=== PATIENT | female | born 1990 | race Caucasian/White ===

== ENCOUNTER 2016-05-29 19:40 | Emergency (ER) | payer OTHER ==
[~2016-05-29] VITALS: Ht 154.9 cm; Wt 52.2 kg
[2016-05-29] MEDS ORDERED: LAMI200T3 PO (19:59)
[2016-05-29] MEDS ORDERED: TYLE325T5 PO (19:59)
[2016-05-29] MEDS ORDERED: SEASTAB PO (19:59)
[2016-05-29] MEDS ORDERED: RISP0.5T16 PO (19:59)
[2016-05-29] MEDS ORDERED: BUSP10TA PO (19:59)
[2016-05-29] MEDS ORDERED: NS 1,000 ML IV SCH (21:17)
[2016-05-29] MEDS: MORPHINE 4 MG/ML 1ML SYRINGE IV PRN ×2 (21:30→23:42)
[2016-05-29 21:37] LABS: CONTROL LINE UCG INT CTR LINE PRESENT
[2016-05-29 21:40] LABS: BASO % 0.3 % (0.0-1.0); EOS # 0.1 K/mm3 (0.0-0.50); EOS % 1.8 % (0.0-3.0); LARGE UNSTAINED CELL # 0.1 K/mm3 (0.0-0.4); LYMPH # 3.3 K/mm3 (1.5-6.5); LYMPH % 49.6 % (24.0-44.0); MEAN CORPUSCULAR HEMOGLOBIN 31.2 pg (27.0-33.0); MEAN CORPUSCULAR HGB CONC 33.4 g/dl (32.0-36.5); MEAN CORPUSCULAR VOLUME 93.4 fl (80.0-96.0); MONO # 0.4 K/mm3 (0.0-0.8); MONO % 5.6 % (0.0-5.0); NEUTROPHILS # 2.6 K/mm3 (1.8-7.7); NEUTROPHILS % 40.8 % (36.0-66.0); PLATELET COUNT, AUTOMATED 281 k/mm3 (150-450); RED CELL DISTRIBUTION WIDTH 12.2 % (11.5-14.5); WHITE BLOOD COUNT 6.4 K/mm3 (4.0-10.0)
[2016-05-29 22:11] LABS: ALBUMIN 4.1 GM/DL (3.2-5.2); ALBUMIN/GLOBULIN RATIO 1.32 (1.00-1.93); ALKALINE PHOSPHATASE 59 U/L (45-117); ALT/SGPT 17 U/L (12-78); ANION GAP 6 MEQ/L (8-16); AST/SGOT 9 U/L (15-37); BILIRUBIN,DIRECT < 0.1 MG/DL (0.0-0.2); BILIRUBIN,TOTAL 0.3 MG/DL (0.2-1.0); BLOOD UREA NITROGEN 13 MG/DL (7-18); CALCIUM LEVEL 8.6 MG/DL (8.5-10.1); CARBON DIOXIDE LEVEL 28 MEQ/L (21-32); CHLORIDE LEVEL 107 MEQ/L (98-107); CREATININE FOR GFR 1.12 MG/DL (0.55-1.02); GLOMERULAR FILTRATION RATE > 60.0 (>60); GLUCOSE, FASTING 77 MG/DL (70-105); POTASSIUM SERUM 3.7 MEQ/L (3.5-5.1); SODIUM LEVEL 141 MEQ/L (136-145); TOTAL PROTEIN 7.2 GM/DL (6.4-8.2)
--- NOTE | 2016-05-29 23:30 | REPUSA ---
CLINICAL HISTORY: Abdominal pain. TECHNIQUE: Multiple axial, sagittal and coronal CT images were obtained through the abdomen and pelvi s without administration of oral or IV contrast material. COMMENTS: The liver is of uniform attenuation without mass or defect. There is no intra or extrahepatic biliary ductal dilatation. The spleen is normal. The gallbladder is within normal limits. The pancreas is of normal contour and attenuation characteristics. There is no evidence of adrenal mass. The kidneys are normal in size, shape and configuration. No renal or ureteral calculi are identified. There is no hydroureter or hydronephrosis. There is no evidence for appendicitis. There is no bowel wall thickening. Large amount of fecal mater ial is noted throughout the colon compatible with constipation. No evidence for small or large bowel obstruction. There is no evidence of abdominal ascites or lymphadenopathy. There is no evidence of intrinsic or extrinsic bladder mass. There is no pelvic ascites or lymphadeno cyndi. The uterus and ovaries are WNL. Images of the lung bases show no evidence of pleural or parenchymal mass. There are no pleural effusi ons. The bony structures are free of lytic or blastic lesions. IMPRESSION: Large amount of fecal material is noted throughout the colon compatible with constipation. Thank you for your kind referral of this patient.
--- NOTE | 2016-05-30 01:10 | REPUSA ---
CLINICAL HISTORY: Pelvic pain. TECHNIQUE: Realtime sonographic images were obtained in multiple projections via TV approach. COMMENTS: The uterus is anteverted measuring 7.8x3.3x4.9 cm. The endometrial echo pattern is within normal limi ts measuring 2.6 mm. There is no evidence of free fluid within the pelvic cul-de-sac. The right ovary measures 3x1.6x1.9 cm and the left ovary measures 2.7x1.6x2 cm. Both ovaries are free of solid or cystic mass. There is no evidence for abnormal vascularity. IMPRESSION: Normal study. Thank you for your kind referral of this patient.
[2016-05-30 01:54] VITALS: BP 125/76
== END 2016-05-30 01:55 | disposition home or self-care (01) ==
LOC: M ED 20:37
DX: K59.00 Constipation, unspecified (principal)

== ENCOUNTER → 2016-07-09 | Outpatient (CLI) | payer OTHER ==
[~2016-07-09] MED LIST: BUSP10TA PO; LAMI200T3 PO; RISP0.5T16 PO; SEASTAB PO; TYLE325T5 PO
--- NOTE | 2016-07-10 02:48 | REP ---
Clinical: thoracic pain. Technique: AP, lateral, and swimmers views. Findings: Kyphosis is maintained. Frontal view demonstrates subtle scoliotic curvature through the thoracolumbar spine. Vertebral bodies intact. No acute fracture / compression injury or subluxation. No degenerative changes. Paravertebral soft tissues are normal. Impression: Subtle scoliotic curvature to the lumbosacral spine. Otherwise normal examination. Signed by Brian Chung MD 07/10/2016 02:40 A
--- NOTE | 2016-07-10 03:01 | REP ---
Clinical: Cervicalgia. Technique: AP, lateral, flexion/extension, bilateral oblique, and open-mouth views. Findings: Alignment and lordosis is maintained. There is no evidence for acute fracture / compression injury or subluxation. No significant degenerative changes are appreciated. Oblique views demonstrate patent neural foramen. Open mouth view demonstrates normal C1-C2 articulation and odontoid process. Impression: Normal cervical spine series. Signed by Brian Chung MD 07/10/2016 02:53 A
== END ==
LOC: M LAB 10:54
PROVIDERS: ATTEND Nurse Practitioner Family
DX: M54.2 Cervicalgia (principal); M54.9 Dorsalgia, unspecified

== ENCOUNTER 2016-10-03 10:46 | Outpatient (RCR) | payer OTHER ==
[~2016-10-03 10:46] MED LIST changes: -IBUP1TAB7 PO; -PERCOCET PO
[2017-01-07] MEDS ORDERED: IBUP1TAB7 PO (13:12)
[2017-01-07] MEDS ORDERED: PERCOCET PO (13:14)
== END 2016-10-08 ==
LOC: M PT 10:46
PROVIDERS: ATTEND Nurse Practitioner Family
DX: Z51.89 Encounter for other specified aftercare (principal); M54.2 Cervicalgia; M54.9 Dorsalgia, unspecified

== ENCOUNTER → 2016-10-03 | Outpatient (REF) | payer OTHER ==
[~2016-10-03] MED LIST changes: +IBUP1TAB7 PO; +LAMI1TAB9 PO; -LAMI200T3 PO; +PERCOCET PO; -RISP0.5T16 PO; +RISP0.5T21 PO
== END ==
LOC: M SFHCWAGY 10:08
PROVIDERS: ATTEND Nurse Practitioner Women's Health
DX: Z12.4 Encounter for screening for malignant neoplasm of cervix (principal)

== ENCOUNTER 2016-10-26 11:05 | Outpatient (RCR) | payer MEDICAID, OTHER ==
[2017-01-07] MEDS ORDERED: IBUP1TAB7 PO (13:12)
[2017-01-07] MEDS ORDERED: PERCOCET PO (13:14)
== END 2016-11-08 | disposition home or self-care (01) ==
LOC: M PT 11:05
PROVIDERS: ATTEND Nurse Practitioner Family
DX: Z51.89 Encounter for other specified aftercare (principal); M54.2 Cervicalgia; M54.9 Dorsalgia, unspecified

== ENCOUNTER 2017-03-12 18:32 | Emergency (ER) | payer OTHER ==
[2017-03-12 20:41] LABS: KETONE, URINE AUTO RFX NEGATIVE (NEGATIVE); NITRITE, URINE AUTO RFX NEGATIVE (NEGATIVE); RBC, URINE AUTO RFX 2 /HPF (0-3); SPECIFIC GRAVITY UR AUTO RFX 1.006 (1.002-1.035); SQUAM EPITHELIAL CELL UR AURFX 4 /HPF (0-6); WBC, URINE AUTO RFX 4 /HPF (0-3)
[2017-03-12 20:42] LABS: LEUKOCYTE ESTERASE UR AUTO RFX 1+ (NEGATIVE)
[2017-03-12] MEDS: KETOROLAC 30 MG/ML VIAL (J1885) IV (21:15)
[2017-03-12] MEDS: NS 1,000 ML IV (21:15)
[2017-03-12 21:22] LABS: BASO % 0.5 % (0.0-1.0); EOS # 0.1 10^3/uL (0.0-0.50); EOS % 1.8 % (0.0-3.0); HEMATOCRIT 39.8 % (36.0-47.0); HEMOGLOBIN 13.7 g/dl (12.0-16.0); IMMATURE GRANULOCYTE % 0.3 % (0-0); LYMPH # 3.4 10^3/uL (1.5-6.5); LYMPH % 51.5 % (24.0-44.0); MEAN CORPUSCULAR HEMOGLOBIN 31.4 pg (27.0-33.0); MEAN CORPUSCULAR HGB CONC 34.4 g/dl (32.0-36.5); MEAN CORPUSCULAR VOLUME 91.3 fl (80.0-96.0); MONO # 0.5 10^3/uL (0.0-0.8); MONO % 6.8 % (0.0-5.0); NEUTROPHILS # 2.6 10^3/uL (1.8-7.7); NEUTROPHILS % 39.1 % (36.0-66.0); PLATELET COUNT, AUTOMATED 269 10^3/uL (150-450); RED BLOOD COUNT 4.36 10^6/uL (4.00-5.40); RED CELL DISTRIBUTION WIDTH 12.5 % (11.5-14.5); WHITE BLOOD COUNT 6.6 10^3/uL (4.0-10.0)
[2017-03-12 21:34] LABS: CONTROL LINE HCG INT CTR LINE PRESENT; HCG, SERUM QUALITATIVE NEGATIVE (NEGATIVE)
[2017-03-12 21:37] LABS: ANION GAP 9 MEQ/L (8-16); BLOOD UREA NITROGEN 12 MG/DL (7-18); CALCIUM LEVEL 8.9 MG/DL (8.5-10.1); CARBON DIOXIDE LEVEL 26 MEQ/L (21-32); CHLORIDE LEVEL 106 MEQ/L (98-107); CREATININE FOR GFR 0.67 MG/DL (0.55-1.02); GLOMERULAR FILTRATION RATE > 60.0 (>60); GLUCOSE, FASTING 76 MG/DL (70-105); POTASSIUM SERUM 3.7 MEQ/L (3.5-5.1); SODIUM LEVEL 141 MEQ/L (136-145)
[2017-03-12] MEDS: CIPROFLOXACIN 500 MG TAB PO (22:39)
== END 2017-03-12 23:02 | disposition home or self-care (01) ==
LOC: M ED 18:32
DX: N39.0 Urinary tract infection, site not specified (principal); F41.9 Anxiety disorder, unspecified; F32.9 Major depressive disorder, single episode, unspecified; F17.200 Nicotine dependence, unspecified, uncomplicated
CPT/HCPCS: J1885

== ENCOUNTER 2017-05-25 11:46 | Emergency (ER) | payer OTHER ==
[2017-05-25 12:40] LABS: CONTROL LINE UCG INT CTR LINE PRESENT; URINE PREG TEST NEGATIVE (NEGATIVE)
[2017-05-25 12:47] LABS: KETONE, URINE AUTO RFX NEGATIVE (NEGATIVE); LEUKOCYTE ESTERASE UR AUTO RFX 1+ (NEGATIVE); MUCUS, URINE RFX SMALL (NEGATIVE); NITRITE, URINE AUTO RFX NEGATIVE (NEGATIVE); RBC, URINE AUTO RFX 3 /HPF (0-3); SPECIFIC GRAVITY UR AUTO RFX 1.016 (1.002-1.035); SQUAM EPITHELIAL CELL UR AURFX 4 /HPF (0-6); WBC, URINE AUTO RFX 15 /HPF (0-3)
[2017-05-25] MEDS: CIPROFLOXACIN 500 MG TAB PO (13:12)
== END 2017-05-25 13:13 | disposition home or self-care (01) ==
LOC: M ED 11:46
DX: N10 Acute pyelonephritis (principal); N30.00 Acute cystitis without hematuria; Z98.890 Other specified postprocedural states; Z88.8 Allergy status to other drugs, medicaments and biological substances; Z91.018 Allergy to other foods; Z91.011 Allergy to milk products; Z79.899 Other long term (current) drug therapy
CPT/HCPCS: 84703

== ENCOUNTER 2017-07-04 23:08 | Emergency (ER) | payer OTHER ==
[2017-07-05] MEDS: KETOROLAC 60 MG/2 ML VIAL (J1885) IM (04:17)
[2017-07-05 04:32] LABS: ABG HCO3 20.2 MEQ/L (22.0-26.0); ABG O2 SATURATION 96.9 % (95.0-99.0); ABG PARTIAL PRESSURE CO2 31.2 mmHg (35.0-45.0); ABG PARTIAL PRESSURE O2 84.4 mmHg (75.0-100.0); ABG TOTAL CO2 21.2 MEQ/L (22.0-29.0)
[2017-07-05 05:27] LABS: BASO % 0.5 % (0.0-1.0); EOS # 0.1 10^3/uL (0.0-0.50); EOS % 1.8 % (0.0-3.0); HEMATOCRIT 37.8 % (36.0-47.0); HEMOGLOBIN 13.2 g/dl (12.0-15.5); IMMATURE GRANULOCYTE % 0.3 % (0-3.0); LYMPH # 4.1 10^3/uL (1.5-6.5); LYMPH % 53.1 % (24.0-44.0); MEAN CORPUSCULAR HEMOGLOBIN 31.7 pg (27.0-33.0); MEAN CORPUSCULAR HGB CONC 34.9 g/dl (32.0-36.5); MEAN CORPUSCULAR VOLUME 90.6 fl (80.0-96.0); MONO # 0.5 10^3/uL (0.0-0.8); MONO % 7.1 % (0.0-5.0); NEUTROPHILS # 2.8 10^3/uL (1.8-7.7); NEUTROPHILS % 37.2 % (36.0-66.0); PLATELET COUNT, AUTOMATED 235 10^3/uL (150-450); RED BLOOD COUNT 4.17 10^6/uL (4.00-5.40); RED CELL DISTRIBUTION WIDTH 12.9 % (11.5-14.5); WHITE BLOOD COUNT 7.6 10^3/uL (4.0-10.0)
[2017-07-05 05:41] LABS: ANION GAP 7 MEQ/L (8-16); BLOOD UREA NITROGEN 10 MG/DL (7-18); CALCIUM LEVEL 8.5 MG/DL (8.5-10.1); CARBON DIOXIDE LEVEL 22 MEQ/L (21-32); CHLORIDE LEVEL 113 MEQ/L (98-107); CONTROL LINE HCG INT CTR LINE PRESENT; CREATININE FOR GFR 0.74 MG/DL (0.55-1.30); GLOMERULAR FILTRATION RATE > 60.0 (>60); GLUCOSE, FASTING 86 MG/DL (70-100); HCG, SERUM QUALITATIVE NEGATIVE (NEGATIVE); INR 1.02; POTASSIUM SERUM 3.8 MEQ/L (3.5-5.1); PROTHROMBIN TIME 13.5 SECONDS (12.4-14.5); SODIUM LEVEL 142 MEQ/L (136-145)
[2017-07-05 05:42] LABS: PARTIAL THROMBOPLASTIN TIME 31.2 SECONDS (26.8-37.9)
[2017-07-05] MEDS ORDERED: ISOVUE-370 76% 100ML VIAL (Q9967) As Ordered (06:00)
== END 2017-07-05 06:42 | disposition home or self-care (01) ==
LOC: M ED 23:08
DX: R07.1 Chest pain on breathing (principal); F31.9 Bipolar disorder, unspecified; F17.210 Nicotine dependence, cigarettes, uncomplicated
CPT/HCPCS: Q9967

== ENCOUNTER 2017-08-18 10:48 | Emergency (ER) | payer OTHER ==
[2017-08-18] MEDS: ONDANSETRON 4MG/2ML VIAL (J2405) IV (11:32)
[2017-08-18] MEDS: ACETAMINOPH W/CODEINE #3 TAB UD PO (11:33)
[2017-08-18 11:35] LABS: BASO % 0.6 % (0.0-1.0); EOS # 0.1 10^3/uL (0.0-0.50); EOS % 1.9 % (0.0-3.0); HEMATOCRIT 42.4 % (36.0-47.0); HEMOGLOBIN 14.3 g/dl (12.0-15.5); IMMATURE GRANULOCYTE % 0.1 % (0-3.0); LYMPH # 2.1 10^3/uL (1.5-6.5); LYMPH % 31.3 % (24.0-44.0); MEAN CORPUSCULAR HGB CONC 33.7 g/dl (32.0-36.5); MEAN CORPUSCULAR VOLUME 91.8 fl (80.0-96.0); MONO # 0.5 10^3/uL (0.0-0.8); MONO % 6.8 % (0.0-5.0); NEUTROPHILS % 59.3 % (36.0-66.0); PLATELET COUNT, AUTOMATED 251 10^3/uL (150-450); RED BLOOD COUNT 4.62 10^6/uL (4.00-5.40); WHITE BLOOD COUNT 6.8 10^3/uL (4.0-10.0)
[2017-08-18 11:41] LABS: KETONE, URINE AUTO RFX NEGATIVE (NEGATIVE); MUCUS, URINE RFX SMALL (NEGATIVE); NITRITE, URINE AUTO RFX NEGATIVE (NEGATIVE); RBC, URINE AUTO RFX 5 /HPF (0-3); SPECIFIC GRAVITY UR AUTO RFX 1.009 (1.002-1.035); SQUAM EPITHELIAL CELL UR AURFX 4 /HPF (0-6); WBC, URINE AUTO RFX 8 /HPF (0-3)
[2017-08-18 11:42] LABS: LEUKOCYTE ESTERASE UR AUTO RFX 1+ (NEGATIVE)
[2017-08-18 11:51] LABS: ANION GAP 7 MEQ/L (8-16); BLOOD UREA NITROGEN 9 MG/DL (7-18); C REACTIVE PROTEIN QUANTITATIV 0.42 MG/DL (0.00-0.30); CALCIUM LEVEL 8.7 MG/DL (8.5-10.1); CARBON DIOXIDE LEVEL 24 MEQ/L (21-32); CHLORIDE LEVEL 110 MEQ/L (98-107); CREATININE FOR GFR 0.96 MG/DL (0.55-1.30); GLOMERULAR FILTRATION RATE > 60.0 (>60); GLUCOSE, FASTING 85 MG/DL (70-100); SODIUM LEVEL 141 MEQ/L (136-145)
== END 2017-08-18 12:16 | disposition home or self-care (01) ==
LOC: M ED 10:48
DX: N39.0 Urinary tract infection, site not specified (principal); F31.9 Bipolar disorder, unspecified; F41.9 Anxiety disorder, unspecified; F17.200 Nicotine dependence, unspecified, uncomplicated; Z88.8 Allergy status to other drugs, medicaments and biological substances; Z91.018 Allergy to other foods; Z91.011 Allergy to milk products; Z79.3 Long term (current) use of hormonal contraceptives; Z79.899 Other long term (current) drug therapy
CPT/HCPCS: J2405

== ENCOUNTER 2017-09-18 11:54 | Emergency (ER) | payer OTHER ==
[2017-09-18 13:52] LABS: BASO % 0.6 % (0.0-1.0); EOS # 0.1 10^3/uL (0.0-0.50); EOS % 1.2 % (0.0-3.0); HEMATOCRIT 41.7 % (36.0-47.0); HEMOGLOBIN 14.1 g/dl (12.0-15.5); IMMATURE GRANULOCYTE % 0.3 % (0-3.0); LYMPH # 2.3 10^3/uL (1.5-6.5); LYMPH % 33.6 % (24.0-44.0); MEAN CORPUSCULAR HEMOGLOBIN 31.3 pg (27.0-33.0); MEAN CORPUSCULAR HGB CONC 33.8 g/dl (32.0-36.5); MEAN CORPUSCULAR VOLUME 92.7 fl (80.0-96.0); MONO # 0.4 10^3/uL (0.0-0.8); MONO % 5.1 % (0.0-5.0); NEUTROPHILS # 4.1 10^3/uL (1.8-7.7); NEUTROPHILS % 59.2 % (36.0-66.0); PLATELET COUNT, AUTOMATED 282 10^3/uL (150-450); RED CELL DISTRIBUTION WIDTH 13.2 % (11.5-14.5); WHITE BLOOD COUNT 6.9 10^3/uL (4.0-10.0)
[2017-09-18] MEDS: NS 1,000 ML IV (13:53)
[2017-09-18 14:10] LABS: CONTROL LINE HCG INT CTR LINE PRESENT; HCG, SERUM QUALITATIVE NEGATIVE (NEGATIVE)
[2017-09-18 14:20] LABS: ALBUMIN/GLOBULIN RATIO 1.25 (1.00-1.93); ALKALINE PHOSPHATASE 65 U/L (45-117); ALT/SGPT 15 U/L (12-78); ANION GAP 7 MEQ/L (8-16); AST/SGOT 8 U/L (7-37); BILIRUBIN,DIRECT 0.1 MG/DL (0.0-0.2); BILIRUBIN,TOTAL 0.5 MG/DL (0.2-1.0); BLOOD UREA NITROGEN 6 MG/DL (7-18); CALCIUM LEVEL 8.4 MG/DL (8.5-10.1); CARBON DIOXIDE LEVEL 23 MEQ/L (21-32); CHLORIDE LEVEL 111 MEQ/L (98-107); CREATININE FOR GFR 0.78 MG/DL (0.55-1.30); GLOMERULAR FILTRATION RATE > 60.0 (>60); GLUCOSE, FASTING 84 MG/DL (70-100); LIPASE 117 U/L (73-393); LITHIUM LEVEL 0.22 MEQ/L (0.60-1.20); POTASSIUM SERUM 4.3 MEQ/L (3.5-5.1); SODIUM LEVEL 141 MEQ/L (136-145); TOTAL PROTEIN 7.2 GM/DL (6.4-8.2)
[2017-09-21 00:14] LABS: LAMOTRIGINE (LAMICTAL) 2.5 ug/mL (2.0-20.0)
== END 2017-09-18 16:16 | disposition home or self-care (01) ==
LOC: M ED 11:54
DX: R11.2 Nausea with vomiting, unspecified (principal); I45.19 Other right bundle-branch block; Z79.899 Other long term (current) drug therapy; Z91.011 Allergy to milk products; Z91.018 Allergy to other foods; Z88.8 Allergy status to other drugs, medicaments and biological substances
CPT/HCPCS: 93005

== ENCOUNTER → 2017-10-04 | Outpatient (REF) | payer OTHER | LOC: M SFHCWAGY 10:25 | DX: Z12.4 Encounter for screening for malignant neoplasm of cervix (principal) ==

== ENCOUNTER → 2017-10-08 | Outpatient (REF) | payer OTHER ==
[2017-10-08 13:10] LABS: BASO % 0.5 % (0.0-1.0); EOS # 0.2 10^3/uL (0.0-0.50); EOS % 2.3 % (0.0-3.0); HEMATOCRIT 42.3 % (36.0-47.0); HEMOGLOBIN 14.1 g/dl (12.0-15.5); IMMATURE GRANULOCYTE % 0.5 % (0-3.0); LYMPH # 2.6 10^3/uL (1.5-6.5); MEAN CORPUSCULAR HEMOGLOBIN 31.4 pg (27.0-33.0); MEAN CORPUSCULAR HGB CONC 33.3 g/dl (32.0-36.5); MEAN CORPUSCULAR VOLUME 94.2 fl (80.0-96.0); MONO # 0.4 10^3/uL (0.0-0.8); MONO % 6.6 % (0.0-5.0); NEUTROPHILS # 3.1 10^3/uL (1.8-7.7); NEUTROPHILS % 49.1 % (36.0-66.0); PLATELET COUNT, AUTOMATED 265 10^3/uL (150-450); RED BLOOD COUNT 4.49 10^6/uL (4.00-5.40); RED CELL DISTRIBUTION WIDTH 13.2 % (11.5-14.5); WHITE BLOOD COUNT 6.4 10^3/uL (4.0-10.0)
[2017-10-08 13:31] LABS: FOLATE 13.8 NG/ML; VITAMIN B12 LEVEL 378 PG/ML
[2017-10-08 13:38] LABS: ERYTHROCYTE SEDIMENTATION RATE 3 mm/hr (0-20)
[2017-10-08 13:42] LABS: ALBUMIN 3.9 GM/DL (3.2-5.2); ALBUMIN/GLOBULIN RATIO 1.26 (1.00-1.93); ALKALINE PHOSPHATASE 59 U/L (45-117); ALT/SGPT 16 U/L (12-78); ANION GAP 10 MEQ/L (8-16); AST/SGOT 5 U/L (7-37); BILIRUBIN,TOTAL 0.3 MG/DL (0.2-1.0); BLOOD UREA NITROGEN 8 MG/DL (7-18); CALCIUM LEVEL 8.7 MG/DL (8.5-10.1); CARBON DIOXIDE LEVEL 22 MEQ/L (21-32); CHLORIDE LEVEL 110 MEQ/L (98-107); CREATININE FOR GFR 0.89 MG/DL (0.55-1.30); GLOMERULAR FILTRATION RATE > 60.0 (>60); GLUCOSE, FASTING 90 MG/DL (70-100); POTASSIUM SERUM 4.1 MEQ/L (3.5-5.1); RHEUMATOID FACTOR QUANT < 10.0 IU/ML (<15.0); SODIUM LEVEL 142 MEQ/L (136-145)
[2017-10-08 13:44] LABS: ESTIMATED AVERAGE GLUCOSE 94 MG/DL (60-110); HEMOGLOBIN A1c 4.9 %
[2017-10-08 13:56] LABS: DRVV SCREEN 32.9 SEC
[2017-10-08 14:27] LABS: PTT LUPUS TYPE ANTICOAG SCREEN 0.8 (0-1.2)
[2017-10-10 12:45] LABS: ALBUMIN 4.39 GM/DL (3.29-5.55); ALBUMIN % 62.7 % (55.8-66.1); ALPHA-1-GLOBULINS 0.42 GM/DL (0.17-0.41); ALPHA-2-GLOBULINS 0.78 GM/DL (0.42-0.99); ALPHA-2-GLOBULINS % 11.1 % (7.1-11.8); BETA-1-GLOBULINS % 7.2 % (4.7-7.2); BETA-2-GLOBULINS 0.25 GM/DL (0.19-0.55); BETA-2-GLOBULINS % 3.6 % (3.2-6.5); GAMMA GLOBULIN % 9.4 % (11.1-18.8); GAMMA GLOBULINS 0.66 GM/DL (0.65-1.58)
[2017-10-12 08:09] LABS: ANCA-ATYPICAL <1:20 titer (Neg:<1:20); ANTI DOUBLE STRAND-DNA AB 1 IU/mL (0-9); ANTINUCLEAR ANTIBODIES DIRECT Negative (Negative); CERULOPLASMIN 44.9 mg/dL (19.0-39.0); COPPER PLASMA 180 ug/dL (72-166); CYTOPLASMIC NEUTROP AB ANCA-C <1:20 titer (Neg:<1:20); LEAD BLOOD ADULT 1 ug/dL (0-19); MERCURY LEVEL None Detected ug/L (0.0-14.9); PERINUCLEAR AB ANCA-P <1:20 titer (Neg:<1:20); SJOGREN'S ANTI SS-A <0.2 AI (0.0-0.9); SJOGREN'S ANTI SS-B <0.2 AI (0.0-0.9); VITAMIN B1 LEVEL WHOLE BLOOD 136.6 nmol/L (66.5-200.0); VITAMIN B6,PYRIDOXAL PHOSPHATE 4.3 ug/L (2.0-32.8); VITAMIN E(ALPHA TOCOPHEROL) 7.2 mg/L (5.9-19.4); VITAMIN E(GAMMA TOCOPHEROL) 0.5 mg/L (0.7-4.9)
== END ==
LOC: M LABNEURO 09:29
DX: R51 Headache (principal); G31.84 Mild cognitive impairment of uncertain or unknown etiology
CPT/HCPCS: 82525

== ENCOUNTER → 2017-12-12 | Outpatient (REF) | payer OTHER | LOC: M LAB REF 18:16 | DX: Z12.4 Encounter for screening for malignant neoplasm of cervix (principal) ==

== ENCOUNTER 2018-01-01 06:54 | Day surgery (SDC) | payer OTHER ==
[2018-01-01 07:12] LABS: HEMATOCRIT 43.9 % (36.0-47.0); HEMOGLOBIN 14.6 g/dl (12.0-15.5); MEAN CORPUSCULAR HEMOGLOBIN 31.3 pg (27.0-33.0); MEAN CORPUSCULAR HGB CONC 33.3 g/dl (32.0-36.5); MEAN CORPUSCULAR VOLUME 94.2 fl (80.0-96.0); PLATELET COUNT, AUTOMATED 259 10^3/uL (150-450); RED BLOOD COUNT 4.66 10^6/uL (4.00-5.40); RED CELL DISTRIBUTION WIDTH 13.1 % (11.5-14.5); WHITE BLOOD COUNT 9.4 10^3/uL (4.0-10.0)
[2018-01-01] MEDS ORDERED: LR 1,000 ML IV ×2 (07:30→11:00)
[2018-01-01] MEDS: METHYLENE BLUE 0.5% (5MG/ML) 10 ML AMP (PROVAYBLUE)(Q9968 PER 1MG) As Ordered (07:56)
[2018-01-01] MEDS ORDERED: dexameTHASONE 4 MG/ML 1ML VIAL (J1100) As Ordered (09:03)
[2018-01-01] MEDS ORDERED: KETOROLAC 60 MG/2 ML VIAL (J1885) As Ordered (09:03)
[2018-01-01] MEDS ORDERED: HYDROmorphone HCL 2 MG/ML 1ML VIAL (J1170) As Ordered (09:03)
[2018-01-01] MEDS ORDERED: LIDOCAINE 2% INJ 100 MG/5 ML SDV (FOR ANES.) As Ordered (09:03)
[2018-01-01] MEDS ORDERED: PROPOFOL 200 MG/20 ML VIAL As Ordered (09:03)
[2018-01-01] MEDS ORDERED: ONDANSETRON 4MG/2ML VIAL (J2405) As Ordered (09:03)
[2018-01-01] MEDS ORDERED: fentaNYL 250 MCG/5 ML INJECTION (J3010) As Ordered (09:03)
[2018-01-01] MEDS ORDERED: ROCURONIUM BROMIDE 50 MG/5 ML VIAL As Ordered ×2 (09:03→09:19)
[2018-01-01] MEDS ORDERED: MIDAZOLAM INJ 2 MG/2 ML VIAL (J2250) As Ordered (09:03)
[2018-01-01] MEDS ORDERED: GLYCOPYRROLATE INJ 0.2 MG/ML 2 ML VIAL As Ordered ×2 (09:14)
[2018-01-01] MEDS ORDERED: NEOSTIGMINE 10 MG/10 ML VIAL (J2710) As Ordered (09:14)
[2018-01-01] MEDS: BUPIVACAINE HCL 0.25% 30 ML VIAL As Ordered (09:20)
[2018-01-01] MEDS ORDERED: ONDANSETRON 4MG/2ML VIAL (J2405) IV (11:00)
[2018-01-01] MEDS ORDERED: NORCO, ANEXSIA 5/325MG TABLET (HYDROcodone/ACETAMINOPHEN) PO (11:00)
[2018-01-01] MEDS ORDERED: fentaNYL 100 MCG/2 ML INJECTION (J3010) IV (11:00)
[2018-01-01] MEDS ORDERED: PERCOCET 5MG/325MG TAB PO (11:15)
[2018-01-01] MEDS ORDERED: zolPIDEM TARTRATE 10MG TAB PO (11:15)
[2018-01-01] MEDS ORDERED: MORPHINE 4 MG/ML 1ML VIAL/SYRINGE (J2270) IV (11:15)
[2018-01-01] MEDS: PERCOCET 5MG/325MG TAB PO ×2 (11:30→15:31)
[2018-01-01] MEDS ORDERED: zolPIDEM TARTRATE 5 MG TAB PO (13:00)
[2018-01-01] MEDS ORDERED: KETOROLAC 30 MG/ML VIAL (J1885) IV (16:00)
== END 2018-01-01 17:25 | disposition home or self-care (01) ==
LOC: M SDC 06:54 → M PED 11:44 → M SDC 17:25
DX: R10.2 Pelvic and perineal pain (principal); N80.0 Endometriosis of uterus; F41.9 Anxiety disorder, unspecified; F17.210 Nicotine dependence, cigarettes, uncomplicated; Z79.899 Other long term (current) drug therapy; Z88.8 Allergy status to other drugs, medicaments and biological substances
CPT/HCPCS: 58571

== ENCOUNTER → 2018-02-19 | Outpatient (CLI) | payer OTHER ==
[2018-02-19 13:49] LABS: ALBUMIN 4.5 GM/DL (3.2-5.2); ALKALINE PHOSPHATASE 105 U/L (45-117); ALT/SGPT 72 U/L (12-78); ANION GAP 8 MEQ/L (8-16); AST/SGOT 31 U/L (7-37); BILIRUBIN,TOTAL 0.5 MG/DL (0.2-1.0); BLOOD UREA NITROGEN 6 MG/DL (7-18); CALCIUM LEVEL 9.3 MG/DL (8.5-10.1); CARBON DIOXIDE LEVEL 24 MEQ/L (21-32); CHLORIDE LEVEL 109 MEQ/L (98-107); CREATININE FOR GFR 0.92 MG/DL (0.55-1.30); GLOMERULAR FILTRATION RATE > 60.0 (>60); GLUCOSE, FASTING 79 MG/DL (70-100); POTASSIUM SERUM 4.3 MEQ/L (3.5-5.1); SODIUM LEVEL 141 MEQ/L (136-145); TOTAL PROTEIN 7.5 GM/DL (6.4-8.2)
[2018-02-21 08:06] LABS: COPPER PLASMA 125 ug/dL (72-166)
== END ==
LOC: M LAB 11:44
DX: R79.0 Abnormal level of blood mineral (principal)
CPT/HCPCS: 82525

== ENCOUNTER → 2018-02-21 | Outpatient (REF) | payer OTHER ==
[~2018-02-21] MED LIST changes: +ADDE1TAB14 PO; +CIPR-249 PO; +IBUP1TAB7 PO; +KETO10TAB PO; +LAMO100T PO; +LAMO200T2 PO; +LITH150C PO; +MACR100C43 PO; +PERCOCET PO; +RISP1TAB42 PO
== END ==
LOC: M LAB REF 11:11
PROVIDERS: ATTEND Nurse Practitioner Family
DX: R79.0 Abnormal level of blood mineral (principal)

== ENCOUNTER → 2018-04-05 | Outpatient (REF) | payer OTHER ==
[~2018-04-05] MED LIST changes: +ARIP1TAB2 PO; +MIRT15TA3 PO
[2018-04-05 17:40] LABS: APPEARANCE, URINE HAZY (CLEAR); BACTERIA, URINE AUTO 1+ (NEGATIVE); BILIRUBIN, URINE AUTO NEGATIVE (NEGATIVE); BLOOD, URINE BLOOD NEGATIVE (NEGATIVE); COLOR, URINE YELLOW (YELLOW); GLUCOSE, URINE (UA) AUTO NEGATIVE (NEGATIVE); KETONE, URINE AUTO NEGATIVE (NEGATIVE); LEUKOCYTE ESTERASE, URINE AUTO NEGATIVE (NEGATIVE); MUCUS, URINE SMALL (NEGATIVE); NITRITE, URINE AUTO NEGATIVE (NEGATIVE); PROTEIN, URINE AUTO NEGATIVE (NEGATIVE); RBC, URINE AUTO 2 /HPF (0-3); SPECIFIC GRAVITY URINE AUTO 1.008 (1.002-1.035); SQUAMOUS EPITHELIAL CELL UR AU 6 /HPF (0-6); UROBILINOGEN, URINE AUTO 0.2 mg/dL (0.0-2.0); WBC, URINE AUTO 2 /HPF (0-3)
== END ==
LOC: M LAB REF 10:06
PROVIDERS: ATTEND Nurse Practitioner Family
DX: N39.0 Urinary tract infection, site not specified (principal)

== ENCOUNTER → 2018-04-14 | Outpatient (REF) | payer OTHER ==
[~2018-04-14] MED LIST changes: -ARIP1TAB2 PO; -MIRT15TA3 PO
[2018-04-14 18:40] LABS: BASO % 0.6 % (0.0-1.0); EOS # 0.1 10^3/uL (0.0-0.50); EOS % 2.1 % (0.0-3.0); HEMATOCRIT 44.7 % (36.0-47.0); HEMOGLOBIN 15.2 g/dl (12.0-15.5); LYMPH # 2.5 10^3/uL (1.5-6.5); LYMPH % 37.5 % (24.0-44.0); MEAN CORPUSCULAR HEMOGLOBIN 31.7 pg (27.0-33.0); MEAN CORPUSCULAR VOLUME 93.3 fl (80.0-96.0); MONO # 0.4 10^3/uL (0.0-0.8); MONO % 6.4 % (0.0-5.0); NEUTROPHILS # 3.6 10^3/uL (1.8-7.7); NEUTROPHILS % 53.3 % (36.0-66.0); PLATELET COUNT, AUTOMATED 291 10^3/uL (150-450); RED BLOOD COUNT 4.79 10^6/uL (4.00-5.40); WHITE BLOOD COUNT 6.8 10^3/uL (4.0-10.0)
[2018-04-14 19:05] LABS: ERYTHROCYTE SEDIMENTATION RATE 1 mm/hr (0-20)
[2018-04-14 19:32] LABS: HEMOGLOBIN A1c 4.8 %
[2018-04-14 19:37] LABS: ALBUMIN 4.6 GM/DL (3.2-5.2); ALT/SGPT 31 U/L (12-78); BILIRUBIN,TOTAL 0.8 MG/DL (0.2-1.0); BLOOD UREA NITROGEN 12 MG/DL (7-18); CALCIUM LEVEL 8.8 MG/DL (8.5-10.1); CARBON DIOXIDE LEVEL 22 MEQ/L (21-32); CHLORIDE LEVEL 108 MEQ/L (98-107); CREATININE FOR GFR 1.01 MG/DL (0.55-1.30); GLOMERULAR FILTRATION RATE > 60.0 (>60); GLUCOSE, FASTING 73 MG/DL (70-100); POTASSIUM SERUM 4.3 MEQ/L (3.5-5.1); RHEUMATOID FACTOR QUANT < 10.0 IU/ML (<15.0); SODIUM LEVEL 139 MEQ/L (136-145); TOTAL PROTEIN 7.5 GM/DL (6.4-8.2)
[2018-04-14 19:38] LABS: FOLATE 16.1 NG/ML
[2018-04-15 13:11] LABS: ALBUMIN % 67.7 % (55.8-66.1); ALPHA-1-GLOBULIN % 4.7 % (2.9-4.9)
[2018-04-15 13:12] LABS: ALBUMIN 5.08 GM/DL (3.29-5.55); ALPHA-1-GLOBULINS 0.35 GM/DL (0.17-0.41); ALPHA-2-GLOBULINS 0.73 GM/DL (0.42-0.99); ALPHA-2-GLOBULINS % 9.7 % (7.1-11.8); BETA-1-GLOBULINS 0.44 GM/DL (0.28-0.60); BETA-1-GLOBULINS % 5.9 % (4.7-7.2); BETA-2-GLOBULINS 0.24 GM/DL (0.19-0.55); BETA-2-GLOBULINS % 3.2 % (3.2-6.5); GAMMA GLOBULIN % 8.8 % (11.1-18.8); GAMMA GLOBULINS 0.66 GM/DL (0.65-1.58)
[2018-04-16 10:48] LABS: VITAMIN B12 LEVEL 390 PG/ML (232-1245)
[2018-04-18 00:07] LABS: VITAMIN E(ALPHA TOCOPHEROL) 8.1 mg/L (5.9-19.4); VITAMIN E(GAMMA TOCOPHEROL) 0.7 mg/L (0.7-4.9)
== END ==
LOC: M LABNEURO 12:15
PROVIDERS: ATTEND Psychiatry & Neurology Neurology
DX: G62.9 Polyneuropathy, unspecified (principal)

== ENCOUNTER 2018-04-16 13:27 | Emergency (ER) | payer OTHER ==
[~2018-04-16] VITALS: Ht 160 cm; Wt 59.1 kg
[2018-04-16] MEDS ORDERED: NAPROXEN 250 MG TAB PO ONE (13:45)
[2018-04-16 14:18] LABS: HEMATOCRIT 40.2 % (36.0-47.0); HEMOGLOBIN 13.7 g/dl (12.0-15.5); MEAN CORPUSCULAR HEMOGLOBIN 31.3 pg (27.0-33.0); MEAN CORPUSCULAR HGB CONC 34.1 g/dl (32.0-36.5); MEAN CORPUSCULAR VOLUME 91.8 fl (80.0-96.0); PLATELET COUNT, AUTOMATED 256 10^3/uL (150-450); RED BLOOD COUNT 4.38 10^6/uL (4.00-5.40); WHITE BLOOD COUNT 7.6 10^3/uL (4.0-10.0)
[2018-04-16 14:44] LABS: ERYTHROCYTE SEDIMENTATION RATE 2 mm/hr (0-20)
[2018-04-16 15:24] VITALS: BP 109/56
== END 2018-04-16 15:23 | disposition home or self-care (01) ==
LOC: M ED 13:27
DX: N64.4 Mastodynia (principal)

== ENCOUNTER 2018-05-11 14:55 | Emergency (ER) | payer OTHER ==
[~2018-05-11] VITALS: Ht 160 cm; Wt 59.1 kg
[2018-05-11] MEDS ORDERED: MIRT15TA3 PO (15:01)
[2018-05-11] MEDS ORDERED: ARIP1TAB2 PO (15:01)
[2018-05-11] MEDS ORDERED: ADACEL/BOOSTRIX VACCINE (DIPHTH/PERTUSS/ACELL/TETANUS)0.5ML SYR (90715) IM ONE (15:45)
[2018-05-11] MEDS ORDERED: LIDOCAINE 1% MDV 20ML VIAL SC ONE (15:45)
[2018-05-11 16:37] VITALS: BP 116/67
== END 2018-05-11 16:50 | disposition home or self-care (01) ==
LOC: M ED 14:55
DX: S61.412A Laceration without foreign body of left hand, initial encounter (principal); W26.0XXA Contact with knife, initial encounter; Y92.018 Other place in single-family (private) house as the place of occurrence of the external cause; Z88.8 Allergy status to other drugs, medicaments and biological substances; Z91.018 Allergy to other foods; F17.210 Nicotine dependence, cigarettes, uncomplicated

== ENCOUNTER → 2018-06-25 | Outpatient (CLI) | payer OTHER ==
[~2018-06-25] MED LIST changes: +ARIP1TAB2 PO; +MIRT15TA3 PO
[2018-06-25 12:58] LABS: APPEARANCE, URINE HAZY (CLEAR); BACTERIA, URINE AUTO 1+ (NEGATIVE); BILIRUBIN, URINE AUTO NEGATIVE (NEGATIVE); BLOOD, URINE BLOOD NEGATIVE (NEGATIVE); COLOR, URINE YELLOW (YELLOW); GLUCOSE, URINE (UA) AUTO NEGATIVE (NEGATIVE); KETONE, URINE AUTO TRACE mg/dL (NEGATIVE); LEUKOCYTE ESTERASE, URINE AUTO NEGATIVE (NEGATIVE); MUCUS, URINE SMALL (NEGATIVE); NITRITE, URINE AUTO NEGATIVE (NEGATIVE); PROTEIN, URINE AUTO NEGATIVE (NEGATIVE); RBC, URINE AUTO 3 /HPF (0-3); SPECIFIC GRAVITY URINE AUTO 1.023 (1.002-1.035); SQUAMOUS EPITHELIAL CELL UR AU 6 /HPF (0-6); UROBILINOGEN, URINE AUTO 0.2 mg/dL (0.0-2.0); WBC, URINE AUTO 2 /HPF (0-3)
[2018-06-25 12:59] LABS: HEMATOCRIT 42.8 % (36.0-47.0); HEMOGLOBIN 14.1 g/dl (12.0-15.5); MEAN CORPUSCULAR HEMOGLOBIN 31.5 pg (27.0-33.0); MEAN CORPUSCULAR HGB CONC 32.9 g/dl (32.0-36.5); MEAN CORPUSCULAR VOLUME 95.7 fl (80.0-96.0); PLATELET COUNT, AUTOMATED 255 10^3/uL (150-450); RED BLOOD COUNT 4.47 10^6/uL (4.00-5.40); WHITE BLOOD COUNT 8.1 10^3/uL (4.0-10.0)
[2018-06-25 13:39] LABS: ALBUMIN 4.3 GM/DL (3.2-5.2); ALT/SGPT 21 U/L (12-78); BILIRUBIN,TOTAL 0.4 MG/DL (0.2-1.0); BLOOD UREA NITROGEN 10 MG/DL (7-18); CALCIUM LEVEL 8.7 MG/DL (8.5-10.1); CARBON DIOXIDE LEVEL 24 MEQ/L (21-32); CHLORIDE LEVEL 111 MEQ/L (98-107); CHOLESTEROL LEVEL 174 MG/DL (<200); CHOLESTEROL RISK RATIO 2.806 (<5); CREATININE FOR GFR 0.86 MG/DL (0.55-1.30); GLOMERULAR FILTRATION RATE > 60.0 (>60); GLUCOSE, FASTING 94 MG/DL (70-100); HDL CHOLESTEROL 62 MG/DL (>40); LDL CHOLESTEROL 96 MG/DL (<100); LITHIUM LEVEL 0.32 MEQ/L (0.60-1.20); MAGNESIUM LEVEL 2.2 MG/DL (1.8-2.4); NON-HDL-C 112 MG/DL; SODIUM LEVEL 142 MEQ/L (136-145); THYROID STIMULATING HORMONE 0.826 uIU/ML (0.358-3.740); TOTAL 25(OH) VITAMIN D 17.1 NG/ML (30.0-100.0); TOTAL PROTEIN 6.8 GM/DL (6.4-8.2); TRIGLYCERIDES LEVEL 78 MG/DL (<150)
== END ==
LOC: M LAB 12:03
PROVIDERS: ATTEND Nurse Practitioner Family
DX: Z13.220 Encounter for screening for lipoid disorders (principal); F31.9 Bipolar disorder, unspecified; E55.9 Vitamin D deficiency, unspecified; R35.0 Frequency of micturition

== ENCOUNTER → 2018-07-09 | Outpatient (CLI) | payer OTHER ==
[2018-07-09 13:48] LABS: HEMOGLOBIN 14.2 g/dl (12.0-15.5); MEAN CORPUSCULAR HEMOGLOBIN 31.5 pg (27.0-33.0); MEAN CORPUSCULAR VOLUME 95.3 fl (80.0-96.0); PLATELET COUNT, AUTOMATED 277 10^3/uL (150-450); RED BLOOD COUNT 4.51 10^6/uL (4.00-5.40); WHITE BLOOD COUNT 7.9 10^3/uL (4.0-10.0)
[2018-07-09 14:18] LABS: ALBUMIN 4.5 GM/DL (3.2-5.2); ALT/SGPT 23 U/L (12-78); BILIRUBIN,TOTAL 0.4 MG/DL (0.2-1.0); BLOOD UREA NITROGEN 9 MG/DL (7-18); CALCIUM LEVEL 9.1 MG/DL (8.5-10.1); CARBON DIOXIDE LEVEL 28 MEQ/L (21-32); CHLORIDE LEVEL 108 MEQ/L (98-107); GLOMERULAR FILTRATION RATE > 60.0 (>60); GLUCOSE, FASTING 71 MG/DL (70-100); LITHIUM LEVEL 0.32 MEQ/L (0.60-1.20); POTASSIUM SERUM 4.3 MEQ/L (3.5-5.1); SODIUM LEVEL 140 MEQ/L (136-145); THYROID STIMULATING HORMONE 0.912 uIU/ML (0.358-3.740); TOTAL 25(OH) VITAMIN D 29.7 NG/ML (30.0-100.0); TOTAL PROTEIN 7.2 GM/DL (6.4-8.2)
== END ==
LOC: M LAB 12:35
PROVIDERS: ATTEND Nurse Practitioner Psychiatric/Mental Health
DX: Z79.899 Other long term (current) drug therapy (principal)

== ENCOUNTER → 2018-10-06 | Outpatient (REF) | payer OTHER ==
[2018-10-09 14:08] LABS: HPV HYBRID CAPTURE II Negative (Negative)
== END ==
LOC: M SFHCWAGY 10:46
PROVIDERS: ATTEND Nurse Practitioner Women's Health
DX: Z12.4 Encounter for screening for malignant neoplasm of cervix (principal); R87.610 Atypical squamous cells of undetermined significance on cytologic smear of cervix (ASC-US)

== ENCOUNTER 2018-10-28 21:24 | Emergency (ER) | payer OTHER ==
[~2018-10-28] VITALS: Ht 160 cm; Wt 59.1 kg
[2018-10-28] MEDS ORDERED: SERO1TAB3 PO (21:35)
[2018-10-28] MEDS ORDERED: QUET5TAB PO (21:55)
[2018-10-28] MEDS ORDERED: TOPI50TA9 PO (21:55)
--- NOTE | 2018-10-28 22:28 | REPVR ---
EXAM: CT Head Without Contrast EXAM DATE/TIME: 10/28/2018 10:00 PM CLINICAL HISTORY: 28 years old, female; Pain; Headache TECHNIQUE: Imaging protocol: Computed tomography images of the head without contrast. Radiation optimization: All CT scans at this facility use at least one of these dose optimization techniques: automated exposure control; mA and/or kV adjustment per patient size (includes targeted exams where dose is matched to clinical indication); or iterative reconstruction. COMPARISON: CT Head without contrast 12/19/2011 9:20 PM FINDINGS: Brain: Normal. No hemorrhage. Unremarkable white matter. No mass effect. Ventricles: Normal. No ventriculomegaly. Bones/joints: Unremarkable. No acute fracture. Sinuses: Visualized sinuses are unremarkable. No fluid levels. Mastoid air cells: Visualized mastoid air cells are well aerated. No mastoid effusion. Soft tissues: Unremarkable. IMPRESSION: Negative noncontrast head CT without change from 12/19/2011. Electronically signed by: Sonny Guzman On 10/28/2018 22:28:00 PM
[2018-10-28] MEDS ORDERED: KETOROLAC 30 MG/ML VIAL (J1885) IV ONE (23:15)
[2018-10-29 01:00] VITALS: BP 119/71
== END 2018-10-29 01:30 | disposition home or self-care (01) ==
LOC: M ED 21:24
DX: G43.909 Migraine, unspecified, not intractable, without status migrainosus (principal); F31.9 Bipolar disorder, unspecified; Z88.8 Allergy status to other drugs, medicaments and biological substances; Z91.011 Allergy to milk products; Z91.018 Allergy to other foods; Z79.899 Other long term (current) drug therapy
CPT/HCPCS: 70450; 96374; 99284; J1885

== ENCOUNTER → 2018-11-06 | Outpatient (REF) | payer OTHER ==
[~2018-11-06] MED LIST changes: +QUET5TAB PO; +SERO1TAB3 PO; +TOPI50TA9 PO
[2018-11-06 11:57] LABS: FREE T4 1.01 NG/DL (0.76-1.46); PROLACTIN 10.9 NG/ML; THYROID STIMULATING HORMONE 1.26 uIU/ML (0.358-3.740)
== END ==
LOC: M SFHCWAGY 08:24
PROVIDERS: ATTEND Nurse Practitioner Women's Health
DX: N64.52 Nipple discharge (principal)

== ENCOUNTER → 2018-11-24 | Outpatient (CLI) | payer OTHER ==
[~2018-11-24] MED LIST changes: +LACT10SO29 PO; -LAMO100T PO; +LAMO100T3 PO; -LAMO200T2 PO; +LAMO200T3 PO; +LITH300C PO; +QUET1TAB8 PO
[2018-11-24 12:42] LABS: BASO % 0.5 % (0.0-1.0); EOS # 0.2 10^3/uL (0.0-0.5); HEMATOCRIT 45.1 % (36.0-47.0); HEMOGLOBIN 14.9 g/dl (12.0-15.5); LYMPH % 35.8 % (24.0-44.0); MEAN CORPUSCULAR HEMOGLOBIN 30.8 pg (27.0-33.0); MEAN CORPUSCULAR VOLUME 93.2 fl (80.0-96.0); MONO # 0.5 10^3/uL (0.0-0.8); MONO % 5.4 % (0.0-5.0); NEUTROPHILS # 4.7 10^3/uL (1.5-8.5); NEUTROPHILS % 55.9 % (36.0-66.0); PLATELET COUNT, AUTOMATED 253 10^3/uL (150-450); RED BLOOD COUNT 4.84 10^6/uL (4.00-5.40); WHITE BLOOD COUNT 8.5 10^3/uL (4.0-10.0)
[2018-11-24 12:53] LABS: HEMOGLOBIN A1c 4.9 %
[2018-11-24 12:59] LABS: ALBUMIN 4.5 GM/DL (3.2-5.2); ALT/SGPT 17 U/L (12-78); BILIRUBIN,TOTAL 0.5 MG/DL (0.2-1.0); BLOOD UREA NITROGEN 6 MG/DL (7-18); CALCIUM LEVEL 9.2 MG/DL (8.5-10.1); CARBON DIOXIDE LEVEL 25 MEQ/L (21-32); CHLORIDE LEVEL 110 MEQ/L (98-107); CHOLESTEROL LEVEL 190 MG/DL (<200); CHOLESTEROL RISK RATIO 3.454 (<5); CREATININE FOR GFR 0.75 MG/DL (0.55-1.30); FREE T4 1.08 NG/DL (0.76-1.46); GLOMERULAR FILTRATION RATE > 60.0 (>60); GLUCOSE, FASTING 83 MG/DL (70-100); HDL CHOLESTEROL 55 MG/DL (>40); LDL CHOLESTEROL 99 MG/DL (<100); NON-HDL-C 135 MG/DL; POTASSIUM SERUM 4.1 MEQ/L (3.5-5.1); SODIUM LEVEL 142 MEQ/L (136-145); TRIGLYCERIDES LEVEL 182 MG/DL (<150)
[2018-11-27 08:06] LABS: LAMOTRIGINE (LAMICTAL) 3.3 ug/mL (2.0-20.0)
== END ==
LOC: M LAB 10:58
PROVIDERS: ATTEND Psychiatry & Neurology Child & Adolescent Psychiatry
DX: F31.9 Bipolar disorder, unspecified (principal)

== ENCOUNTER 2018-12-26 17:02 | Emergency (ER) | payer OTHER ==
[~2018-12-26] VITALS: Ht 160 cm; Wt 60.6 kg
[~2018-12-26 17:02] MED LIST changes: -LACT10SO29 PO; +LAMO100T PO; -LAMO100T3 PO; +LAMO200T2 PO; -LAMO200T3 PO; -LITH300C PO; -QUET1TAB8 PO
[2018-12-26 18:21] LABS: BASO # 0.1 10^3/uL (0.0-0.2); BASO % 0.9 % (0.0-1.0); EOS # 0.2 10^3/uL (0.0-0.5); EOS % 1.8 % (0.0-3.0); HEMATOCRIT 46.1 % (36.0-47.0); HEMOGLOBIN 15.2 g/dl (12.0-15.5); LYMPH # 3.8 10^3/uL (1.5-5.0); MEAN CORPUSCULAR HEMOGLOBIN 31.4 pg (27.0-33.0); MEAN CORPUSCULAR VOLUME 95.2 fl (80.0-96.0); MONO # 0.7 10^3/uL (0.0-0.8); NEUTROPHILS # 6.7 10^3/uL (1.5-8.5); NEUTROPHILS % 57.5 % (36.0-66.0); PLATELET COUNT, AUTOMATED 289 10^3/uL (150-450); RED BLOOD COUNT 4.84 10^6/uL (4.00-5.40); WHITE BLOOD COUNT 11.6 10^3/uL (4.0-10.0)
[2018-12-26] MEDS ORDERED: NS 1,000 ML IV ONE (18:30)
[2018-12-26] MEDS ORDERED: KETOROLAC 30 MG/ML VIAL (J1885) IV ONE (18:30)
[2018-12-26 18:50] LABS: ALBUMIN 4.3 GM/DL (3.2-5.2); ALT/SGPT 26 U/L (12-78); AMYLASE 80 U/L (25-115); BILIRUBIN,DIRECT 0.1 MG/DL (0.0-0.2); BILIRUBIN,TOTAL 0.5 MG/DL (0.2-1.0); BLOOD UREA NITROGEN 9 MG/DL (7-18); CALCIUM LEVEL 8.9 MG/DL (8.5-10.1); CARBON DIOXIDE LEVEL 26 MEQ/L (21-32); CHLORIDE LEVEL 109 MEQ/L (98-107); GLOMERULAR FILTRATION RATE > 60.0 (>60); GLUCOSE, FASTING 84 MG/DL (70-100); LIPASE 123 U/L (73-393); POTASSIUM SERUM 4.1 MEQ/L (3.5-5.1); SODIUM LEVEL 139 MEQ/L (136-145); TOTAL PROTEIN 7.3 GM/DL (6.4-8.2)
[2018-12-26] MEDS ORDERED: ISOVUE-370 76% 100ML VIAL (Q9967) As Ordered ONE (18:52)
[2018-12-26] MEDS ORDERED: LITH300C PO (19:42)
[2018-12-26] MEDS ORDERED: QUET1TAB8 PO (19:42)
--- NOTE | 2018-12-26 19:43 | REPVR ---
PROCEDURE INFORMATION: Exam: CT Abdomen And Pelvis With Contrast Exam date and time: 12/26/2018 6:55 PM Clinical history: 28 years old, female; Abdominal pain; Localized; Right lower quadrant (rlq); Additional info: Rlq pain, PT tender TECHNIQUE: Imaging protocol: Computed tomography of the abdomen and pelvis with intravenous contrast. Radiation optimization: All CT scans at this facility use at least one of these dose optimization techniques: automated exposure control; mA and/or kV adjustment per patient size (includes targeted exams where dose is matched to clinical indication); or iterative reconstruction. Contrast material: ISOVUE 370; Contrast volume: 100 ml; Contrast route: IV; COMPARISON: CT ABD PELVIS W/O CONTRAST 05/29/2016 10:42 PM FINDINGS: Lungs: No suspicious mass or airspace process in the visualized lung bases. Liver: Liver appears normal with no focal abnormality. Gallbladder and bile ducts: Gallbladder is present and shows no evidence of gallstone. Pancreas: Pancreas appears normal. No focal mass or peripancreatic inflammation. Spleen: Spleen appears homogeneous without focal mass. Adrenals: Adrenal glands are normal in appearance. Kidneys and ureters: Kidneys appear normal, with no stone, solid mass or hydronephrosis. Stomach and bowel: No evidence of small bowel obstruction. Moderate pattern of colonic stool is present. Appendix: Normal caliber appendix is identified, with no adjacent inflammation. Intraperitoneal space: No pneumoperitoneum. Vasculature: Main portal and splenic veins enhance normally. No aortic aneurysm. Lymph nodes: No enlarged lymph nodes. Bladder: Urinary bladder appears normal. Reproductive: Involuting 2 cm right ovarian cyst is noted with adjacent small volume fluid. Bones/joints: Bony structures show no acute fracture or destructive process. Soft tissues: Unremarkable. IMPRESSION: 1. Probable involuting 2 cm right ovarian cyst. 2. Normal appendix. 3. Prominent right-sided colonic stool suggesting perhaps some element of constipation. No rectal fecal impaction Electronically signed by: Lico Kahn On 12/26/2018 19:43:19 PM
[2018-12-26] MEDS ORDERED: LACTULOSE 20 GM/30 ML SYRUP UD PO ONE (20:15)
[2018-12-26] MEDS ORDERED: NORCO 5/325MG TABLET (BULK FOR ED) PO ONE (20:15)
[2018-12-26] MEDS ORDERED: LACT10SO29 PO (20:19)
[2018-12-26 20:29] VITALS: BP 121/80
== END 2018-12-26 21:08 | disposition home or self-care (01) ==
LOC: M ED 17:02
DX: N83.291 Other ovarian cyst, right side (principal); K59.00 Constipation, unspecified; R10.31 Right lower quadrant pain; Z87.448 Personal history of other diseases of urinary system; Z79.899 Other long term (current) drug therapy; Z91.018 Allergy to other foods; Z91.011 Allergy to milk products; Z88.8 Allergy status to other drugs, medicaments and biological substances
CPT/HCPCS: 74177; 80048; 80076; 81001; 82150; 83690; 84702; 85025; 99284; J1885; Q9967

== ENCOUNTER → 2018-12-31 | Outpatient (CLI) | payer OTHER ==
[~2018-12-31] MED LIST changes: +LACT10SO29 PO; +LITH300C PO; +QUET1TAB8 PO
[2018-12-31 10:17] LABS: BASO # 0.1 10^3/uL (0.0-0.2); BASO % 0.6 % (0.0-1.0); EOS # 0.2 10^3/uL (0.0-0.5); EOS % 1.6 % (0.0-3.0); HEMATOCRIT 42.5 % (36.0-47.0); LYMPH # 2.7 10^3/uL (1.5-5.0); LYMPH % 28.3 % (24.0-44.0); MEAN CORPUSCULAR HEMOGLOBIN 31.3 pg (27.0-33.0); MEAN CORPUSCULAR HGB CONC 32.9 g/dl (32.0-36.5); MEAN CORPUSCULAR VOLUME 94.9 fl (80.0-96.0); MONO # 0.6 10^3/uL (0.0-0.8); MONO % 5.9 % (0.0-5.0); NEUTROPHILS % 63.1 % (36.0-66.0); PLATELET COUNT, AUTOMATED 287 10^3/uL (150-450); RED BLOOD COUNT 4.48 10^6/uL (4.00-5.40); WHITE BLOOD COUNT 9.5 10^3/uL (4.0-10.0)
[2018-12-31 10:47] LABS: ALBUMIN 4.1 GM/DL (3.2-5.2); ALT/SGPT 32 U/L (12-78); BILIRUBIN,TOTAL 0.6 MG/DL (0.2-1.0); BLOOD UREA NITROGEN 8 MG/DL (7-18); CARBON DIOXIDE LEVEL 24 MEQ/L (21-32); CHLORIDE LEVEL 110 MEQ/L (98-107); FREE T4 0.84 NG/DL (0.76-1.46); GLOMERULAR FILTRATION RATE > 60.0 (>60); GLUCOSE, FASTING 105 MG/DL (70-100); LITHIUM LEVEL 0.49 MEQ/L (0.60-1.20); POTASSIUM SERUM 3.8 MEQ/L (3.5-5.1); SODIUM LEVEL 141 MEQ/L (136-145)
== END ==
LOC: M LAB 09:41
PROVIDERS: ATTEND Psychiatry & Neurology Child & Adolescent Psychiatry
DX: F31.9 Bipolar disorder, unspecified (principal)

== ENCOUNTER → 2019-05-01 | Outpatient (CLI) | payer OTHER ==
[~2019-05-01] MED LIST changes: -LAMO100T PO; +LAMO100T3 PO; -LAMO200T2 PO; +LAMO200T3 PO; +QUET100T2 PO; -QUET1TAB8 PO
[2019-05-01 15:21] LABS: BASO # 0.1 10^3/uL (0.0-0.2); BASO % 0.7 % (0.0-1.0); EOS # 0.2 10^3/uL (0.0-0.5); EOS % 2.2 % (0.0-3.0); HEMATOCRIT 44.6 % (36.0-47.0); LYMPH # 2.7 10^3/uL (1.5-5.0); LYMPH % 35.6 % (24.0-44.0); MEAN CORPUSCULAR HEMOGLOBIN 32.3 pg (27.0-33.0); MEAN CORPUSCULAR HGB CONC 33.6 g/dl (32.0-36.5); MEAN CORPUSCULAR VOLUME 96.1 fl (80.0-96.0); MONO # 0.4 10^3/uL (0.0-0.8); MONO % 5.7 % (0.0-5.0); NEUTROPHILS # 4.2 10^3/uL (1.5-8.5); NEUTROPHILS % 55.3 % (36.0-66.0); PLATELET COUNT, AUTOMATED 265 10^3/uL (150-450); RED BLOOD COUNT 4.64 10^6/uL (4.00-5.40); WHITE BLOOD COUNT 7.6 10^3/uL (4.0-10.0)
[2019-05-01 16:00] LABS: ALBUMIN 4.2 GM/DL (3.2-5.2); ALT/SGPT 20 U/L (12-78); BILIRUBIN,TOTAL 0.3 MG/DL (0.2-1.0); BLOOD UREA NITROGEN 10 MG/DL (7-18); CALCIUM LEVEL 8.8 MG/DL (8.5-10.1); CARBON DIOXIDE LEVEL 29 MEQ/L (21-32); CHLORIDE LEVEL 108 MEQ/L (98-107); CREATININE FOR GFR 0.73 MG/DL (0.55-1.30); GLOMERULAR FILTRATION RATE > 60.0 (>60); GLUCOSE, FASTING 92 MG/DL (70-100); RHEUMATOID FACTOR QUANT < 10.0 IU/ML (<15.0); SODIUM LEVEL 140 MEQ/L (136-145); TOTAL PROTEIN 7.1 GM/DL (6.4-8.2); VALPROIC ACID (DEPAKOTE) 30.2 UG/ML (50.0-100.0)
[2019-05-01 16:01] LABS: VITAMIN B12 LEVEL 410 PG/ML (247-911)
[2019-05-01 16:02] LABS: FOLATE 16.5 NG/ML (>5.4)
[2019-05-01 16:46] LABS: ERYTHROCYTE SEDIMENTATION RATE 1 mm/hr (0-20)
== END ==
LOC: M LAB 14:43
PROVIDERS: ATTEND Psychiatry & Neurology Neurology
DX: R51 Headache (principal); R41.0 Disorientation, unspecified

== ENCOUNTER → 2019-06-15 | Outpatient (CLI) | payer OTHER | LOC: M LABSMTC 10:26 | PROVIDERS: ATTEND Family Medicine | DX: Z11.59 Encounter for screening for other viral diseases (principal); Z20.828 Contact with and (suspected) exposure to other viral communicable diseases ==

== ENCOUNTER → 2019-12-02 | Outpatient (CLI) | payer OTHER ==
[~2019-12-02] MED LIST changes: -LACT10SO29 PO; +LACT20EL PO
--- NOTE | 2019-12-02 10:22 | REPMRS ---
Patient History The patient states she had a clinical breast exam in 08/2019. Family history of breast cancer at age 55 in maternal grandmother, prostate cancer in paternal grandfather, ovarian cancer at age 40 and breast cancer at age 68 in paternal cousin. Took tamoxifen for 3 months. 3D TOMOSYNTHESIS WAS PERFORMED. [facility] lifetime risk for breast cancer is 14.0%. VOLPARA DENSITY C. Digital Woman Screen Mammo: December 02, 2019 - Exam #: [id number] Bilateral CC and MLO view(s) were taken. Technologist: Celia Lam, Technologist Prior study comparison: May 2018, bilateral digital mammo screening bilat, performed at [facility]. FINDINGS: The breast tissue is heterogeneously dense. This may lower the sensitivity of mammography. There has been no change in the appearance of the mammogram from the prior studies. There is a moderate amount of residual fibroglandular tissue which is fairly symmetric. There is no interval development of dominant mass, areas of architectural distortion, or clustered microcalcification typical of malignancy. Assessment: BI-RADS/ACR category 1 mammogram. Negative Mammogram. Recommendation Routine screening mammogram in 1 year (for women over age 40). This mammogram was interpreted with the aid of an FDA-approved computer-aided dectection system. Electronically Signed By: Curt Cook MD 12/02/19 0898
== END ==
LOC: M WHC 07:48
PROVIDERS: ATTEND Nurse Practitioner Women's Health
DX: Z12.31 Encounter for screening mammogram for malignant neoplasm of breast (principal)

== ENCOUNTER → 2020-12-09 | Outpatient (CLI) | payer OTHER ==
[~2020-12-09] MED LIST changes: -ARIP1TAB2 PO; +ARIP1TAB43 PO; +QUET50TA4 PO; -QUET5TAB PO
[2020-12-09 09:35] LABS: HEMATOCRIT 40.8 % (36.0-47.0); HEMOGLOBIN 13.8 g/dl (12.0-15.5); MEAN CORPUSCULAR HEMOGLOBIN 31.7 pg (27.0-33.0); MEAN CORPUSCULAR HGB CONC 33.8 g/dl (32.0-36.5); MEAN CORPUSCULAR VOLUME 93.6 fl (80.0-96.0); PLATELET COUNT, AUTOMATED 237 10^3/uL (150-450); RED BLOOD COUNT 4.36 10^6/uL (4.00-5.40); WHITE BLOOD COUNT 6.8 10^3/uL (4.0-10.0)
[2020-12-09 10:22] LABS: ALBUMIN 3.9 GM/DL (3.2-5.2); ALT/SGPT 15 U/L (12-78); BILIRUBIN,TOTAL 0.3 MG/DL (0.2-1.0); BLOOD UREA NITROGEN 10 MG/DL (7-18); CALCIUM LEVEL 8.8 MG/DL (8.5-10.1); CARBON DIOXIDE LEVEL 27 MEQ/L (21-32); CHLORIDE LEVEL 113 MEQ/L (98-107); CHOLESTEROL LEVEL 176 MG/DL (<200); CHOLESTEROL RISK RATIO 3.744 (<5); CREATININE FOR GFR 0.93 MG/DL (0.55-1.30); GLOMERULAR FILTRATION RATE > 60.0 (>60); GLUCOSE, FASTING 80 MG/DL (70-100); HDL CHOLESTEROL 47 MG/DL (>40); LDL CHOLESTEROL 107 MG/DL (<100); NON-HDL-C 129 MG/DL; POTASSIUM SERUM 4.2 MEQ/L (3.5-5.1); SODIUM LEVEL 144 MEQ/L (136-145); TOTAL PROTEIN 6.9 GM/DL (6.4-8.2); TRIGLYCERIDES LEVEL 112 MG/DL (<150)
[2020-12-09 10:23] LABS: TOTAL 25(OH) VITAMIN D 28.6 NG/ML (30.0-100.0)
== END ==
LOC: M LAB 08:46
PROVIDERS: ATTEND Nurse Practitioner Family
DX: Z13.0 Encounter for screening for diseases of the blood and blood-forming organs and certain disorders involving the immune mechanism (principal); Z13.29 Encounter for screening for other suspected endocrine disorder; Z13.228 Encounter for screening for other metabolic disorders; Z13.220 Encounter for screening for lipoid disorders; Z51.81 Encounter for therapeutic drug level monitoring; E55.9 Vitamin D deficiency, unspecified

== ENCOUNTER 2021-01-18 17:27 | Emergency (ER) | payer OTHER ==
[~2021-01-18] VITALS: Ht 162.6 cm; Wt 56.8 kg
--- OUTSIDE RECORDS SUMMARY | 2021-01-18 17:32 | CCD ---
Author Author [facility] Organization [facility] Address Unknown Phone Unavailable Care Team Providers Care Manager Psychiatry Name Role Phone Miya Hayden Unavailable PROBLEMS Type Condition ICD9-CM Code AHD09-YT Code Onset Dates Condition S tatus W/U Status Risk SNOMED Code Notes Problem Cigarette nicotine dependence F17.210 Active confir med 145341402 Problem History of psychiatric treatment Z92.89 Active confirmed 684582952 Problem Memory changes R41.3 Active confirmed 69369 7006 Problem Nonintractable episodic headache, unspecified headache typ e R51 Active confirmed 56298777 Problem Abnormal blood level of copper R79.0 Active confir med 935415826 Problem Pain of left breast N64.4 Active confirmed 49572006544322956 Problem Bipolar affective disorder, remission status unspecified F31.9 Active confirmed 97140895 Problem Screening for lipid disorders Z13.220 Active confir med 147940355 Problem Hypertriglyceridemia E78.1 Active confirmed 527494356 Problem Bilateral carpal tunnel syndrome G56.03 Active confirmed 56965681952776848 Problem Scabies B86 Active confirmed 036877408 Problem Vitamin D deficiency E55.9 Active confirmed 48918005 Problem Rash R21 Active confirmed 004430162 Problem Status post partial hysterectomy Z90.711 Active confirmed 202952449 Problem Other migraine without status migrainosus, intractable G43.819 Active confirmed 470672434 Problem History of partial hysterectomy Z90.711 Active confirmed 515433453 Problem Tobacco dependence F17.200 Active confirmed 72389879 Problem Bruising T14.8XXA Active confirmed 915607285 ALLERGIES Allergen (clinical drug ingredient) Drug/Non Drug Allergy do cumented on EMR Reaction Allergy Type Onset Date Status phegran swelling Non Drug Allergy Active reglan swelling Non Drug Allergy Active ENCOUNTERS from 1988 to 2020-12-07 Encounter Location Date Provider Diagnosis [address] [address] Nov, Miya Hayden Bipolar affective disorder, remission status unspecified F31.9 ; Annual physical exam Z00.00 ; Other migraine without status migrainosus, intractable G43.819 ; Tobacco abuse Z72.0 ; Tobacco dependence F 17.200 ; Vitamin D deficiency E55.9 ; Screening for lipid disorders Z13.220 ; Encounter for screening for diseases of the blood and blood-forming organs and certain disorders involving the immune mechanism Z13.0 ; Screening for thyroid disorder Z13.29 ; Screening for metabolic disorder Z13.228 ; Localized infection of skin L08.9 and Medication monitoring encounter Z51.81 IMMUNIZATIONS Vaccine Route Administration Date Status TDAP 7yrs + Vaccine - Boostrix Unknown May 11, 2018 A dministered SOCIAL HISTORY Tobacco Use: Social History Observation Description Date Details (start date - stop date) Current Smoker Sex Assigned At : Social History Observation Description Sex Assigned At Female Tobacco Use/Smoking Question Answer Notes Are you a current smoker Are you interested in quitting? Thinking about quitting How many cigarettes a day do you smoke? 11-20 How soon after you wake up do you smoke your first cigarette ? after 60 minutes How often do you smoke cigarettes? every day REASON FOR REFERRAL No Information VITAL SIGNS Height 62 in Nov, Weight 126 lbs Nov, BMI 23.04 kg/m2 Nov, Temperature 98.0 degrees Fahrenheit Nov, Heart Rate 106 /min Nov, Respiratory Rate 18 /min Nov, Oximetry 98 % Nov, Blood pressure systolic 110 mmHg Nov, Blood pressure diastolic 68 mmHg Nov, MEDICATIONS Medication SIG (Take, Route, Frequency, Duration) Notes Start Da te End Date Status SEROquel 200 MG 1 tablet Orally Once a day Active lamoTRIgine 150 MG 2 tablets Orally Once a day Active Mupirocin 2 % 1 application Externally Three times a day for 1 0 day(s) Nov, Active Gabapentin 100 MG 2 tablets Orally twivce daily 300mg at night time Active Nicorette 2 MG 1 lozenge as needed Mouth/Throat 10 time(s) a da y for 14 days Active Tamoxifen Citrate 10 MG 1 tablet Orally Once a day Active Drisdol 30827 UNIT 1 capsule Orally once per week for 90 days Vi tamin D 2 Jun, Not-Taking Vraylar 1.5 MG 1 capsule Orally for 30 day(s) Active PROCEDURES No Information RESULTS No Results REASON FOR VISIT annual MEDICAL (GENERAL) HISTORY Type Description Date Medical History Anxiety/Depression Medical History Bipolar Disorder- f/u with psychiatry Medical History Migraines Surgical History Tonsilectomy Surgical History LEEP Surgical History X1 Surgical History partial hysterectomy- still has ovaries 01/01/2018 Hospitalization History child Goals Section No Information Health Concerns No Information MEDICAL EQUIPMENT No Information MENTAL STATUS No Information FUNCTIONAL STATUS No Information ASSESSMENTS Encounter Date Diagnosis Assessment Notes Treatment Notes Treatm ent Clinical Notes Nov, Bipolar affective disorder, remission status unspecified (ICD-10 - F31.9) Continue current medication regimen. Follow up with psychiatry as scheduled once per month. Nov, Annual physical exam (ICD-10 - Z00.00) - Follow up yearly for annual PE - Follow up as directed for routine condition monitoring - Follow up as needed for acute injury/illness/questions/concerns Health Maintenance: - Ensure diet high in fruits, vegetables, lean protein - Moderate alcohol, caffiene - Avoid tobacco - Obtain at least 150 mins of heart raising physical activity daily - Wear seatbelt - Use CO and smoke detectors in home Screenings: - Start colonoscopy at age 50 unless otherwise directed - Obtain yearly fasting labs - Start yearly mammograms at age 40 unless otherwise directed - Obtain yearly pelvic exams and every 3 years pap smear starting at age 21 unless otherwise directed Nov, Other migraine without statu s migrainosus, intractable (ICD-10 - G43.819) Continue taking same medication regimen. Nov, Tobacco abuse (ICD-10 - Z72.0) Spent approx 3 minutes discussing smoking cessation with patient. Praised patient for continued cutting back on smoking. Discussed methods for replacing habit including activities to keep mouth/brain/hand occupied like drawing, sucking on sugar free hard candies, exercise. Nov, Tobacco dependence (ICD-10 - F17.200) same as above Nov, Vitamin D deficiency (ICD-10 - E55.9) Pending labs. Nov, Screening for lipid disorders (ICD-10 - Z13.220) Things that you can do at home to help control cholesterol: - Decrease unhealthy fats (prasad, butter, meat) - Increase activity - Lose weight. Fasting labs have been ordered. 1. Please do not eat or drink anything (other than PLAIN water) for at least 8 hours (preferably 12 hours). Usually the easiest thing to do is do not eat after dinner and have labs drawn the next day prior to coffee and breakfast. 2. The lab opens at 7 am daily, you do not need an appointment. 3. The orders will be sent to the hospital electronically, you will not need to remember to bring them with you. Nov, Encounter for screening for diseases of the blood and blood-forming organs and certain disorders involving the immune mechanism (ICD-10 - Z13.0) Pending labs. Nov, Screening for thyroid disorder (ICD-10 - Z13.29) Pending labs, Nov, Screening for metabolic disorder (ICD-10 - Z13.2 28) as above Nov, Localized infection of skin (ICD-10 - L08.9) recommend topical ABX therapy if no improvement in 3-5 days call office for oral ABX Nov, Medication monitoring encounter (ICD-10 - Z51.81 ) pending labs Nov, Other All questions and concerns addressed, patient understanding and agreeable to plan. Patient encouraged to follow up at the clinic for any additional or new questions or concerns. Time spent includes face to face time with patient and review of any pertinent laboratory results, consult documentation/hospital notes and diagnostic imaging. Time spent: 30 mins Keri Meyer, scribing the following service on behalf of Miya Hayden NP on 12-06-2020 PLAN OF TREATMENT Medication Medication Name Sig Start Date Stop Date Mupirocin 2 % 1 application Externally Three times a d ay for 10 day(s) Nov, Nicorette 2 MG 1 lozenge as needed Mouth/Throat 10 time(s) a da y for 14 days Treatment Notes Assessment Notes Clinical Notes Bipolar affective disorder, remission status unspecifi ed Continue current medication regimen. Follow up with psychiatry as scheduled once per month. Annual physical exam - Follow up yearly for annua l PE- Follow up as directed for routine condition monitoring- Follow up as needed for acute injury/illness/questions/concernsHealth Maintenance:- Ensure diet high in fruit s, vegetables, lean protein- Moderate alcohol, caffiene- Avoid tobacco- Obtain at least 150 mins of heart raising physical activity daily- Wear seatbelt- Use CO and smoke detectors in homeScreenings:- Start colonoscopy at age 50 unless otherwise directed- Obtain yearly fasting labs- Start yearly mammograms at age 40 unless otherwise directed- Obtain yearly pelvic exams and every 3 years pap smear starting at age 21 unless otherwise directed Other migraine without status migrainosus, intractable Continue taking same medication regimen. Tobacco abuse Spent approx 3 minutes discu ssing smoking cessation with patient. Praised patient for continued cutting back on smoking. Discussed methods for replacing habit including activities to keep mouth/brain/hand occupied like drawing, sucking on sugar free hard candies, exercise. Tobacco dependence same as above Vitamin D deficiency Pending labs. Screening for lipid disorders Things that you can do a t home to help control cholesterol:- Decrease unhealthy fats (prasad, butter, meat)- Increase activity- Lose weight.Fasting labs have been ordered.1. Please do not eat or drink an ything (other than PLAIN water) for at least 8 hours (preferably 12 hours). Usually the easiest thing to do is do not eat after dinner and have labs drawn the next day prior to coffee and breakfast.2. The lab opens at 7 am daily, you do not need an appointment.3. The orders will be sent to the hospital electronically, you will not need to remember to bring them with you. Encounter for screening for diseases of the blood and blood-forming organs and certain disorders involving the immune mechanism Pending labs. Screening for thyroid disorder Pending labs, Screening for metabolic disorder as above Medication monitoring encounter pending labs Localized infection of skin recommend topical ABX ther apyif no improvement in 3- 5 days call office for oral ABX Treatment Notes Test Name Order Date COMPLETE METABOLIC PROLFILE 2020-12-06 VITAMIN D, 25-HYDROXY 2020-12-06 TSH 2020-12-06 LIPID PROFILE 2020-12-06 CBC 2020-12-06 LAMOTRIGINE, SERUM 2020-12-06 Next Appt Details prn, 1 Year Reason: Insurance Providers Payer Name Payer Address Payer Phone Insured Name Patient Relati onship to Insured Coverage Start Date Coverage End Date [facility] [employer] MEDICAID [address] [place] [address] Kathy Lemons self
--- OUTSIDE RECORDS SUMMARY | 2021-01-18 17:32 | CCD ---
Author Author Steve Kathy Hernandezry Organization Unknown Address [address] [address] Phone Care Team Providers Care Crime Laboratory Analyst Name Role Phone Woodrow Wilson PCP Allergies, Adverse Reactions, Alerts No Data in Section Problem List Concept Problem Description Status Start Date Created Date Resolv ed Date Snomed Code F41.9 Unspecified Anxiety Disorder Active 11/17/2020 F31.9 Unspecified Bipolar and Related Disorder Active 11/17/2020 Medications Rx Norm Medication Route Route Concept Start Date Stop Date Dosage Jono quency Duration Formula Strength Dosage Form Dosage Form Code Dosage Description Medication Id Account Npid Author First Name Author Last Name Taxonomy Code Taxonomy Desc Phone Number [phone] lamotrigine 08/09/2020 90 200 mg tablet [phone] Woodrow Steve [id number] Nurse Practitioner [phone] [id number] quetiapine 08/18/2020 30 100 mg tablet 50142 [phone] Woodrow Steve [id number] Nurse Practitioner [phone] Social History Social History Element Description Concept Effective Date Smoking Status Current every day smoker [id number] 6194133 9 Immunizations No Data in Section Vital Signs No Data in Section Procedures Date Concept Id Description Targeted Site Concept Targeted Site Concept Type 11/17/2020 80589-55 [facility] Telemed E/M Lvl 3--Est pt CPT 11/17/2020 98531-77 Telemed A/O 30" CPT Patient has no history of implantable de vices Encounters Encounter Start Date End Date Encounter Type Description Diagnosis Di agnosis Desc Location Author First Name Author Last Name Npid Taxonomy Cod e Taxonomy Desc Phone Number Location Addr1 Location Addr2 Location [facility] Location Sta Location Zip [id number] 11/17/2020 11/17/2020 69152-98 [facility] Telemed E/M Lvl 3--Est p t F41.9 Anxiety Disorder, Unspecified [facility] Steve Troy [phone] [id number] Nurse Practitioner [phone] [address] [address] Plan of Treatment No Data in Section Lab Results No Data in Section Instructions No Data in Section Functional Cognitive Status No Data in Section Insurance Providers Insurance Id Policy Effective Date Policy Thru Date Company N mel [id number] 2020 [employer] [place] [employer]
--- OUTSIDE RECORDS SUMMARY | 2021-01-18 17:32 | CCD ---
Author Author Kathy Cruz Organization Unknown Address [address] [address] Phone Care Team Providers Care Nuclear Chemistry Technician Name Role Phone Moisés Cruz PCP Allergies, Adverse Reactions, Alerts No Data in Section Problem List Concept Problem Description Status Start Date Created Date Resolv ed Date Snomed Code F41.9 Unspecified Anxiety Disorder Active 12/23/2020 F31.9 Unspecified Bipolar and Related Disorder Active 12/23/2020 Medications Rx Norm Medication Route Route Concept Start Date Stop Date Dosage Jono quency Duration Formula Strength Dosage Form Dosage Form Code Dosage Description Medication Id Account Npid Author First Name Author Last Name Taxonomy Code Taxonomy Desc Phone Number [phone] lamotrigine 08/09/2020 90 200 mg tablet [phone] Woodrow Wilson [id number] Nurse Practitioner [phone] [id number] gabapentin 11/18/2020 100 mg capsule 04371 [id number] [phone] Woodrow Wilson [id number] Nurse Practitioner [phone] quetiapine 12/09/2020 90 200 mg tablet 98199 [phone] Woodrow Wilson [id number] Nurse Practitioner [phone] [id number] gabapentin by mouth [id number] 11/17/2020 01/16/2021 at bedtime 30 300 mg capsule 40866 [id number] [id number] Woodrow Wilson [id number] Nurse Brandi carcamo [phone] [id number] Vraylar by mouth [id number] 11/18/2020 02/14/2021 once a day 30 1 .5 mg capsule 39007 [id number] [id number] Woodrow Wilson [id number] Nurse Brandi carcamo [phone] Social History Social History Element Description Concept Effective Date Smoking Status Current every day smoker [id number] 3923417 3 Immunizations No Data in Section Vital Signs No Data in Section Procedures Date Concept Id Description Targeted Site Concept Targeted Site Concept Type 12/21/2020 51592 Extended Individual Psychotherapy - 45 min CPT Patient has no history of implantable de vices Encounters Encounter Start Date End Date Encounter Type Description Diagnosis Di agnosis Desc Location Author First Name Author Last Name Npid Taxonomy Cod e Taxonomy Desc Phone Number Location Addr1 Location Addr2 Location [facility] Location [facility] Location [facility] [id number] 12/21/2020 12/21/2020 20455 Extended Individual Psych otherapy - 45 min F41.9 Anxiety Disorder, Unspecified [facility] [phone] [id number] Instructor Pilot [phone] [address] [address] Plan of Treatment No Data in Section Lab Results No Data in Section Instructions No Data in Section Insurance Providers Insurance Id Policy Effective Date Policy Thru Date Company N mel [id number] 2020 [employer] [place] [employer]
--- OUTSIDE RECORDS SUMMARY | 2021-01-18 17:32 | CCD ---
Author Author [facility] Organization [facility] Address Unknown Phone Unavailable Care Team Providers Care Distribution Analyst Name Role Phone Lolis, Hermila Fernandez EDGER FEEDER-C Unavailable Unavailabl e [facility], [facility] Rebecca EDGER FEEDER-C Unavailable Unavailabl e L[facility], [facility] Rebecca CRUZP-C Unavailable Unavailabl e [facility], [facility] CRUZP-C Unavailable Unavailabl e Lolis, [facility] Rebecca CRUZP-C Unavailable Unavailabl e Lolis, [facility] Rebecca CRUZP-C Unavailable Unavailabl e Lolis, [facility] Skinny CRUZP-C Unavailable Unavailabl e Lolis, [facility] Rebecca EDGER FEEDER-C Unavailable Unavailabl e Lolis, [facility] Rebecca EDGER FEEDER-C Unavailable Unavailabl e Lolis, [facility] Rebecca EDGER FEEDER-C Unavailable Unavailabl e Lolis, [facility] CRUZP-C Unavailable Unavailabl e Lolis, [facility] Fernandez EDGER FEEDER-C Unavailable Unavailabl e Lolis, [facility] Fernandez EDGER FEEDER-C Unavailable Unavailabl e Lolis, [facility] Skinny CRUZP-C Unavailable Unavailabl e Lolis, [facility] W Rebecca EDGER FEEDER-C Unavailable Unavailabl e Lolis, Hermila Ninae EDGER FEEDER-C Unavailable Unavailabl e Lolis, Hermila Fernandez EDGER FEEDER-C Unavailable Unavailabl e Lolis, Hermila Ninae EDGER FEEDER-C Unavailable Unavailabl e Lolis, Hermila Caroyce EDGER FEEDER-C Unavailable Unavailabl e Lolis, Hermila Caroyce EDGER FEEDER-C Unavailable Unavailabl e Lolis, Hermila Caroyce EDGER FEEDER-C Unavailable Unavailabl e Lolis, Hermila Caroyce EDGER FEEDER-C Unavailable Unavailabl e Lolis, Hermila Caroyce EDGER FEEDER-C Unavailable Unavailabl e Lolis, Hermila Caroyce EDGER FEEDER-C Unavailable Unavailabl e Lolis, Hermila Caroyce EDGER FEEDER-C Unavailable Unavailabl e Lolis, Hermila Ninae EDGER FEEDER-C Unavailable Unavailabl e Lolis, Hermila Ninae EDGER FEEDER-C Unavailable Unavailabl e Lolis, Hermila Caroyce EDGER FEEDER-C Unavailable Unavailabl e Lolis, Hermila Fernandez EDGER FEEDER-C Unavailable Unavailabl e Lolis, Hermila Fernandez EDGER FEEDER-C Unavailable Unavailabl e Lolis, Hermila Ninae EDGER FEEDER-C Unavailable Unavailabl e Lolis, Hermila Caroyce EDGER FEEDER-C Unavailable Unavailabl e Hernesto BOWENS MD Unavailable Unavailable Hernesto BOWENS MD Unavailable Unavailable Hernesto BOWENS MD Unavailable Unavailable Hernesto BOWENS MD Unavailable Unavailable Hernesto BOWENS MD Unavailable Unavailable Hernesto BOWENS MD Unavailable Unavailable Hernesto BOWENS MD Unavailable Unavailable Hernesto BOWENS MD Unavailable Unavailable Hernesto BOWENS MD Unavailable Unavailable Hernesto BOWENS MD Unavailable Unavailable Hernesto BOWENS MD Unavailable Unavailable Hernesto BOWENS MD Unavailable Unavailable Hernesto BOWENS MD Unavailable Unavailable Hernesto BOWENS MD Unavailable Unavailable Hernesto BOWENS MD Unavailable Unavailable Hernesto BOWENS MD Unavailable Unavailable Hernesto BOWENS MD Unavailable Unavailable Ryan Wilson DEPUTY K 9 Unavailable Unavailable Ryan Wilson DEPUTY K 9 Unavailable Unavailable Ryan Wilson DEPUTY K 9 [facility] Unavailable Unavailable Karly Jaramillo MD Unavailable Unavailable Clint, Karly Wooten MD Unavailable Unavailable Clint, Karly Wooten MD Unavailable Unavailable Clint, Karly Wooten MD Unavailable Unavailable Clint, Karly Wooten MD Unavailable Unavailable Clint, Karly Wooten MD Unavailable Unavailable Clint, Karly Wooten MD Unavailable Unavailable Clint, Karly Wooten MD Unavailable Unavailable Clint, Karly Wooten MD Unavailable Unavailable Clint, Karly Wooten MD Unavailable Unavailable Clint, Karly Wooten MD Unavailable Unavailable Clint, Karly Wooten MD Unavailable Unavailable Clint, Karly Wooten MD Unavailable Unavailable Clint, Karly Wooten MD Unavailable Unavailable Clint, Karly Wooten MD Unavailable Unavailable Clint, Karly Wooten MD Unavailable Unavailable Clint, Karly Wooten MD Unavailable Unavailable Clint, Karly Wooten MD Unavailable Unavailable Clint, Karly Wooten MD Unavailable Unavailable Clint, Karly Wooten MD Unavailable Unavailable Clint, Karly Wooten MD Unavailable Unavailable Clint, Karly Wooten MD Unavailable Unavailable Clint, Karly Wooten MD Unavailable Unavailable Clint, Karly Wooten MD Unavailable Unavailable Clint, Karly Wooten MD Unavailable Unavailable Clint, Karly Wooten MD Unavailable Unavailable Clint, Karly Wooten MD Unavailable Unavailable Clint, Karly Wooten MD Unavailable Unavailable Clint, Karly Wooten MD Unavailable Unavailable Clint, Karly Wooten MD Unavailable Unavailable Clint, Karly Wooten MD Unavailable Unavailable Clint, Karly Wooten MD Unavailable Unavailable Clint, Karly Wooten MD Unavailable Unavailable Clint, Karly Wooten MD Unavailable Unavailable Clint, Karly Wooten MD Unavailable Unavailable Clint, Karly Wooten MD Unavailable Unavailable Clint, Karly Wooten MD Unavailable Unavailable Clint, Karly Wooten MD Unavailable Unavailable Clint, Karly oWoten MD Unavailable Unavailable Clint, Karly Wooten MD Unavailable Unavailable Clint, Karly Wooten MD Unavailable Unavailable Clint, Karly Wooten MD Unavailable Unavailable Clint, Karly Wooten MD Unavailable Unavailable Clint, Karly Wooten MD Unavailable Unavailable Clint, Karly Wooten MD Unavailable Unavailable Clint, Karly Wooten MD Unavailable Unavailable Clint, Karly Wooten MD Unavailable Unavailable Clint, Karly Wooten MD Unavailable Unavailable Clint, Karly Wooten MD Unavailable Unavailable Clint, Karly Wooten MD Unavailable Unavailable Clint, Karly Wooten MD Unavailable Unavailable Clint, Karly Wooten MD Unavailable Unavailable Clint, Karly Wooten MD Unavailable Unavailable Clint, Karly Wooten MD Unavailable Unavailable Clint, Karly Wooten MD Unavailable Unavailable Clint, Karly Wooten MD Unavailable Unavailable Clint, Karly Wooten MD Unavailable Unavailable Clint, Karly Wooten MD Unavailable Unavailable Clint, Karly Wooten MD Unavailable Unavailable Clint, Karly Wooten MD Unavailable Unavailable Clint, Karly Wooten MD Unavailable Unavailable Clint, Karly Wooten MD Unavailable Unavailable Clint, Karly Wooten MD Unavailable Unavailable Clint, Karly Wooten MD Unavailable Unavailable Clint, Karly Wooten MD Unavailable Unavailable Clint, Karly Wooten MD Unavailable Unavailable Clint, Karly Wooten MD Unavailable Unavailable Clint, Karly Wooten MD Unavailable Unavailable Clint, Karly Wooten MD Unavailable Unavailable Clint, Karly Wooten MD Unavailable Unavailable Clint, Karly Wooten MD Unavailable Unavailable Clint, Karly Wooten MD Unavailable Unavailable Moisés Cruz Unavailable Clark Cruzto Unavailable Bailey, A Lisa PA Unavailable Unavailable Bailey, A Lisa PA Unavailable Unavailable Bailey, A Lsia PA Unavailable Unavailable Bailey, A Lisa PA Unavailable Unavailable Bailey, A Lisa PA Unavailable Unavailable Bailey, A Lisa PA Unavailable Unavailable Bailey, A Lisa PA Unavailable Unavailable Bailey, A Lisa PA Unavailable Unavailable Bailey, A Lisa PA Unavailable Unavailable Bailey, A Lisa PA Unavailable Unavailable Bailey, A Lisa PA Unavailable Unavailable Bailey, A Lisa PA Unavailable Unavailable Bailey, A Lisa PA Unavailable Unavailable Bailey, A Lisa PA Unavailable Unavailable Bailey, A Lisa PA Unavailable Unavailable Bailey, A Lisa PA Unavailable Unavailable Bailey, A Lisa PA Unavailable Unavailable Bailey, A Lisa PA Unavailable Unavailable Bailey, A Lisa PA Unavailable Unavailable Bailey, A Lisa PA Unavailable Unavailable Bailey, A Lisa PA Unavailable Unavailable Bailey, A Lisa PA Unavailable Unavailable Bailey, A Lisa PA Unavailable Unavailable Bailey, A Lisa PA Unavailable Unavailable Bailey, A Lisa PA Unavailable Unavailable Bailey, A Lisa PA Unavailable Unavailable Bailey, A Lisa PA Unavailable Unavailable Bailey, A Lisa PA Unavailable Unavailable Bailey, A Lisa PA Unavailable Unavailable Bailey, A Lisa PA Unavailable Unavailable Bailey, A Lisa PA Unavailable Unavailable Bailey, A Lisa PA Unavailable Unavailable Bailey, A Lisa PA Unavailable Unavailable Bailey, A Lisa PA Unavailable Unavailable Bailey, A Lisa PA Unavailable Unavailable Bailey, A Lisa PA Unavailable Unavailable Bailey, A Lisa PA Unavailable Unavailable Bailey, A Lisa PA Unavailable Unavailable Bailey, A Lisa PA Unavailable Unavailable Bailey, A Lisa PA Unavailable Unavailable Bailey, A Lisa PA Unavailable Unavailable Bailey, A Lisa PA Unavailable Unavailable GOMES, MONIQUE HALEY RPA-C Unavailable Unavailable GOMES, MONIQUE HALEY RPA-C Unavailable Unavailable GOMES, MONIQUE HALEY RPA-C Unavailable Unavailable GOMES, MONIQUE HALEY RPA-C Unavailable Unavailable GOMES, MONIQUE HALEY RPA-C Unavailable Unavailable GOMES, MONIQUE HALEY RPA-C Unavailable Unavailable GOMES, MONIQUE HALEY RPA-C Unavailable Unavailable GOMES, MONIQUE HALEY RPA-C Unavailable Unavailable GOMES, MONIQUE HALEY RPA-C Unavailable Unavailable GOMES, MONIQUE HALEY RPA-C Unavailable Unavailable GOMES, MONIQUE HALEY RPA-C Unavailable Unavailable GOMES, MONIQUE HALEY RPA-C Unavailable Unavailable GOMES, MONIQUE HALEY RPA-C Unavailable Unavailable GOMES, MONIQUE HALEY RPA-C Unavailable Unavailable GOMES, MONIQUE HALEY RPA-C Unavailable Unavailable GOMES, MONIQUE HALEY RPA-C Unavailable Unavailable GOMES, MONIQUE HALEY RPA-C Unavailable Unavailable GOMES, MONIQUE HALEY RPA-C Unavailable Unavailable GOMES, MONIQUE HALEY RPA-C Unavailable Unavailable GOMES, MONIQUE HALEY RPA-C Unavailable Unavailable GOMES, MONIQUE HALEY RPA-C Unavailable Unavailable GOMES, MONIQUE HALEY RPA-C Unavailable Unavailable GOMES, MONIQUE HALEY RPA-C Unavailable Unavailable GOMES, MONIQUE HALEY RPA-C Unavailable Unavailable GOMES, MONIQUE HALEY RPA-C Unavailable Unavailable GOMES, MONIQUE HALEY RPA-C Unavailable Unavailable GOMES, MONIQUE HALEY RPA-C Unavailable Unavailable GOMES, MONIQUE HALEY RPA-C Unavailable Unavailable GOMES, MONIQUE HALEY RPA-C Unavailable Unavailable GOMES, MONIQUE HALEY RPA-C Unavailable Unavailable GOMES, MONIQUE HALEY RPA-C Unavailable Unavailable GOMES, MONIQUE HALEY RPA-C Unavailable Unavailable GOMES, MONIQEU HALEY RPA-C Unavailable Unavailable GOMES, MONIQUE HALEY RPA-C Unavailable Unavailable GOMES, MONIQUE HALEY RPA-C Unavailable Unavailable GOMES, MONIQUE HALEY RPA-C Unavailable Unavailable GOMES, MONIQUE HALEY RPA-C Unavailable Unavailable GOMES, MONIQUE HALEY RPA-C Unavailable Unavailable GOMES, MONIQUE HALEY RPA-C Unavailable Unavailable GOMES, MONIQUE HALEY RPA-C Unavailable Unavailable GOMES, MONIQUE HALEY RPA-C Unavailable Unavailable GOMES, MONIQUE HALEY RPA-C Unavailable Unavailable GOMES, MONIQUE HALEY RPA-C Unavailable Unavailable [place], Lisa Unavailable Lolis, Hermila Babb Rebecca EDGER FEEDER-C Unavailable Unavailabl e Lolis, Hermila Babb Rebecca EDGER FEEDER-C Unavailable Unavailabl e Lolis, Hermila Babb Rebecca EDGER FEEDER-C Unavailable Unavailabl e Lolis, Hermila Babb Rebecca EDGER FEEDER-C Unavailable Unavailabl e Lolis, Hermila Babb Rebecca EDGER FEEDER-C Unavailable Unavailabl e Lolis, Hermila W Rebecca EDGER FEEDER-C Unavailable Unavailabl e Lolis, Hermila W Rebecca EDGER FEEDER-C Unavailable Unavailabl e Lolis, Hermila Babb Rebecca EDGER FEEDER-C Unavailable Unavailabl e Lolis, Hermila Babb Rebecca EDGER FEEDER-C Unavailable Unavailabl e Lolis, Hermila W Rebecca EDGER FEEDER-C Unavailable Unavailabl e Lolis, Hermila W Rebecca EDGER FEEDER-C Unavailable Unavailabl e Lolis, Hermila W Rebecca EDGER FEEDER-C Unavailable Unavailabl e Lolis, Hermila W Rebecca EDGER FEEDER-C Unavailable Unavailabl e Lolis, Hermila W Rebecca EDGER FEEDER-C Unavailable Unavailabl e Lolis, Hermila Babb Rebecca EDGER FEEDER-C Unavailable Unavailabl e Lolis, Hermila W Rebecca EDGER FEEDER-C Unavailable Unavailabl e Lolis, Hermila W Rebecca EDGER FEEDER-C Unavailable Unavailabl e Lolis, Hermila Babb Rebecca EDGER FEEDER-C Unavailable Unavailabl e Lolis, Hermila Babb Rebecca EDGER FEEDER-C Unavailable Unavailabl e Lolis, Hermila Babb Rebecca EDGER FEEDER-C Unavailable Unavailabl e Lolis, Hermila Babb Rebecca EDGER FEEDER-C Unavailable Unavailabl e Lolis, Hermila Caroyce EDGER FEEDER-C Unavailable Unavailabl e Lolis, Hermila Caroyce EDGER FEEDER-C Unavailable Unavailabl e Lolis, Hermila W Rebecca EDGER FEEDER-C Unavailable Unavailabl e Lolis, Hermila W Rebecca EDGER FEEDER-C Unavailable Unavailabl e Lolis, Hermila W Rebecca EDGER FEEDER-C Unavailable Unavailabl e Lolis, Hermila Babb Rebecca EDGER FEEDER-C Unavailable Unavailabl e Lolis, Hermila Caroyce EDGER FEEDER-C Unavailable Unavailabl e Lolis, Hermila Caroyce EDGER FEEDER-C Unavailable Unavailabl e Lolis, Hermila Caroyce EDGER FEEDER-C Unavailable Unavailabl e Lolis, Hermila Caroyce EDGER FEEDER-C Unavailable Unavailabl e Lolis, Hermila Babb Rebecca EDGER FEEDER-C Unavailable Unavailabl e Jackelyn, A Miya EDGER FEEDER Unavailable Unavailable Jackelyn, A Miya EDGER FEEDER Unavailable Unavailable Jackelyn, A Miya EDGER FEEDER Unavailable Unavailable Jackelyn, A Miya EDGER FEEDER Unavailable Unavailable Jackelyn, A Miya EDGER FEEDER Unavailable Unavailable Jackelyn, A Miya EDGER FEEDER Unavailable Unavailable Jackelyn, A Miya EDGER FEEDER Unavailable Unavailable Jackelyn, A Miya EDGER FEEDER Unavailable Unavailable Jackelyn, A Imya EDGER FEEDER Unavailable Unavailable Jackelyn, A Miya EDGER FEEDER Unavailable Unavailable Jackelyn, A Miya EDGER FEEDER Unavailable Unavailable Jackelyn, A Miya EDGER FEEDER Unavailable Unavailable Jackelyn, A Miya EDGER FEEDER Unavailable Unavailable Jackelyn, A Miya EDGER FEEDER Unavailable Unavailable Jackelyn, A Miya EDGER FEEDER Unavailable Unavailable Jackelyn, A Miya EDGER FEEDER Unavailable Unavailable Jackelyn, A Miya EDGER FEEDER Unavailable Unavailable Jackelyn, A Miya EDGER FEEDER Unavailable Unavailable Jackelyn, A Miya EDGER FEEDER Unavailable Unavailable Jackelyn, A Miya EDGER FEEDER Unavailable Unavailable Jackelyn, A Miya EDGER FEEDER Unavailable Unavailable Jackelyn, A Miya EDGER FEEDER Unavailable Unavailable Jackelyn, A Miya EDGER FEEDER Unavailable Unavailable Jackelyn, A Miya EDGER FEEDER Unavailable Unavailable Jackelyn, A Miya EDGER FEEDER Unavailable Unavailable Jackelyn, A Miya EDGER FEEDER Unavailable Unavailable Jackelyn, A Miya EDGER FEEDER Unavailable Unavailable Jackelyn, A Miya EDGER FEEDER Unavailable Unavailable Jackelyn, A Miya EDGER FEEDER Unavailable Unavailable Jackelyn, A Miya EDGER FEEDER Unavailable Unavailable Jackelyn, A Miya EDGER FEEDER Unavailable Unavailable Jackelyn, A Miya EDGER FEEDER Unavailable Unavailable Jackelyn, A Miya EDGER FEEDER Unavailable Unavailable Jackelyn, A Miya EDGER FEEDER Unavailable Unavailable Jackelyn, A Miya EDGER FEEDER Unavailable Unavailable Jackelyn, A Miya EDGER FEEDER Unavailable Unavailable Jackelyn, A Miya EDGER FEEDER Unavailable Unavailable Jackelyn, A Miya EDGER FEEDER Unavailable Unavailable Jackelyn, A Miya EDGER FEEDER Unavailable Unavailable Jackelyn, A Miya EDGER FEEDER Unavailable Unavailable Jackelyn, A Miya EDGER FEEDER Unavailable Unavailable Jackelyn, A Miya EDGER FEEDER Unavailable Unavailable Jackelyn, A Miya EDGER FEEDER Unavailable Unavailable Jackelyn, A Miya EDGER FEEDER Unavailable Unavailable Jackelyn, A Miya EDGER FEEDER Unavailable Unavailable Jackelyn, A Miya EDGER FEEDER Unavailable Unavailable Jackelyn, A Miya EDGER FEEDER Unavailable Unavailable Jackelyn, A Miya EDGER FEEDER Unavailable Unavailable Jackelyn, A Miya EDGER FEEDER Unavailable Unavailable Jackelyn, A Miya EDGER FEEDER Unavailable Unavailable Jackelyn, A Miya EDGER FEEDER Unavailable Unavailable Jackelyn, A Miya EDGER FEEDER Unavailable Unavailable Jackelyn, A Miya EDGER FEEDER Unavailable Unavailable Jackelyn, A Miya EDGER FEEDER Unavailable Unavailable Sherrell Sapp Unavailable Re-disclosure Warning The records that you are about to access may contain information from federally-assisted alcohol or drug abuse programs. If such information is present, then the following federally mandated warning applies: This information has been disclosed to you from records protected by federal confidentiality rules (42 CFR part 2). The federal rules prohibit you from making any further disclosure of this information unless further disclosure is expressly permitted by the written consent of the person to whom it pertains or as otherwise permitted by 42 CFR part 2. A general authorization for the release of medical or other information is NOT sufficient for this purpose. The Federal rules restrict any use of the information to criminally investigate or prosecute any alcohol or drug abuse patient.The records that you are about to access may contain highly sensitive health information, the redisclosure of which is protected by Article 27-F of the [facility] Public Health law. If you continue you may have access to information: Regarding HIV / AIDS; Provided by facilities licensed or operated by the [facility] Office of Mental Health; or Provided by the [facility] Office for People With Developmental Disabilities. If such information is present, then the following [facility] mandated warning applies: This information has been disclosed to you from confidential records which are protected by state law. State law prohibits you from making any further disclosure of this information without the specific written consent of the person to whom it pertains, or as otherwise permitted by law. Any unauthorized further disclosure in violation of state law may result in a fine or mcfp sentence or both. A general authorization for the release of medical or other information is NOT sufficient authorization for further disc losure. Family History Family Member Name Family Member Gender Family Member Status Date o f Status Description Data Source(s) Unknown Unknown Problem [facility] Unknown Unknown Problem [facility] Unknown Male Problem [facility] ([facility]) Encounters Encounter Providers Location Date Indications Data Source(s ) Outpatient Attender: Lisa ANTHONY 06/15/2021 12:00:00 AM T [facility] Extended Individual Psychotherapy - 45 min Attender: Clark Cruz [facility] 12/21/2020 02:30:00 AM EDT - 12/21/2020 02:30:00 AM EDT [facility] ([facility]) Attender: Moisés Cruz 12/21/2020 12:00:00 AM EDT [facility] ([facility]) Outpatient Attender: Woodrow Wilson NP [facility] 12/20/2020 03:00:00 AM EDT - 12/20/2020 03:00:00 AM EDT [facility] ([facility]) Attender: Woodrow Wilson NP 12/20/2020 12:00:00 AM EDT [facility] ([facility]) Outpatient Attender: Sugar Jaramillo MD [id number] 12/13/19 12:00:00 AM EDT - 12/12/2020 03:04:52 PM EDT [facility] Outpatient [facility] 12/09/2020 12:00:00 AM EDT eCW1 ([facility]) Outpatient Attender: Miya TREJO 12/06/2020 03:20 :00 PM EDT [facility] 12/06/2020 12:00:00 AM EDT eCW1 ([facility]) Attender: Moisés Cruz 11/25/2020 12:00:00 AM EDT [facility] ([facility]) Extended Individual Psychotherapy - 45 min Attender: Clark Cruz [facility] 11/23/2020 06:00:00 AM EDT - 11/23/2020 06:00:00 AM EDT [facility] ([facility]) Outpatient Attender: Woodrow Wilson NP [facility] 11/17/2020 11:00:00 AM EDT - 11/17/2020 11:00:00 AM EDT [facility] ([facility]) Attender: Woodrow Wilson NP 11/17/2020 12:00:00 AM EDT [facility] ([facility]) Outpatient Attender: Rebecca TREJO-CConsultant: [facility] [id number] 11/04/2020 08:50:00 AM EDT [facility] Outpatient Attender: Rebecca TREJO-CReferrer: Me allison TREJO EMERGENCY [id number] 11/04/2020 08:48:00 AM EDT - 11/04/2020 08:48:00 AM EDT [facility] Outpatient [facility] 11/04/2020 12:00:00 AM EDT eCW1 ([facility]) Attender: Moisés Cruz 10/28/2020 12:00:00 AM EDT [facility] ([facility]) Extended Individual Psychotherapy - 45 min Attender: Clark figueroa Anthony [facility] 10/26/2020 06:00:00 AM EDT - 10/26/2020 06:00:00 AM EDT [facility] ([facility]) Extended Individual Psychotherapy - 45 min Attender: Clark figueroa Anthony [facility] 10/10/2020 02:00:00 AM EDT - 10/10/2020 02:00:00 AM EDT [facility] ([facility]) Attender: Moisés Cruz 10/10/2020 12:00:00 AM EDT [facility] ([facility]) Attender: Moisés Cruz 09/23/2020 12:00:00 AM EDT [facility] ([facility]) Extended Individual Psychotherapy - 45 min Attender: Clark figueroa [facility] 09/21/2020 03:00:00 AM EDT - 09/21/2020 03:00:00 AM EDT [facility] ([facility]) Outpatient Attender: Miya TREJO 09/20/2020 07:42 :00 AM EDT [facility] Outpatient [facility] 09/20/2020 12:00:00 AM EDT eCW1 ([facility]) Extended Individual Psychotherapy - 45 min Attender: Clark figueroa [facility] 09/02/2020 03:00:00 AM EDT - 09/02/2020 03:00:00 AM EDT [facility] ([facility]) Attender: Moisés Cruz 09/02/2020 12:00:00 AM EDT [facility] ([facility]) [place] [address] [address] 08/31/2020 12:00:00 AM EDT eCW1 ([facility]) [place] [address] [address] 08/29/2020 12:00:00 AM EDT eCW1 ([facility]) Attender: Moisés Cruz 08/05/2020 12:00:00 AM EDT [facility] ([facility]) Extended Individual Psychotherapy - 45 min Attender: Clark figueroa [facility] 08/03/2020 03:00:00 AM EDT - 08/03/2020 03:00:00 AM EDT [facility] ([facility]) Outpatient Attender: Woodrow Wilson NP [facility] 07/21/2020 11:00:00 AM EDT - 07/21/2020 11:00:00 AM EDT [facility] ([facility]) Attender: Woodrow Wilson NP 07/21/2020 12:00:00 AM EDT [facility] ([facility]) Attender: Moisés Cruz 06/30/2020 12:00:00 AM EDT [facility] ([facility]) Extended Individual Psychotherapy - 45 min Attender: Clark figueroa [facility] 06/27/2020 02:00:00 AM EDT - 06/27/2020 02:00:00 AM EDT [facility] ([facility]) Attender: Moisés Cruz 06/20/2020 12:00:00 AM EDT [facility] ([facility]) Extended Individual Psychotherapy - 45 min Attender: Clark figueroa [facility] 06/17/2020 01:30:00 AM EDT - 06/17/2020 01:30:00 AM EDT [facility] ([facility]) Outpatient Attender: Woodrow Wilson NP [facility] 06/16/2020 11:00:00 AM EDT - 06/16/2020 11:00:00 AM EDT [facility] ([facility]) Attender: Woodrow Wilson NP 06/16/2020 12:00:00 AM EDT [facility] ([facility]) Attender: Moisés Cruz 06/12/2020 12:00:00 AM EDT [facility] ([facility]) Extended Individual Psychotherapy - 45 min Attender: Clark Cruz [facility] 06/10/2020 12:00:00 PM EDT - 06/10/2020 12:00:00 PM EDT [facility] ([facility]) Outpatient Attender: Sugar Jaramillo MD [id number] 06/10/19 12:00:00 AM EDT - 06/09/2020 02:05:50 PM [facility] [address] [address] 05/05/2020 12:00:00 AM EST eCW1 ([facility]) [place] [address] [address] 03/01/2020 12:00:00 AM EST eCW1 ([facility]) Attender: Lisa Abbott 02/16/2020 12:00:00 A M EST [facility] ([facility]) Extended Individual Psychotherapy - 45 min Attender: Mary Abbott [facility] 02/15/2020 09:00:00 AM EST - 02/15/2020 09:00:00 AM EST [facility] ([facility]) Outpatient Attender: OMARI BOWENS MD [facility] 02/15/2020 01:30:00 AM EST - 02/15/2020 01:30:00 AM EST [facility] ([facility]) Attender: OMARI BOWENS MD 02/15/2020 12:00:00 A M EST [facility] ([facility]) Brief Individual Psychotherapy - 20 min Attender: Sherrell titus [facility] 01/22/2020 09:30:00 AM EST - 01/22/2020 09:30:00 AM EST [facility] ([facility]) Attender: Sherrell Sapp 01/22/2020 12:00:[address] [facility] ([facility]) Outpatient Attender: OMARI BOWENS MD [facility] 01/18/2020 02:30:00 AM EST - 01/18/2020 02:30:00 AM EST [facility] ([facility]) Attender: OMARI BOWENS MD 01/18/2020 12:00:00 A M EST [facility] ([facility]) [id number]"Psychotherapy Attender: Sherrell Sapp [facility] 01/15/2020 09:00:00 AM EST - 01/15/2020 09:00:00 AM EST [facility] ([facility]) Attender: Sherrell Sapp 01/15/2020 12:00:[address] [facility] ([facility]) [id number]"Psychotherapy Attender: Sherrell Sapp [facility] 12/22/2019 02:00:00 AM EDT - 12/22/2019 02:00:00 AM EDT [facility] ([facility]) Attender: Sherrell Sapp 12/22/2019 12:00:00 AM E DT [facility] ([facility]) Outpatient Attender: Sugar Jaramillo MD [id number] 12/10/19 20 12:00:00 AM EDT - 12/10/2019 03:45:51 PM EDT Family history of malignant neoplasm of breast [facility] Family history of malignant neoplasm of breast Outpatient Attender: OMARI BOWENS MD [facility] 12/07/2019 02:30:00 AM EDT - 12/07/2019 02:30:00 AM EDT [facility] ([facility]) Attender: OMARI BOWENS MD 12/07/2019 12:00:00 A M EDT [facility] ([facility]) Attender: Sherrell Sapp 12/04/2019 12:00:00 AM E DT [facility] ([facility]) [id number]"Psychotherapy Attender: Sherrell Sapp [facility] 12/01/2019 11:00:00 AM EDT - 12/01/2019 11:00:00 AM EDT [facility] ([facility]) Outpatient Attender: Miya Hayden FNPReferrer: Miya TREJO 01/07/2019 10:00:00 AM EDT [facility] Outpatient Attender: HALEY GOMES RPA-CReferrer: Miya TREJO 04/25/2018 03:38:00 PM [facility] 04/25/2018 03:38:00 PM [facility] Functional Status Immunizations Vaccine Date Status Description Data Source(s) COVID-19 VACCINE Pfizer 12/09/2020 12:00:00 AM EDT completed NYSIIS Vaccine Series Complete: NOThis Data was Submitted to [facility] Via [employer]. Medications Medication Brand Name Start Date Product Form Dose Route Admi nistrative Instructions Pharmacy Instructions Status Indications Reaction Description Data Source(s) quetiapine 200 MG Oral Tablet quetiapine 12/09/2020 12:00:00 AM EDT 200 mg completed <td ID="Medicat ionRxNorm_3">711282</td><td ID="MedicationMedication_3">quetiapine</td><td ID="MedicationRoute_3"></td><td ID="MedicationRouteConcept_3"></td><td ID="MedicationStartDate_3">12/09/2020</td><td ID="MedicationStopDate_3"></td><td ID="MedicationDosageFrequency_3"></td><td ID="MedicationDuration_3">90</td><td ID="MedicationFormulaStrength_3">200 mg</td><td ID="MedicationDosageForm_3">tablet</td><td ID="MedicationDosageFormCode_3"></td><td ID="MedicationDosageDescription_3"></td><td ID="MedicationMedicationId_3">[id number]</td><td ID="MedicationAccount_3">[id number]</td><td ID="MedicationNpid_3">[id number]</td><td ID="MedicationAuthorFirstName_3">Woodrow</td><td ID="MedicationAuthorLastName_3">Wilson</td><td ID="MedicationTaxonomyCode_3">[id number]</td><td ID="MedicationTaxonomyDesc_3">Nurse Practitioner</td><td ID="MedicationPhoneNumber_3">[phone]</td> [facility] ([facility]) Mupirocin 0.02 MG/MG Topical Ointment Mupirocin 2 % Mupiroci n 2 % 12/06/2020 12:00:00 AM EDT 1.0 {application} active Mupirocin 2 % eCW1 ([facility]) Mupirocin 0.02 MG/MG Topical Ointment Mupirocin 2 % Mupiroci n 2 % 12/06/2020 12:00:00 AM EDT 1.0 {application} active Mupirocin 2 % eCW1 ([facility]) gabapentin 100 MG Oral Capsule gabapentin 11/18/2020 12:00:00 AM EDT 100 mg completed <td ID="Medicat ionRxNorm_5">709180</td><td ID="MedicationMedication_5">gabapentin</td><td ID="MedicationRoute_5"></td><td ID="MedicationRouteConcept_5"></td><td ID="MedicationStartDate_5">11/18/2020</td><td ID="MedicationStopDate_5"></td><td ID="MedicationDosageFrequency_5"></td><td ID="MedicationDuration_5"></td><td ID="MedicationFormulaStrength_5">100 mg</td><td ID="MedicationDosageForm_5">capsule</td><td ID="MedicationDosageFormCode_5"></td><td ID="MedicationDosageDescription_5"></td><td ID="MedicationMedicationId_5">[id number]</td><td ID="MedicationAccount_5">[id number]</td><td ID="MedicationNpid_5">[id number]</td><td ID="MedicationAuthorFirstName_5">Woodrow</td><td ID="MedicationAuthorLastName_5">Wilson</td><td ID="MedicationTaxonomyCode_5">[id number]</td><td ID="MedicationTaxonomyDesc_5">Nurse Practitioner</td><td ID="MedicationPhoneNumber_5">[phone]</td> [facility] ([facility]) Vraylar Vraylar 11/18/2020 12:00:00 AM EDT 1.5 mg by mouth completed <td ID="MedicationRxNorm_5">9286368</td><td ID="MedicationMedication_5">Vraylar</td><td ID="MedicationRoute_5">by mouth</td><td ID="MedicationRouteConcept_5">U56041</td><td ID="MedicationStartDate_5">11/18/2020</td><td ID="MedicationStopDate_5">02/14/2021</td><td ID="MedicationDosageFrequency_5">once a day</td><td ID="MedicationDuration_5">30</td><td ID="MedicationFormulaStrength_5">1.5 mg</td><td ID="MedicationDosageForm_5">capsule</td><td ID="MedicationDosageFormCode_5"></td><td ID="MedicationDosageDescription_5"></td><td ID="MedicationMedicationId_5">84471</td><td ID="MedicationAccount_5">[id number]</td><td ID="MedicationNpid_5">[id number]</td><td ID="MedicationAuthorFirstName_5">Woodrow</td><td ID="MedicationAuthorLastName_5">Wilson</td><td ID="MedicationTaxonomyCode_5">[id number]</td><td ID="MedicationTaxonomyDesc_5">Nurse Practitioner</td><td ID="MedicationPhoneNumber_5">[phone]</td> [facility] ([facility]) Vraylar Vraylar 11/18/2020 12:00:00 AM EDT 1.5 mg by mouth completed <td ID="MedicationRxNorm_2">5954724</td><td ID="MedicationMedication_2">Vraylar</td><td ID="MedicationRoute_2">by mouth</td><td ID="MedicationRouteConcept_2">Q14402</td><td ID="MedicationStartDate_2">11/18/2020</td><td ID="MedicationStopDate_2">02/14/2021</td><td ID="MedicationDosageFrequency_2">once a day</td><td ID="MedicationDuration_2">30</td><td ID="MedicationFormulaStrength_2">1.5 mg</td><td ID="MedicationDosageForm_2">capsule</td><td ID="MedicationDosageFormCode_2"></td><td ID="MedicationDosageDescription_2"></td><td ID="MedicationMedicationId_2">[id number]</td><td ID="MedicationAccount_2">[id number]</td><td ID="MedicationNpid_2">[id number]</td><td ID="MedicationAuthorFirstName_2">Woodrow</td><td ID="MedicationAuthorLastName_2">Wilson</td><td ID="MedicationTaxonomyCode_2">[id number]</td><td ID="MedicationTaxonomyDesc_2">Nurse Practitioner</td><td ID="MedicationPhoneNumber_2">[phone]</td> [facility] ([facility]) gabapentin 100 MG Oral Capsule gabapentin 11/18/2020 12:00:00 AM EDT 100 mg completed <td ID="Medicat ionRxNorm_2">564985</td><td ID="MedicationMedication_2">gabapentin</td><td ID="MedicationRoute_2"></td><td ID="MedicationRouteConcept_2"></td><td ID="MedicationStartDate_2">11/18/2020</td><td ID="MedicationStopDate_2"></td><td ID="MedicationDosageFrequency_2"></td><td ID="MedicationDuration_2"></td><td ID="MedicationFormulaStrength_2">100 mg</td><td ID="MedicationDosageForm_2">capsule</td><td ID="MedicationDosageFormCode_2"></td><td ID="MedicationDosageDescription_2"></td><td ID="MedicationMedicationId_2">[id number]</td><td ID="MedicationAccount_2">[id number]</td><td ID="MedicationNpid_2">[id number]</td><td ID="MedicationAuthorFirstName_2">Woodrow</td><td ID="MedicationAuthorLastName_2">Wilson</td><td ID="MedicationTaxonomyCode_2">[id number]</td><td ID="MedicationTaxonomyDesc_2">Nurse Practitioner</td><td ID="MedicationPhoneNumber_2">[phone]</td> [facility] ([facility]) gabapentin 300 MG Oral Capsule gabapentin 11/17/2020 12:00:00 AM EDT 300 mg by mouth completed <td ID="Medica tionRxNorm_4">373359</td><td ID="MedicationMedication_4">gabapentin</td><td ID="MedicationRoute_4">by mouth</td><td ID="MedicationRouteConcept_4">W74117</td><td ID="MedicationStartDate_4">11/17/2020</td><td ID="MedicationStopDate_4">01/16/2021</td><td ID="MedicationDosageFrequency_4">at bedtime</td><td ID="MedicationDuration_4">30</td><td ID="MedicationFormulaStrength_4">300 mg</td><td ID="MedicationDosageForm_4">capsule</td><td ID="MedicationDosageFormCode_4"></td><td ID="MedicationDosageDescription_4"></td><td ID="MedicationMedicationId_4">11546</td><td ID="MedicationAccount_4">[id number]</td><td ID="MedicationNpid_4">[id number]</td><td ID="MedicationAuthorFirstName_4">Woodrow</td><td ID="MedicationAuthorLastName_4">Wilson</td><td ID="MedicationTaxonomyCode_4">[id number]</td><td ID="MedicationTaxonomyDesc_4">Nurse Practitioner</td><td ID="MedicationPhoneNumber_4">[phone]</td> [facility] ([facility]) quetiapine 200 MG Oral Tablet quetiapine 11/17/2020 12:00:00 AM EDT 200 mg by mouth completed <td ID="Medica tionRxNorm_3">071660</td><td ID="MedicationMedication_3">quetiapine</td><td ID="MedicationRoute_3">by mouth</td><td ID="MedicationRouteConcept_3">G68321</td><td ID="MedicationStartDate_3">11/17/2020</td><td ID="MedicationStopDate_3">01/16/2021</td><td ID="MedicationDosageFrequency_3">at bedtime</td><td ID="MedicationDuration_3">30</td><td ID="MedicationFormulaStrength_3">200 mg</td><td ID="MedicationDosageForm_3">tablet</td><td ID="MedicationDosageFormCode_3"></td><td ID="MedicationDosageDescription_3"></td><td ID="MedicationMedicationId_3">78944</td><td ID="MedicationAccount_3">[id number]</td><td ID="MedicationNpid_3">[id number]</td><td ID="MedicationAuthorFirstName_3">Woodrow</td><td ID="MedicationAuthorLastName_3">Wilson</td><td ID="MedicationTaxonomyCode_3">[id number]</td><td ID="MedicationTaxonomyDesc_3">Nurse Practitioner</td><td ID="MedicationPhoneNumber_3">[phone]</td> [facility] ([facility]) quetiapine 100 MG Oral Tablet quetiapine 08/18/2020 12:00:00 AM EDT 100 mg completed <td ID="Medicat ionRxNorm_2">486898</td><td ID="MedicationMedication_2">quetiapine</td><td ID="MedicationRoute_2"></td><td ID="MedicationRouteConcept_2"></td><td ID="MedicationStartDate_2">08/18/2020</td><td ID="MedicationStopDate_2"></td><td ID="MedicationDosageFrequency_2"></td><td ID="MedicationDuration_2">30</td><td ID="MedicationFormulaStrength_2">100 mg</td><td ID="MedicationDosageForm_2">tablet</td><td ID="MedicationDosageFormCode_2"></td><td ID="MedicationDosageDescription_2"></td><td ID="MedicationMedicationId_2">91197</td><td ID="MedicationAccount_2">[id number]</td><td ID="MedicationNpid_2">[id number]</td><td ID="MedicationAuthorFirstName_2">Woodrow</td><td ID="MedicationAuthorLastName_2">Wilson</td><td ID="MedicationTaxonomyCode_2">[id number]</td><td ID="MedicationTaxonomyDesc_2">Nurse Practitioner</td><td ID="MedicationPhoneNumber_2">[phone]</td> [facility] ([facility]) gabapentin 100 MG Oral Capsule gabapentin 08/18/2020 12:00:00 AM EDT 100 mg by mouth completed <td ID="Medica tionRxNorm_3">595203</td><td ID="MedicationMedication_3">gabapentin</td><td ID="MedicationRoute_3">by mouth</td><td ID="MedicationRouteConcept_3">H48308</td><td ID="MedicationStartDate_3">08/18/2020</td><td ID="MedicationStopDate_3">09/17/2020</td><td ID="MedicationDosageFrequency_3">twice a day</td><td ID="MedicationDuration_3">30</td><td ID="MedicationFormulaStrength_3">100 mg</td><td ID="MedicationDosageForm_3">capsule</td><td ID="MedicationDosageFormCode_3"></td><td ID="MedicationDosageDescription_3"></td><td ID="MedicationMedicationId_3">98637</td><td ID="MedicationAccount_3">[id number]</td><td ID="MedicationNpid_3">[id number]</td><td ID="MedicationAuthorFirstName_3">Woodrow</td><td ID="MedicationAuthorLastName_3">Wilson</td><td ID="MedicationTaxonomyCode_3">[id number]</td><td ID="MedicationTaxonomyDesc_3">Nurse Practitioner</td><td ID="MedicationPhoneNumber_3">[phone]</td> [facility] ([facility]) lamotrigine 200 MG Oral Tablet lamotrigine 08/09/2020 12:00:00 AM EDT 200 mg completed <td ID="Medica tionRxNorm_1">703102</td><td ID="MedicationMedication_1">lamotrigine</td><td ID="MedicationRoute_1"></td><td ID="MedicationRouteConcept_1"></td><td ID="MedicationStartDate_1">08/09/2020</td><td ID="MedicationStopDate_1"></td><td ID="MedicationDosageFrequency_1"></td><td ID="MedicationDuration_1">90</td><td ID="MedicationFormulaStrength_1">200 mg</td><td ID="MedicationDosageForm_1">tablet</td><td ID="MedicationDosageFormCode_1"></td><td ID="MedicationDosageDescription_1"></td><td ID="MedicationMedicationId_1">33925</td><td ID="MedicationAccount_1">[id number]</td><td ID="MedicationNpid_1">[id number]</td><td ID="MedicationAuthorFirstName_1">Woodrow</td><td ID="MedicationAuthorLastName_1">Wilson</td><td ID="MedicationTaxonomyCode_1">[id number]</td><td ID="MedicationTaxonomyDesc_1">Nurse Practitioner</td><td ID="MedicationPhoneNumber_1">[phone]</td> [facility] ([facility]) Vraylar Vraylar 07/21/2020 12:00:00 AM EDT 1.5 mg by mouth completed <td ID="MedicationRxNorm_4">2102307</td><td ID="MedicationMedication_4">Vraylar</td><td ID="MedicationRoute_4">by mouth</td><td ID="MedicationRouteConcept_4">D44543</td><td ID="MedicationStartDate_4">07/21/2020</td><td ID="MedicationStopDate_4">09/19/2020</td><td ID="MedicationDosageFrequency_4">once a day</td><td ID="MedicationDuration_4">30</td><td ID="MedicationFormulaStrength_4">1.5 mg</td><td ID="MedicationDosageForm_4">capsule</td><td ID="MedicationDosageFormCode_4"></td><td ID="MedicationDosageDescription_4"></td><td ID="MedicationMedicationId_4">34068</td><td ID="MedicationAccount_4">[id number]</td><td ID="MedicationNpid_4">[id number]</td><td ID="MedicationAuthorFirstName_4">Woodrow</td><td ID="MedicationAuthorLastName_4">Wilson</td><td ID="MedicationTaxonomyCode_4">[id number]</td><td ID="MedicationTaxonomyDesc_4">Nurse Practitioner</td><td ID="MedicationPhoneNumber_4">[phone]</td> [facility] ([facility]) Vraylar Vraylar 07/21/2020 12:00:00 AM EDT 1.5 mg by mouth completed <td ID="MedicationRxNorm_3">3654025</td><td ID="MedicationMedication_3">Vraylar</td><td ID="MedicationRoute_3">by mouth</td><td ID="MedicationRouteConcept_3">G15616</td><td ID="MedicationStartDate_3">07/21/2020</td><td ID="MedicationStopDate_3">09/19/2020</td><td ID="MedicationDosageFrequency_3">once a day</td><td ID="MedicationDuration_3">30</td><td ID="MedicationFormulaStrength_3">1.5 mg</td><td ID="MedicationDosageForm_3">capsule</td><td ID="MedicationDosageFormCode_3"></td><td ID="MedicationDosageDescription_3"></td><td ID="MedicationMedicationId_3">17453</td><td ID="MedicationAccount_3">[id number]</td><td ID="MedicationNpid_3">[id number]</td><td ID="MedicationAuthorFirstName_3">Woodrow</td><td ID="MedicationAuthorLastName_3">Wilson</td><td ID="MedicationTaxonomyCode_3">[id number]</td><td ID="MedicationTaxonomyDesc_3">Nurse Practitioner</td><td ID="MedicationPhoneNumber_3">[phone]</td> [facility] ([facility]) aripiprazole 10 MG Oral Tablet aripiprazole 06/16/2020 12:00:00 AM ED T 10 mg by mouth completed <td ID="Medica tionRxNorm_2">853837</td><td ID="MedicationMedication_2">aripiprazole</td><td ID="MedicationRoute_2">by mouth</td><td ID="MedicationRouteConcept_2">X93958</td><td ID="MedicationStartDate_2">06/16/2020</td><td ID="MedicationStopDate_2">08/15/2020</td><td ID="MedicationDosageFrequency_2">once a day</td><td ID="MedicationDuration_2">30</td><td ID="MedicationFormulaStrength_2">10 mg</td><td ID="MedicationDosageForm_2">tablet</td><td ID="MedicationDosageFormCode_2"></td><td ID="MedicationDosageDescription_2"></td><td ID="MedicationMedicationId_2">92427</td><td ID="MedicationAccount_2">[id number]</td><td ID="MedicationNpid_2">[id number]</td><td ID="MedicationAuthorFirstName_2">Woodrow</td><td ID="MedicationAuthorLastName_2">Wilson</td><td ID="MedicationTaxonomyCode_2">[id number]</td><td ID="MedicationTaxonomyDesc_2">Nurse Practitioner</td><td ID="MedicationPhoneNumber_2">[phone]</td> [facility] ([facility]) lamotrigine 200 MG Oral Tablet lamotrigine 06/16/2020 12:00:00 AM EDT 200 mg by mouth completed <td ID="Medica tionRxNorm_2">949618</td><td ID="MedicationMedication_2">lamotrigine</td><td ID="MedicationRoute_2">by mouth</td><td ID="MedicationRouteConcept_2">A80364</td><td ID="MedicationStartDate_2">06/16/2020</td><td ID="MedicationStopDate_2">08/15/2020</td><td ID="MedicationDosageFrequency_2">once a day</td><td ID="MedicationDuration_2">30</td><td ID="MedicationFormulaStrength_2">200 mg</td><td ID="MedicationDosageForm_2">tablet</td><td ID="MedicationDosageFormCode_2"></td><td ID="MedicationDosageDescription_2"></td><td ID="MedicationMedicationId_2">60704</td><td ID="MedicationAccount_2">[id number]</td><td ID="MedicationNpid_2">[id number]</td><td ID="MedicationAuthorFirstName_2">Woodrow</td><td ID="MedicationAuthorLastName_2">Wilson</td><td ID="MedicationTaxonomyCode_2">[id number]</td><td ID="MedicationTaxonomyDesc_2">Nurse Practitioner</td><td ID="MedicationPhoneNumber_2">[phone]</td> [facility] ([facility]) lamotrigine 200 MG Oral Tablet lamotrigine 06/16/2020 12:00:00 AM EDT 200 mg by mouth completed <td ID="Medica tionRxNorm_3">672015</td><td ID="MedicationMedication_3">lamotrigine</td><td ID="MedicationRoute_3">by mouth</td><td ID="MedicationRouteConcept_3">B96498</td><td ID="MedicationStartDate_3">06/16/2020</td><td ID="MedicationStopDate_3">08/15/2020</td><td ID="MedicationDosageFrequency_3">once a day</td><td ID="MedicationDuration_3">30</td><td ID="MedicationFormulaStrength_3">200 mg</td><td ID="MedicationDosageForm_3">tablet</td><td ID="MedicationDosageFormCode_3"></td><td ID="MedicationDosageDescription_3"></td><td ID="MedicationMedicationId_3">26633</td><td ID="MedicationAccount_3">[id number]</td><td ID="MedicationNpid_3">[id number]</td><td ID="MedicationAuthorFirstName_3">Woodrow</td><td ID="MedicationAuthorLastName_3">Wilson</td><td ID="MedicationTaxonomyCode_3">[id number]</td><td ID="MedicationTaxonomyDesc_3">Nurse Practitioner</td><td ID="MedicationPhoneNumber_3">[phone]</td> [facility] ([facility]) quetiapine 100 MG Oral Tablet [Seroquel] Seroquel 06/16/2020 12 :00:00 AM EDT 100 mg by mouth completed <td ID="Me dicationRxNorm_1">482386</td><td ID="MedicationMedication_1">Seroquel</td><td ID="MedicationRoute_1">by mouth</td><td ID="MedicationRouteConcept_1">D90261</td><td ID="MedicationStartDate_1">06/16/2020</td><td ID="MedicationStopDate_1">08/15/2020</td><td ID="MedicationDosageFrequency_1">at bedtime</td><td ID="MedicationDuration_1">30</td><td ID="MedicationFormulaStrength_1">100 mg</td><td ID="MedicationDosageForm_1">tablet</td><td ID="MedicationDosageFormCode_1"></td><td ID="MedicationDosageDescription_1"></td><td ID="MedicationMedicationId_1">60633</td><td ID="MedicationAccount_1">[id number]</td><td ID="MedicationNpid_1">[id number]</td><td ID="MedicationAuthorFirstName_1">Woodrow</td><td ID="MedicationAuthorLastName_1">Wilson</td><td ID="MedicationTaxonomyCode_1">[id number]</td><td ID="MedicationTaxonomyDesc_1">Nurse Practitioner</td><td ID="MedicationPhoneNumber_1">[phone]</td> [facility] ([facility]) Tamoxifen 10 MG Oral Tablet Tamoxifen Citrate 10 MG Or al Tablet Tamoxifen Citrate 10 MG Oral Tablet 06/09/2020 12:00:00 AM EDT active Take one tablet daily for 3 months, then one month no tablets, and repeat [facility] aripiprazole 30 MG Oral Tablet aripiprazole 04/12/2020 12:00:00 AM ES T 30 mg by mouth completed <td ID="Medica tionRxNorm_1">185310</td><td ID="MedicationMedication_1">aripiprazole</td><td ID="MedicationRoute_1">by mouth</td><td ID="MedicationRouteConcept_1">S65883</td><td ID="MedicationStartDate_1">04/12/2020</td><td ID="MedicationStopDate_1"></td><td ID="MedicationDosageFrequency_1">once a day</td><td ID="MedicationDuration_1"></td><td ID="MedicationFormulaStrength_1">30 mg</td><td ID="MedicationDosageForm_1">tablet</td><td ID="MedicationDosageFormCode_1"></td><td ID="MedicationDosageDescription_1"></td><td ID="MedicationMedicationId_1">52954</td><td ID="MedicationAccount_1">[id number]</td><td ID="MedicationNpid_1">[id number]</td><td ID="MedicationAuthorFirstName_1">Omari</td><td ID="MedicationAuthorLastName_1">Ulberg</td><td ID="MedicationTaxonomyCode_1">[id number]</td><td ID="MedicationTaxonomyDesc_1">Psychiatry</td><td ID="MedicationPhoneNumber_1"> [phone]</td> [facility] ([facility]) Fluconazole 150 MG Oral Tablet Fluconazole 150 MG 03/01/2020 12:00: 00 AM EST 1.0 {tablet} active Fluconazole 150 MG eCW1 ([facility]) Fluconazole 150 MG Oral Tablet Fluconazole 150 MG 03/01/2020 12:00: 00 AM EST 1.0 {tablet} suspended Fluconazole 150 M G eCW1 ([facility]) Fluconazole 150 MG Oral Tablet Fluconazole 150 MG 03/01/2020 12:00: 00 AM EST 1.0 {tablet} suspended Fluconazole 150 M G eCW1 ([facility]) Fluconazole 150 MG Oral Tablet Fluconazole 150 MG 03/01/2020 12:00: 00 AM EST 1.0 {tablet} suspended Fluconazole 150 M G eCW1 ([facility]) Tamoxifen 10 MG Oral Tablet Tamoxifen Citrate 10 MG Or al Tablet Tamoxifen Citrate 10 MG Oral Tablet 12/10/2019 12:00:00 AM EDT active Take on half tablet daily for 3 months, then take no pills for one month, then 3 months on, 1 month off, keep repeating pattern until directed to [facility] lamotrigine 200 MG Oral Tablet lamotrigine 12/07/2019 12:00:00 AM EDT 200 mg by mouth completed <td ID="Medica tionRxNorm_1">165907</td><td ID="MedicationMedication_1">lamotrigine</td><td ID="MedicationRoute_1">by mouth</td><td ID="MedicationRouteConcept_1">I17312</td><td ID="MedicationStartDate_1">12/07/2019</td><td ID="MedicationStopDate_1">02/05/2020</td><td ID="MedicationDosageFrequency_1">once a day</td><td ID="MedicationDuration_1">30</td><td ID="MedicationFormulaStrength_1">200 mg</td><td ID="MedicationDosageForm_1">tablet</td><td ID="MedicationDosageFormCode_1"></td><td ID="MedicationDosageDescription_1"></td><td ID="MedicationMedicationId_1">[id number]</td><td ID="MedicationAccount_1">[id number]</td><td ID="MedicationNpid_1">[id number]</td><td ID="MedicationAuthorFirstName_1">Omari</td><td ID="MedicationAuthorLastName_1">Ulberg</td><td ID="MedicationTaxonomyCode_1">2076E7284E</td><td ID="MedicationTaxonomyDesc_1">Psychiatry</td><td ID="MedicationPhoneNumber_1"> [phone]</td> [facility] ([facility]) quetiapine 100 MG Oral Tablet quetiapine 12/07/2019 12:00:00 AM EDT 100 mg by mouth completed <td ID="Medica tionRxNorm_2">[id number]</td><td ID="MedicationMedication_2">quetiapine</td><td ID="MedicationRoute_2">by mouth</td><td ID="MedicationRouteConcept_2">R89272</td><td ID="MedicationStartDate_2">12/07/2019</td><td ID="MedicationStopDate_2">02/05/2020</td><td ID="MedicationDosageFrequency_2">at bedtime</td><td ID="MedicationDuration_2">30</td><td ID="MedicationFormulaStrength_2">100 mg</td><td ID="MedicationDosageForm_2">tablet</td><td ID="MedicationDosageFormCode_2"></td><td ID="MedicationDosageDescription_2"></td><td ID="MedicationMedicationId_2">[id number]</td><td ID="MedicationAccount_2">[id number]</td><td ID="MedicationNpid_2">[id number]</td><td ID="MedicationAuthorFirstName_2">Omari</td><td ID="MedicationAuthorLastName_2">[facility]</td><td ID="MedicationTaxonomyCode_2">4514F4572I</td><td ID="MedicationTaxonomyDesc_2">Psychiatry</td><td ID="MedicationPhoneNumber_2"> [phone]</td> [facility] ([facility]) aripiprazole 30 MG Oral Tablet aripiprazole 12/07/2019 12:00:00 AM ED T 30 mg by mouth completed <td ID="Medica tionRxNorm_3">[id number]</td><td ID="MedicationMedication_3">aripiprazole</td><td ID="MedicationRoute_3">by mouth</td><td ID="MedicationRouteConcept_3">V99391</td><td ID="MedicationStartDate_3">12/07/2019</td><td ID="MedicationStopDate_3">02/05/2020</td><td ID="MedicationDosageFrequency_3">every morning</td><td ID="MedicationDuration_3">30</td><td ID="MedicationFormulaStrength_3">30 mg</td><td ID="MedicationDosageForm_3">tablet</td><td ID="MedicationDosageFormCode_3"></td><td ID="MedicationDosageDescription_3"> </td><td ID="MedicationMedicationId_3">[id number]</td><td ID="MedicationAccount_3">[id number]</td><td ID="MedicationNpid_3">[id number]</td><td ID="MedicationAuthorFirstName_3">Omari</td><td ID="MedicationAuthorLastName_3">Pascual</td><td ID="MedicationTaxonomyCode_3">2812T3037B</td><td ID="MedicationTaxonomyDesc_3">Psychiatry</td><td ID="MedicationPhoneNumber_3"> [phone]</td> [facility] ([facility]) Tamoxifen 10 MG Oral Tablet Tamoxifen Citrate 10 MG Or al Tablet Tamoxifen Citrate 10 MG Oral Tablet 09/01/2019 12:00:00 AM EDT 5 mg Oral aborted Take 0.5 tablets by mouth daily [facility] Insurance Providers Payer name Policy type / Coverage type Policy ID Covered republican ID Covered republican's relationship to ortiz Policy Ortiz Plan Information Medicaid [place] Medicaid [id number] Self [id number] Medicaid [place] Medicaid [id number] Self [id number] FOR[facility]LY [facility] COMMUNITY PLAN [facility] [id number] SP [id number] [facility] Community Plan Medigap Part B [id number] Self [id number] [facility] MEDICAID [id number] S [id number] [facility] MEDICAID [id number] S [id number] [facility] I [id number] Self [id number] [facility]-Medicaid [id number] ANSI-Medicaid [id number] ANSI-Medicaid [id number] ANSI-Medicaid [id number] ANSI-Medicaid [id number] ANSI-Medicaid [id number] ANSI-Medicaid [id number] ANSI-Medicaid [id number] ANSI-Medicaid [id number] ANSI-Medicaid [id number] ANSI-Medicaid [id number] ANSI-Medicaid [id number] ANSI-Medicaid [id number] ANSI-Medicaid [id number] ANSI-Medicaid [id number] ANSI-Medicaid [id number] ANSI-Medicaid [id number] ANSI-Medicaid [id number] [facility] Health Maintenance Organization (HMO) [id number] Self [id number] ANSI-Medicaid [id number] ANSI-Medicaid [id number] ANSI-Medicaid [id number] ANSI-Medicaid [id number] [facility] Health Maintenance Organization (O) [id number] Self [id number] [facility] Health Maintenance Organization (O) [id number] Self [id number] [facility] Health Maintenance Organization [place] [id number] Self [id number] [facility] Health Maintenance Organization [place] [id number] Self [id number] ANSI-Medicaid [id number] [facility] MEDICAID [id number] S [id number] [facility] Health Maintenance Organization [place] [id number] Self [id number] MEDICAID [id number] SP [id number] Medicaid [place] Medicaid [id number]. [id number] Self [id number] MEDICAID [facility] [id number] S [id number] [facility] [place] Health Maintenance Organization (HMO) [id number] Self [employer] COMM[employer]ITY [employer]AN MCDO [id number] SP [id number] [facility](MCAID) P [id number] S [id number] BLUE [employer] PLAN [id number] SP [id number] HMO BLUE [id number] SP [id number] SELF PAY UNAVAILABLE SP UNAVAILA BLE [facility] MEDICAID [id number] S [id number] [employer] COMMUNITY PLAN MCDHMO [id number] SP [id number] [facility](MCAID) O [id number] S [id number] ANSI-Medicaid [id number] [facility] Health Maintenance Organization (HMO) [id number] Self [id number] ANSI-Medicaid [id number] [facility]-Medicaid [id number] Problems, Conditions, and Diagnoses Code Display Name Description Problem Type Effective Dates Data Source(s) Z51.81 Encounter for therapeutic drug level mon itoring ENCOUNTER FOR THERAPEUTIC DRUG LEVEL MONITORING Diagnosis 12/06/2020 03:20:00 PM [facility] Z13.228 Encounter for screening for other metabo lic disorders ENCOUNTER FOR SCREENING FOR OTHER METABOLIC DISORD Diagnosis 12/06/2020 03:20:00 PM [facility] Z13.29 Encounter for screening for other suspec yanci endocrine disorder ENCOUNTER FOR SCREENING FOR OTH SUSPECTED ENDOCRIN Diagnosis 12/06/2020 03:20:00 PM [facility] Z13.0 Encounter for screening for diseases of the blood and blood-forming organs and certain disorders involving the immune mechanism ENCNTR SCREEN FOR DIS OF THE BLD/BLD-FORM ORG/IMMU Diagnosis 12/06/2020 03:20:00 PM [facility] Z13.220 Encounter for screening for lipoid disor ders ENCOUNTER FOR SCREENING FOR LIPOID DISORDERS Diagnosis 12/06/2020 03:20:00 PM [facility] l F17.210 Nicotine dependence, cigarettes, uncompl icated NICOTINE DEPENDENCE, CIGARETTES, UNCOMPLICATED Diagnosis 12/06/2020 03:20:00 PM [facility] L08.9 Local infection of the skin and subcutan eous tissue, unspecified LOCAL INFECTION OF THE SKIN AND SUBCUTANEOUS TISSU Diagnosis 03:20:00 PM [facility] E55.9 Vitamin D deficiency, unspecified VITAMIN D DEFI CIENCY, UNSPECIFIED Diagnosis 12/06/2020 03:20:00 PM [facility] G43.819 Other migraine, intractable, without sta tus migrainosus OTHER MIGRAINE, INTRACTABLE, WITHOUT STATUS MIGRAI Diagnosis 12/06/2020 03:20:00 PM [facility] F31.9 Bipolar disorder, unspecified BIPOLAR DISORDER, UNSPEC IFIED Diagnosis 12/06/2020 03:20:00 PM [facility] Z00.00 Encounter for general adult medical examination without abnormal findings ENCNTR FOR GENERAL ADULT MEDICAL EXAM W/O ABNORMAL FINDINGS Diagnosis 12/06/2020 03:20:00 PM [facility] R35.0 Frequency of micturition FREQUENCY OF MICTURITION Diag nosis 11/04/2020 08:48:00 AM [facility] R30.0 Dysuria DYSURIA Diagnosis 11/04/2020 08:48:00 AM [facility] R10.9 Unspecified abdominal pain UNSPECIFIED ABDOMINAL PAIN Diagnosis 11/04/2020 08:48:00 AM [facility] N64.4 Mastodynia MASTODYNIA Diagnosis 09/20/2020 07:42:00 AM [facility] N63.20 UNSPECIFIED LUMP IN THE LEFT BREAST, UNS PECIFIED Q UNSPECIFIED LUMP IN THE LEFT BREAST, UNSPECIFIED Q Diagnosis 09/20/2020 07:42:00 AM [facility] R10.30 Lower abdominal pain, unspecified LOWER ABDOMINA L PAIN, UNSPECIFIED Diagnosis 09/20/2020 07:42:00 AM [facility] R42 Dizziness and giddiness DIZZINESS AND GIDDINESS Diagno sis 09/20/2020 07:42:00 AM [facility] F31.9 Bipolar disorder, unspecified Unspecified Bipola r and Related Disorder Condition 12/21/2020 12:00:00 AM EDT [facility] ([facility]) F41.9 Anxiety disorder, unspecified Unspecified Anxiety Diso rder Condition 12/21/2020 12:00:00 AM EDT [facility] ([facility]) F31.9 Bipolar disorder, unspecified Bipolar I Disorder, Current or most recent episode depressed, Unspecified Condition 02/16/2020 12:00:00 AM EST [facility] ([facility]) Surgeries/Procedures Procedure Description Date Indications Data Source(s) Extended Individual Psychotherapy - 45 min 12/21/2020 12:00:00 AM EDT - 12/21/2020 12:00:00 AM EDT [facility] ([facility]) Extended Individual Psychotherapy - 45 min 12:00:00 AM EDT [facility] ([facility]) MHC Telemed E/M Lvl 2--Est pt 12/20/2020 12:00:00 AM EDT - 12/20/2020 12:00:00 AM EDT [facility] ([facility]) MHC Telemed E/M Lvl 2--Est pt 12/20/2020 12:00:00 AM E DT [facility] ([facility]) Extended Individual Psychotherapy - 45 min 11/25/2020 12:00:00 AM EDT - 11/25/2020 12:00:00 AM EDT [facility] ([facility]) Extended Individual Psychotherapy - 45 min 12:00:00 AM EDT [facility] ([facility]) MHC Telemed E/M Lvl 3--Est pt 11/17/2020 12:00:00 AM EDT - 11/17/2020 12:00:00 AM EDT [facility] ([facility]) Telemed A/O 30" 11/17/2020 12:00:00 AM EDT [facility] ([facility]) MHC Telemed E/M Lvl 3--Est pt 11/17/2020 12:00:00 AM E DT [facility] ([facility]) Extended Individual Psychotherapy - 45 min 10/28/2020 12:00:00 AM EDT - 10/28/2020 12:00:00 AM EDT [facility] ([facility]) Extended Individual Psychotherapy - 45 min 12:00:00 AM EDT [facility] ([facility]) Extended Individual Psychotherapy - 45 min 10/10/2020 12:00:00 AM EDT - 10/10/2020 12:00:00 AM EDT [facility] ([facility]) Extended Individual Psychotherapy - 45 min 12:00:00 AM EDT [facility] ([facility]) Extended Individual Psychotherapy - 45 min 09/23/2020 12:00:00 AM EDT - 09/23/2020 12:00:00 AM EDT [facility] ([facility]) Extended Individual Psychotherapy - 45 min 12:00:00 AM EDT [facility] ([facility]) Extended Individual Psychotherapy - 45 min 09/02/2020 12:00:00 AM EDT - 09/02/2020 12:00:00 AM EDT [facility] ([facility]) Extended Individual Psychotherapy - 45 min 12:00:00 AM EDT [facility] ([facility]) Extended Individual Psychotherapy - 45 min 08/05/2020 12:00:00 AM EDT - 08/05/2020 12:00:00 AM EDT [facility] ([facility]) Extended Individual Psychotherapy - 45 min 12:00:00 AM EDT [facility] ([facility]) MHC Telemed E/M Lvl 3--Est pt 07/21/2020 12:00:00 AM EDT - 07/21/2020 12:00:00 AM EDT [facility] ([facility]) Telemed A/O 30" 07/21/2020 12:00:00 AM EDT [facility] ([facility]) MHC Telemed E/M Lvl 3--Est pt 07/21/2020 12:00:00 AM E DT [facility] ([facility]) Extended Individual Psychotherapy - 45 min 06/30/2020 12:00:00 AM EDT - 06/30/2020 12:00:00 AM EDT [facility] ([facility]) Extended Individual Psychotherapy - 45 min 1 12:00:00 AM EDT [facility] ([facility]) Extended Individual Psychotherapy - 45 min 06/20/2020 12:00:00 AM EDT - 06/20/2020 12:00:00 AM EDT [facility] ([facility]) Extended Individual Psychotherapy - 45 min 12:00:00 AM EDT [facility] ([facility]) MHC Telemed E/M Lvl 3--Est pt 06/16/2020 12:00:00 AM EDT - 06/16/2020 12:00:00 AM EDT [facility] ([facility]) MHC Telemed E/M Lvl 3--Est pt 06/16/2020 12:00:00 AM E DT [facility] ([facility]) Extended Individual Psychotherapy - 45 min 06/12/2020 12:00:00 AM EDT - 06/12/2020 12:00:00 AM EDT [facility] ([facility]) Extended Individual Psychotherapy - 45 min 12:00:00 AM EDT [facility] ([facility]) Extended Individual Psychotherapy - 45 min 02/16/2020 12:00:00 AM EST - 02/16/2020 12:00:00 AM EST [facility] ([facility]) Extended Individual Psychotherapy - 45 min 0 12:00:00 AM EST [facility] ([facility]) MHC Telemed E/M Lvl 3--Est pt 02/15/2020 12:00:00 AM EST - 02/15/2020 12:00:00 AM EST [facility] ([facility]) MHC Telemed E/M Lvl 3--Est pt 02/15/2020 12:00:[address] [facility] ([facility]) Brief Individual Psychotherapy - 20 min 01/22/2020 12:00:00 AM EST - 01/22/2020 12:00:00 AM EST [facility] ([facility]) Brief Individual Psychotherapy - 20 min 01/22/2020 12: 00:00 AM EST [facility] ([facility]) MHC Telemed E/M Lvl 3--Est pt 01/18/2020 12:00:00 AM EST - 01/18/2020 12:00:00 AM EST [facility] ([facility]) MHC Telemed E/M Lvl 3--Est pt 01/18/2020 12:00:[address] [facility] ([facility]) [id number]"Psychotherapy 0 12:00:00 AM EST - 01/15/2020 12:00:00 AM EST [facility] ([facility]) [id number]"Psychotherapy 01/15/2020 12:00:00 AM EST [facility] ([facility]) [id number]"Psychotherapy 0 12:00:00 AM EDT - 12/22/2019 12:00:00 AM EDT [facility] ([facility]) [id number]"Psychotherapy 12/22/2019 12:00:00 AM EDT [facility] ([facility]) MHC Telemed E/M Lvl 3--Est pt 12/07/2019 12:00:00 AM EDT - 12/07/2019 12:00:00 AM EDT [facility] ([facility]) MHC Telemed E/M Lvl 3--Est pt 12/07/2019 12:00:00 AM E DT [facility] ([facility]) [id number]"Psychotherapy 0 12:00:00 AM EDT - 12/04/2019 12:00:00 AM EDT [facility] ([facility]) [id number]"Psychotherapy 12/01/2019 12:00:00 AM EDT [facility] ([facility]) Results ID Date Data Source [id number] 12/12/2020 03:05:56 PM EDT [facility] Name Value Range Interpretation Code Description Data Eblen rce(s) Supporting Document(s) Progress Note [facility] WICIAq4mLuYVArKn42/UILwfMIIlx8SqIEdwEFl9YMjbWKNfD8SqZCY1mM6nGVP0XBkGHgKpJxDsBCL3 lbm ScZjdSFkTpBKFzFrwDJjRsNNplTeobcHRvDC9WuVP6ARVdU37nDTWuSYHfS9IvUVHhRKV+Zq8EHEKamR FkZX6ATmaV4D4wo9uFLE7fEZ/YszPp9jsqqc7jluqQb3AnV+3jqqr0ukuXbUMYehOUejWx/PqCBCDyHK 2+3NhILF4ciN58SVI46U92sJXVx31YlQr9QSko/3vz umk39BQV/n39wmle5828kh2fq1d24BmTWsvk7V/30biwJFkGH99zvZMRRdu8m9rPVJN2yGyPJeb+OB1l k/bprDgKeSl2d31vApyY3VG25+Rx37iSf6RaIMB4Qi+qs/lc9Ja51Lrs32eEkjb4/kZRHpX0rgOnNAoa MzfjYizT5CKz2jB6RUr1AhkS/obP0S8COhvUlPre8Z M+znVukakLu/Gq0E75uRk6WyWmSTFRyVz9Szz17G/VwYRiAyqlPuxQwRfkNf5gO/64xIwO4mGPm6pjga 5LIu+bDVhxQ8q0OaGb8bsOUYTSuxzcNPZKrQOR021g+w6O7Gj3kMtP/n247I9tKnd6T1ljf+bvOB0ZuJ Stan/uYquTqOSKYHqMXSFGb0rh5+hm9kLkFg9dMg+Ij [file] AgICAgICAgICAgICAgICAgICAgICAgICAgICAgICAg ICAgICAgICAgICAgICAgICAgICAgICAgICAgICAgICAgICANCiAgICAgICAgICAgICAgICAgICAgICAg ICAgICAgICAgICAgICAgICAgICAgICAgICAgICAgICAgICAgICAgICAgICAgICAgICAgICAgICAgICAg ICAgICAgICAgICAgICAgICANCiAgICAgICAgICAgIC AgICAgICAgICAgICAgICAgICAgICAgICAgICAgICAgICAgICAgICAgICAgICAgICAgICAgICAgICAgIC AgICAgICAgICAgICAgICAgICAgICAgICAgICANCiAgICAgICAgICAgICAgICAgICAgICAgICAgICAgIC AgICAgICAgICAgICAgICAgICAgICAgICAgICAgICAg ICAgICAgICAgICAgICAgICAgICAgICAgICAgICAgICAgICAgICANCiAgICAgICAgICAgICAgICAgICAg ICAgICAgICAgICAgICAgICAgICAgICAgICAgICAgICAgICAgICAgICAgICAgICAgICAgICAgICAgICAg ICAgICAgICAgICAgICAgICAgICANCiAgICAgICAgIC AgICAgICAgICAgICAgICAgICAgICAgICAgICAgICAgICAgICAgICAgICAgICAgICAgICAgICAgICAgIC AgICAgICAgICAgICAgICAgICAgICAgICAgICAgICANCiAgICAgICAgICAgICAgICAgICAgICAgICAgIC AgICAgICAgICAgICAgICAgICAgICAgICAgICAgICAg ICAgICAgICAgICAgICAgICAgICAgICAgICAgICAgICAgICAgICAgICANCiAgICAgICAgICAgICAgICAg ICAgICAgICAgICAgICAgICAgICAgICAgICAgICAgICAgICAgICAgICAgICAgICAgICAgICAgICAgICAg ICAgICAgICAgICAgICAgICAgICAgICANCiAgICAgIC AgICAgICAgICAgICAgICAgICAgICAgICAgICAgICAgICAgICAgICAgICAgICAgICAgICAgICAgICAgIC AgICAgICAgICAgICAgICAgICAgICAgICAgICAgICAgICANCiAgICAgICAgICAgICAgICAgICAgICAgIC AgICAgICAgICAgICAgICAgICAgICAgICAgICAgICAg ICAgICAgICAgICAgICAgICAgICAgICAgICAgICAgICAgICAgICAgICAgICANCjw/hAKyR3lmrDKmjuZ2 C6rhBn4YWm9VCP9bh2ZnYFYjGOcmbhRzEytFPbOnZPFeGlzSQyj3PTnkQP8VuNGmN4VzJ3HkKDluIP4Y FEJzWDMawSFfVVLjBNXjJmL3BYLrOUouVL3IeLIzDV ejTCMuDVCiDmMcDNPpWNFwSUEtNYEgXEYSCGQxFXNoCxJaLLpdND9Oa3IprPD8KDu+Te7YDW2gz4FnSR zfXBNaTH6bpt7SQUxSGmUiO4XxoqQ5GOLdGAMoOu1CZBLyFIPfxYQyRPVoOUDCLxBcF9DjaR68QBDGGn 4+TAwvmsRrUogKJmGkMKTty3EoQCe0NF4UTCYdDIm7 wLVrGXTkG6Koe4FcLr43ZDZwOmxqGVDkcNWXmRxycdEKwrTnawxbGINhKFRpLTDzXB2gJISpQILrPwI7 QQWKGG2EPBDeGSAysUObPWSoELKXSV4UAOyvJLJ5XTNbyyAkgTVlHTwlWN5FSHZcisGzNlTjFHOSZGo+ Dt4QWW0ds1PrHIjpXeZbRM5kol2COMqMJsCgH9F6wG GhF1E1GKoySy8RYHZfYOKyVppvHMTFGNjuVL8UQR7pqfN5MF1ZpPGwZJZjPZOaxPNeUAn0X64roFFqXE vuIF5XXXY+Elyssa+Uq5NMXMaSUJkDXOdGmInNAAARkFdX1CbI5GFb8QyS4MdCJ97lIkqulUeUPyjKU4HIN 3sPTHkKGBEDD5EjUOzeB5sxsDaTWMiLBIVLxWdW88p yBPiTUSsKKS2YPGkLp7TOMWjK8XdqmVpgAfczmCwUKLvYURQYM6RNNzeqxYjnJHaoUgbAW90bNboPD0A Ew1FQoEdYP4xbd2ArIDcLf5CYYHgYl0XVIOoFOXzPCUrOSH5VJBlKzQyYRuqVLDoJAHlLZZ9ALMvLIDh YK9TAcGbRFWrYnHgTEkwEWUhPAQybu6OHRMzXRNjHo V7BCXzYDYzEUFdKVcfIHWmMNDoBOV2PAQaPUNtNW3WThYqILLsDRP6AwOyXWOcZVUsmt7TBBVbLCZgZP sgDtQdBTQwJVMaNGhuQDNnJIZ7SsEsRMOuLGGcEX2QUaKbTQGvQSh6AIVtWSKoVVHwym6UOKMdJDMbYn t9DVHnHNHcUIMnWUfrCUCxWWFwFMY2RXSdMWBrUL7E AhTlPRNdPNK7MjYpGIVsSBZljq0MRVDuQBQzOvB0GdVlPUUmJUElHBaiLWSlQRF3IqAuLCXjBTFtFS3B KiNoCHXcOGz6AoBpCNYfAJTtex3RIZDwIWPlCAd7FoGjTDPtPSTnWHfaZNWkALMnIAfrYGSpDBZbSI0E ClOkYOKvCzTqNmTvMJEbDWMxzg4CSNRrGOMiBSEfWK GdJHByOPRvMSruIBTqYLWqNUL6IDNpRHMmWF7LCxXfGLGqYfX5YeOaXHKsCTWrmn0WQZXvRPTqZcM5WF CiBMXkRRApKBfvRPQnAYXpLcsqKKPoFRLvTL5QLeJwQZWyThN1RDsiVFNjUCUbmf9NHWHtANZqQyikVE SpMFVnXXPhZGngCCOyVKQtRLh0UXCvJIDmEU6NDvXz BPKnHjI2RfjfAWKiCUJiai6BDKMlDFZhUOHmCEBhNDEmTYRyRZuqXEEpWNC8Aoo2OMRmBLDkES6DIdKa OJKcZlJ6AXWuZINjCNGktc7NZESpYSXkViN8WTWyRESzMSInVLxgQFLlTTH9VpH9FBLkBHJtHW7LNlOs TVXpGsl0VVGeDNLqFOVqrq4WrANsrLnknb8SCWuFPh 6ElFloIXDcSSupHv6xuJAmKbFqAENGSa1NqwPvGJKnTZWUWZqsVHKlZYT9SFItNVWuWCU5LMb0XBR4QS FlVVJzUhSvBMf0OgLvSmO1Joz9QMNcYsF6VLciHLLlTWL2VdDjE1HpEsZoEMJ5XYR+EY3sAQp+Pg0Kc3 RfluS2edFpIPqgCqA9YA2YTOKNI1ACHc== ID Date Data Source [id number] 11/04/2020 09:12:00 AM EDT [facility] Name Value Range Interpretation Code Description Data Belen rce(s) Supporting Document(s) URINE COLOR. [facility] URINE APPEARANCE SLIGHTY CLOUDY [facility] URINE GLUCOSE (UA) NEGATIVE mg/dL NEGATIVE [facility] URINE BILIRUBIN NEGATIVE NEGATIVE [facility] URINE KETONE NEGATIVE mg/[facility],URINE 1.025 1.005-1.030 [facility] URINE BLOOD NEGATIVE NEGATIVE [facility] PH,URINE 5.0 5.0-9.0 [facility] URINE PROTEIN NEGATIVE mg/dL NEGATIVE [facility] URINE UROBILINOGEN NORMAL(0.2-1) mg/dL 0-1 [facility] URINE NITRATE NEGATIVE NEGATIVE [facility] URINE LEUKOCYTE ESTERASE NEGATIVE NEGATIVE [facility] ID Date Data Source URINALYSIS 11/04/2020 12:00:00 AM EDT eCW1 ([facility]) Name Value Range Interpretation Code Description Data Belen rce(s) Supporting Document(s) YELLOW URINE COLOR. eCW1 ([facility] [place] SLIGHTY CLOUDY URINE APPEARANCE eCW1 ([facility]) NEGATIVE NEGATIVE URINE GLUCOSE (UA) eCW1 ( [facility]) NEGATIVE NEGATIVE URINE KETONE eCW1 ([facility] [place]) NEGATIVE NEGATIVE URINE BILIRUBIN eCW1 ([facility]) NEGATIVE NEGATIVE URINE BLOOD eCW1 ([facility]) 1.025 1.005-1.030 SPECIFIC GRAVITY,URINE e CW1 ([facility]) 5.0 5.0-9.0 PH,URINE eCW1 ([facility]) NEGATIVE NEGATIVE URINE NITRATE eCW1 ([facility]) NEGATIVE NEGATIVE URINE PROTEIN eCW1 ([facility]) NORMAL(0.2-1) 0-1 URINE UROBILINOGEN eCW 1 ([facility]) NEGATIVE NEGATIVE URINE LEUKOCYTE ESTERASE eCW1 ([facility]) ID Date Data Source [id number] 06/09/2020 02:09:13 PM EDT [facility] Name Value Range Interpretation Code Description Data Belen rce(s) Supporting Document(s) Progress Note [facility] AIJXTe5oNqHUMjRq57/DOAxfYJBup6VbFYviESp7KIucPXZyO8OkPAG1uG4gSIY4CGwGUcVcPmBrAOId lbm [file] E+DQogICAgICAgICAgICAgICAgICAgICAgICAgICAgICAgICAgICAgICAgICAgICAgICAgICAgICAgIC AgICAgICAgICAgICAgICAgICAgICAgICAgICAgICAgICAgICAgICAgICAgDQogICAgICAgICAgICAgIC AgICAgICAgICAgICAgICAgICAgICAgICAgICAgICAg ICAgICAgICAgICAgICAgICAgICAgICAgICAgICAgICAgICAgICAgICAgICAgICAgICAgICAgDQogICAg ICAgICAgICAgICAgICAgICAgICAgICAgICAgICAgICAgICAgICAgICAgICAgICAgICAgICAgICAgICAg ICAgICAgICAgICAgICAgICAgICAgICAgICAgICAgIC AgICAgDQogICAgICAgICAgICAgICAgICAgICAgICAgICAgICAgICAgICAgICAgICAgICAgICAgICAgIC AgICAgICAgICAgICAgICAgICAgICAgICAgICAgICAgICAgICAgICAgICAgICAgDQogICAgICAgICAgIC AgICAgICAgICAgICAgICAgICAgICAgICAgICAgICAg ICAgICAgICAgICAgICAgICAgICAgICAgICAgICAgICAgICAgICAgICAgICAgICAgICAgICAgICAgDQog ICAgICAgICAgICAgICAgICAgICAgICAgICAgICAgICAgICAgICAgICAgICAgICAgICAgICAgICAgICAg ICAgICAgICAgICAgICAgICAgICAgICAgICAgICAgIC AgICAgICAgDQogICAgICAgICAgICAgICAgICAgICAgICAgICAgICAgICAgICAgICAgICAgICAgICAgIC AgICAgICAgICAgICAgICAgICAgICAgICAgICAgICAgICAgICAgICAgICAgICAgICAgDQogICAgICAgIC AgICAgICAgICAgICAgICAgICAgICAgICAgICAgICAg ICAgICAgICAgICAgICAgICAgICAgICAgICAgICAgICAgICAgICAgICAgICAgICAgICAgICAgICAgICAg DQogICAgICAgICAgICAgICAgICAgICAgICAgICAgICAgICAgICAgICAgICAgICAgICAgICAgICAgICAg ICAgICAgICAgICAgICAgICAgICAgICAgICAgICAgIC AgICAgICAgICAgDQogICAgICAgICAgICAgICAgICAgICAgICAgICAgICAgICAgICAgICAgICAgICAgIC NlOWMjITPlLSLoZAHxMCFlQZVcLIZkCHQmMFFtTJXbUCVcHMPwAUNnEMKfRJIrPPJzCHGcICr3A9gmEZ ZtUDApJM7zYZg6As1+MAhPWlTvWWI3pjJlpA8MSP5j h0MbCJlyHYIxv5OxQPs8GT4IHOWvNNzsNA4EBLmsje4ANTAgKPPizOAGi0frPqYwMRC2RKLzWodoGZ2V QJCfV6xkrxHuTXQsKCELJTfiIVAEIQkoYFPXCOVhGGMpThFqBoJdEVClZG6CEZIhC956arOxRW6PRl2E BaXgEX7wru3TGqUoSKXjFfoFJat9QIgqGM1FeVZniW SzMCJzNZALDnOaU6ehg3EcKtZoWOBOPOnsFT0Fa2ZxkGHgJDj+Ky9XNU2db3VcBLjqWVFxCI8shl7KVI zADvHkH4SdhRwsABWom3erCIYxVM7nqWSbVWZ2QU5dzpyzYItkLM7hJ6IoS43mPW5JZET6USQlSG7iQO BcRWEeFjVrXHXWHT5TLFRjRKRqdPWzXTQcMHADAR4L VAgePCN9XQRbvjGzdIEuSNocTU1VWRQfcqWcPkRcTUXORRo+Kd1QLY1sz8BvHKxwHTEcKO2qqd1HNImA FnWsL0B3nHIaE1C5MGmcYx4XCSMzCFGcYdFhOQORIBhdAV6XJI1tedS2BI9MlVJbYYZfHRFyoLTqCSz6 E52pyFIsUPczYL3KJEB+Elyssa+Yq2XQNHeIDEnJXMmZr TnWDMOJjZzT2KsU8UBq3LlO8WiRD54rDrzczRkRQuyAF1QOZ5yODWnVSZGGJ9CeAMqhM4tkqInQhNvJO NGInBmA13pdBZoKCDrSJUzHMIqFw1RVKVwR4EqorQhiOfkkbQmIMWxTEIVWE8AERdbmwTnsIQmyTihPP 93kGzmFJ6IKp4APtTbZP0rjq5LuGYbAk3GOEMxXx7B RHFxMASpYTAgWNW3BVGnBcEyKBovDUOqYWDbPNE7BEWgJJLrPL8CXhVfQSBqQvD8HiHaWSKnYXLvmx6U GEQtVFOjMZQ6XpJhVPOwJGEhZHbuHCPiBPPaNUS7SCZvBYSlJD6GDkGfKOWzLWQ3MUBsTNYsIRRisd2U RTHtUMFbBAjvRGDuHFJpRBShUCnuWAMoJIZ9ZeVlNC MgLXPyLB3HIdCfUXKcLKz2HwPgPVZkSUCpas7EPHXbHGRgAqbmNLQfJHSwFQPoHGuoBQXwDZNtDHV4PO LkIPZpBY5DXxJcOJVqTMswMRFoCCWfSWTxef6KLTZaLPRkMvJ0WAIwQGNaXVEuIWydIFWkWJE2TBB6OY IsNKOwHW2FYiCzSKVfSMhqDCRhRXBlHYUobe8AHPFc OTZoITRjWrBnWAZiCCMtBNavNLVzPMVoDMp5TRFwFUAxZN0BGaMpKVRqBuYxVUAmCDOrKVGmxr7IJDEr ABTgEXR4XIYkWZIfDROyRAxaNMPmSUAgLETtVIHwXGNnVG6VEvVtLKImRjL6ZqHnKQAgXMRquc8OQJWc ZYSfZbL5SZJqNRXcLPXuFEosAKHiUGVlMLv7QSDaTV CeJM3ZEhFoLRHiOcD3ZBSuLKFuMKOlcv2EYTOmMPHwVrm9FIUhUBMeOVMxQPldRSLtDCP8UUyoEILtFG LvEO1NHmNrJXHoGlHyLrFqJJQtSEVlws2BKUOsMZEgVMGcGIJkIJZtNUPbRFzlZQAqMYG7BTFzOAXdDC QwAT0YXkKiMRYxTwPsULxnRXXeQVBthw7EMFFoXWJk LqCfRPHoBZCsZSMvNTbgGKIbFDL2YyVbBRKiCHXcUJ8WZhBwFKYpPxdaGZHeGCGsHHCdju9SSMJvCSVj JYFqYQRzMCXiWOZbQJcvBDVhLHU5TfdpYYPcIFNkFW6OHyXzDOKtJvu9UcWqESSrFNYfyg7CaWZspLvj ws1TPKoAVw6KsBcbSTM0QCukGo6wuGPjYQZhVVYIXh 2NdpBgRMYrSQYYKJgjHUVaDCbuVCZ3UQPbSGL9GAA6HOJ1J5TlJ9OaORt5TOd8WKV5EsT4LLOdDdv4B5 S5PsmzEKpgHCfnDLU2PUO1HxEhAOngGhP+QK9oCMe+He4Tf9AdwrP1jaYgOTlwSPB6KZ3GZIDIH7DOJf == ID Date Data Source [id number] 12/10/2019 03:44:34 PM EDT [facility] Name Value Range Interpretation Code Description Data Belen rce(s) Supporting Document(s) Progress Note [facility] BVWIYz6hTrCNYqYd03/LYUujPLHbo8SqRIjzYQe1FBigVIDeR8SkAGR0mU6dRTH1TCkJKzWmZrEiVOHm lbm [file] DQogICAgICAgICAgICAgICAgICAgICAgICAgICAgICAgICAgICAgICAgICAgICAgICAgICAgICAgICAg ICAgICAgICAgICAgICAgICAgICAgICAgICAgICAgIC AgICAgICAgICAgDQogICAgICAgICAgICAgICAgICAgICAgICAgICAgICAgICAgICAgICAgICAgICAgIC AgICAgICAgICAgICAgICAgICAgICAgICAgICAgICAgICAgICAgICAgICAgICAgICAgICAgDQogICAgIC AgICAgICAgICAgICAgICAgICAgICAgICAgICAgICAg ICAgICAgICAgICAgICAgICAgICAgICAgICAgICAgICAgICAgICAgICAgICAgICAgICAgICAgICAgICAg ICAgDQogICAgICAgICAgICAgICAgICAgICAgICAgICAgICAgICAgICAgICAgICAgICAgICAgICAgICAg ICAgICAgICAgICAgICAgICAgICAgICAgICAgICAgIC AgICAgICAgICAgICAgDQogICAgICAgICAgICAgICAgICAgICAgICAgICAgICAgICAgICAgICAgICAgIC AgICAgICAgICAgICAgICAgICAgICAgICAgICAgICAgICAgICAgICAgICAgICAgICAgICAgICAgDQogIC AgICAgICAgICAgICAgICAgICAgICAgICAgICAgICAg ICAgICAgICAgICAgICAgICAgICAgICAgICAgICAgICAgICAgICAgICAgICAgICAgICAgICAgICAgICAg ICAgICAgDQogICAgICAgICAgICAgICAgICAgICAgICAgICAgICAgICAgICAgICAgICAgICAgICAgICAg ICAgICAgICAgICAgICAgICAgICAgICAgICAgICAgIC AgICAgICAgICAgICAgICAgDQogICAgICAgICAgICAgICAgICAgICAgICAgICAgICAgICAgICAgICAgIC AgICAgICAgICAgICAgICAgICAgICAgICAgICAgICAgICAgICAgICAgICAgICAgICAgICAgICAgICAgDQ ogICAgICAgICAgICAgICAgICAgICAgICAgICAgICAg ICAgICAgICAgICAgICAgICAgICAgICAgICAgICAgICAgICAgICAgICAgICAgICAgICAgICAgICAgICAg ICAgICAgICAgDQogICAgICAgICAgICAgICAgICAgICAgICAgICAgICAgICAgICAgICAgICAgICAgICAg ICAgICAgICAgICAgICAgICAgICAgICAgICAgICAgIC MrXAYvNNXpXDQdWFWlRBAdCWAeUEc1X0reBBPdGWQtSQ9tDEv4Sg2+SHsIQuQgBDI2pzYqwD3LSH5yy1 WlMHydTDIqo8SxZNg4QJ5TXPDyVZbfVC6VDHxhrg7JXBTaAPWdbYFSo8rdGqOyQGJ7BLByVztbYK9XQE SuD2rqhvSyMTZqLDNAUXppPYOUYHllBSJIXNGrKMNv TlOnKYjnPD4Qv7VabTN6ZDp+Pc0ZIB5pu3KwIRfcQZCmHQ8tik8RGIrQDpKbS4VsceM9LZIoOMEpPx2N VIZlDEBauYGpPgKkDCACInMvU0JhfQ69IRAYKy2+ALttydWwCnfTYkSwJIQii2VsAFj5LS7MYLFkEQi5 pFVhXADkQ2Jya2YeJv54TSIaDdggFOMjeSCPcXycqm EXblOekokkQBIsKTWrHJAzXQ5fLBWdMLVrKyRvUNWLTK6AMJVoGURwpXLuORLmPEQICD7WXYtgBIU5HM QxglDpsBZsLLsdCF6ZBCCdktBwJrLlTBOGVRm+Hm6FGC8ao7UlEOtjWnOuUI6hdb5USIvTOxAqO8N2oW NjO0K3FZxpRa7OEQCqJNUiVjsoGKMJCRmgHA8FCX8z aqG5UL8FcFLuEDPaWZJoiNUsQGy6V47tiBVrVGigXG4CPIB+Elyssa+Pb8UCNGqNAFeOCAiSfGxMUTOMpAx D8AnI2CCz8OkN1IkHO55tMtofhPoSAeaXP0DAX9rINSvVTFVLG5SjSRraL6ojcNtVDJqHNHSFoHjK28w eBScMXCcOYCjTMBmDn3FHGHcL8IpidLvuYlgdrBmGO JwSJSWCK2CMGjuyuFkhYVzcUzqRJ06eQsfVN4GGx8HRfMhIN8tux9HtDMvCt3MSIKuFS8JNVKgPJSbVX DcIDU4UJGyFbYuKKqdRNCyYGBbFED5QVPrCYDoEK7KBaIrBIWsXwA2QmIlWNNvUZAsyu6XTJNqQVEyXz K7VvHwTUBjEBNzHCsnWZFlHFNeONN1KDHtORGdUL5W TdRbHBQpOBB9RKWgTMDcUYApjf5BJRRvKDJdQTb3AQQcDFLxFRVoSQduBSBbBUF2AgIyDHBjJJJiTJ8J UyAuMUHpXYk8HCYtVDSgGNBeae5DUPJtNIMoBzrbHUGwCADtFKPzQLxkFQGxPHAsNRPcMGWmMLSvYF3E XfLmUYGoLPE4VuRaMNXlYIKvnm2COKNsVZLwDanqYG KqCRZaGWKbDCxdREEsGZH3Att2UZXmPDGaQB0JChPiUDQpDPw5SSOoNJWwRTMtei4XSMIxONEdCXD4OX ZlTADxRMRnAMpkYDVaYJT6HZM7QFOiNYOmMS1NDxWfGYMeAVtyEzvtYBNrTEJipb2CTCFtGPDjMOTeXq TpMOPhAPPjHJfeYHRgUZBaSFF4EBYjXSSrGL6UYrCw PHKtKiIuVmCcUKTgLIQsnk6PWXUpHKLiNNO2CEVkRAFaUXTjOQrhQPLjGLQqUaAeYXOgVSPrMJ4XLfYe LIVcPvB0ZxmdHBFiMAMihu5RYUJsZSUvTxpvMNIiLGCsSVYlXFxqMVPuJXSdNUPhYESvEOAwUS8GXzCq TPTmBwBaKUxtIBDlSELfrh4MXJTpHVNcNYQcCgIlWT XwGYXvIYhuAYFuZDS7ZvVwWVGzEXOlXM6VTxBdNTBrAkF2ZZveERXeWGPaac8JIECbKAHiBBahOnSrBM BeXHFxAGdbOLNlNWZ9Svl6SJEqENTwJO7TQgQrDMYbHuN7WuRvGAKfXZQpew5NNKOgYQZfFmYlRJOaKV SuWUSzSSt2xnRhsAMrSSz1PO3NT5UmvkJpSsBUNb2A u012CPJtKUObYz9TO5vqVf7uHODaWUFWCe3OKAh6ZqF3EYH9QGEpKlL4E7FhXYYlLQt7QSBkYMKhDqM0 Mzg+NPkcTfplDfp7TAPgIbNlIMPyAFM9GMXmWLLqLZBlFqGnHG4tEDKMOc5+DQpzdGFydHhyZWYNCjM2 IJA7CVmwNZZWDd2B Procedure Social History Code Duration Value Status Description Data Source(s ) Smoking 12/21/2020 12:00:00 AM EDT Current every day smoker co mpleted Current every day smoker [facility] ([facility]) Smoking 12/20/2020 12:00:00 AM EDT Current every day smoker co mpleted Current every day smoker [facility] ([facility]) Smoking 12/06/2020 12:00:00 AM EDT Current Smoker completed Curre nt Smoker eCW1 ([facility]) Smoking 12/06/2020 12:00:00 AM EDT Current Smoker completed Curre nt Smoker eCW1 ([facility]) Smoking 11/25/2020 12:00:00 AM EDT Current every day smoker co mpleted Current every day smoker [facility] ([facility]) Smoking 11/17/2020 12:00:00 AM EDT Current every day smoker co mpleted Current every day smoker [facility] ([facility]) Smoking 11/04/2020 12:00:00 AM EDT Current Smoker completed Curre nt Smoker eCW1 ([facility]) Smoking 10/28/2020 12:00:00 AM EDT Current every day smoker co mpleted Current every day smoker [facility] ([facility]) Smoking 10/10/2020 12:00:00 AM EDT Current every day smoker co mpleted Current every day smoker [facility] ([facility]) Smoking 09/23/2020 12:00:00 AM EDT Current every day smoker co mpleted Current every day smoker [facility] ([facility]) Smoking 09/20/2020 12:00:00 AM EDT Current Smoker completed Curre nt Smoker eCW1 ([facility]) Smoking 09/02/2020 12:00:00 AM EDT Current every day smoker co mpleted Current every day smoker [facility] ([facility]) Smoking 08/31/2020 12:00:00 AM EDT Current Smoker completed Curre nt Smoker eCW1 ([facility]) Smoking 08/29/2020 12:00:00 AM EDT Current Smoker completed Curre nt Smoker eCW1 ([facility]) Smoking 08/05/2020 12:00:00 AM EDT Current every day smoker co mpleted Current every day smoker [facility] ([facility]) Smoking 07/21/2020 12:00:00 AM EDT Current every day smoker co mpleted Current every day smoker [facility] ([facility]) Smoking 06/30/2020 12:00:00 AM EDT Current every day smoker co mpleted Current every day smoker [facility] ([facility]) Smoking 06/20/2020 12:00:00 AM EDT Current every day smoker co mpleted Current every day smoker [facility] ([facility]) Smoking 06/16/2020 12:00:00 AM EDT Current every day smoker co mpleted Current every day smoker [facility] ([facility]) Smoking 06/12/2020 12:00:00 AM EDT Current every day smoker co mpleted Current every day smoker [facility] ([facility]) Alcohol intake 06/09/2020 12:00:00 AM EDT Lifetime non-drinker (finding) completed Lifetime non-drinker (finding) [facility] Tobacco use and exposure 06/09/2020 12:00:00 AM EDT Never used co mpleted Never used [facility] Cigarettes smoked current (pack per day) - Reported 06/10/19 12:00:00 AM EDT UNK completed [facility] Smoking 06/09/2020 12:00:00 AM EDT Current every day smoker co mpleted Current every day smoker [facility] Smoking 05/05/2020 12:00:00 AM EST Current Smoker completed Curre nt Smoker eCW1 ([facility]) Smoking 02/16/2020 12:00:00 AM EST Current every day smoker co mpleted Current every day smoker [facility] ([facility]) Smoking 02/15/2020 12:00:00 AM EST Current every day smoker co mpleted Current every day smoker [facility] ([facility]) Smoking 01/22/2020 12:00:00 AM EST Current every day smoker co mpleted Current every day smoker [facility] ([facility]) Smoking 01/18/2020 12:00:00 AM EST Current every day smoker co mpleted Current every day smoker [facility] ([facility]) Smoking 01/15/2020 12:00:00 AM EST Current every day smoker co mpleted Current every day smoker [facility] ([facility]) Smoking 12/22/2019 12:00:00 AM EDT Current every day smoker co mpleted Current every day smoker [facility] ([facility]) Alcohol intake 12/10/2019 12:00:00 AM EDT Lifetime non-drinker (finding) completed Lifetime non-drinker (finding) [facility] Smoking 12/07/2019 12:00:00 AM EDT Current every day smoker co mpleted Current every day smoker [facility] ([facility]) Smoking 12/04/2019 12:00:00 AM EDT Current every day smoker co mpleted Current every day smoker [facility] ([facility]) Vital Signs ID Date Data Source UNK Name Value Range Interpretation Code Description Data Source(s) Body height 62 [in_i] 62 [in_i] eCW1 ([facility]) Body weight 126 [lb_av] 126 [lb_av] eCW1 ([facility]) Body mass index (BMI) [Ratio] 23.04 kg/m2 23.04 kg/m2 eCW1 ([facility]) Body temperature 98.0 [degF] 98.0 [degF] eCW1 ( [facility]) Heart rate 106 /min 106 /min eCW1 ([facility]) Respiratory rate 18 /min 18 /min eCW1 ([facility]) Oxygen saturation in Arterial blood by Pulse oximetry 98 % 98 % eCW1 ([facility]) Body height 62 [in_i] 62 [in_i] eCW1 ([facility]) Body temperature 99.1 [degF] 99.1 [degF] eCW1 ( [facility]) Body weight 124.8 [lb_av] 124.8 [lb_av] eCW1 ([facility]) Heart rate 97 /min 97 /min eCW1 ([facility]) Respiratory rate 18 /min 18 /min eCW1 ([facility]) Body mass index (BMI) [Ratio] 22.82 kg/m2 22.82 kg/m2 eCW1 ([facility]) Oxygen saturation in Arterial blood by Pulse oximetry 98 % 98 % eCW1 ([facility]) Body temperature 98.0 [degF] 98.0 [degF] eCW1 ( [facility]) Body height 62 [in_i] 62 [in_i] eCW1 ([facility]) Body weight 124.6 [lb_av] 124.6 [lb_av] eCW1 ([facility]) Body mass index (BMI) [Ratio] 22.79 kg/m2 22.79 kg/m2 eCW1 ([facility]) Heart rate 92 /min 92 /min eCW1 ([facility]) Respiratory rate 18 /min 18 /min eCW1 ([facility]) Oxygen saturation in Arterial blood by Pulse oximetry 98 % 98 % eCW1 ([facility]) Body weight 126.6 [lb_av] 126.6 [lb_av] eCW1 ([facility]) Body height 61 [in_i] 61 [in_i] eCW1 ([facility]) Body mass index (BMI) [Ratio] 23.92 kg/m2 23.92 kg/m2 eCW1 ([facility]) Systolic blood pressure 108 mm[Hg] 108 mm[Hg] e CW1 ([facility]) Diastolic blood pressure 78 mm[Hg] 78 mm[Hg] eCW1 ([facility]) Body height 0.00 in Normal (applies to non-numeric resu lts) 0.00 in [facility] Body weight Measured 0.00 lbs Normal (applies to n on-numeric results) 0.00 lbs [facility] ([facility]) Body mass index (BMI) [Ratio] 0.00 kg/m2 No rmal (applies to non-numeric results) 0.00 kg/m2 [facility] ([facility]) Systolic blood pressure 0 mm[Hg] Normal (applies t o non-numeric results) 0 mm[Hg] [facility] ([facility]) Diastolic blood pressure 0 mm[Hg] Normal (applies to non-numeric results) 0 mm[Hg] [facility] ([facility]) Body height 0.00 in Normal (applies to non-numeric resu lts) 0.00 in [facility] ([facility]) Body weight Measured 0.00 lbs Normal (applies to n on-numeric results) 0.00 lbs [facility] ([facility]) Body mass index (BMI) [Ratio] 0.00 kg/m2 No rmal (applies to non-numeric results) 0.00 kg/m2 [facility] ([facility]) Systolic blood pressure 0 mm[Hg] Normal (applies t o non-numeric results) 0 mm[Hg] [facility] ([facility]) Diastolic blood pressure 0 mm[Hg] Normal (applies to non-numeric results) 0 mm[Hg] [facility] ([facility]) Systolic blood pressure 112 mm[Hg] 112 mm[Hg] e CW1 ([facility]) Body weight 125 [lb_av] 125 [lb_av] eCW1 ([facility] Body mass index (BMI) [Ratio] 23.62 kg/m2 23.62 kg/m2 [facility] ([facility]) Diastolic blood pressure 76 mm[Hg] 76 mm[Hg] eCW1 ([facility]) Body weight 56.7 kg 56.7 kg eCW1 ([facility]) Body height 61 [in_i] 61 [in_i] eCW1 ([facility]) Body height 0.00 in Normal (applies to non-numeric resu lts) 0.00 in [facility] ([facility]) Body weight Measured 0.00 lbs Normal (applies to n on-numeric results) 0.00 lbs [facility] ([facility]) Body mass index (BMI) [Ratio] 0.00 kg/m2 No rmal (applies to non-numeric results) 0.00 kg/m2 [facility] ([facility]) Systolic blood pressure 0 mm[Hg] Normal (applies t o non-numeric results) 0 mm[Hg] [facility] ([facility]) Diastolic blood pressure 0 mm[Hg] Normal (applies to non-numeric results) 0 mm[Hg] [facility] ([facility]) Body height 0.00 in Normal (applies to non-numeric resu lts) 0.00 in [facility] ([facility]) Body weight Measured 0.00 lbs Normal (applies to n on-numeric results) 0.00 lbs [facility] ([facility]) Body mass index (BMI) [Ratio] 0.00 kg/m2 No rmal (applies to non-numeric results) 0.00 kg/m2 [facility] ([facility]) Systolic blood pressure 0 mm[Hg] Normal (applies t o non-numeric results) 0 mm[Hg] [facility] ([facility]) Diastolic blood pressure 0 mm[Hg] Normal (applies to non-numeric results) 0 mm[Hg] [facility] ([facility]) Systolic blood pressure 0 mm[Hg] Normal (applies t o non-numeric results) 0 mm[Hg] [facility] ([facility]) Diastolic blood pressure 0 mm[Hg] Normal (applies to non-numeric results) 0 mm[Hg] [facility] ([facility]) Body height 0.00 in Normal (applies to non-numeric resu lts) 0.00 in [facility] ([facility]) Body weight Measured 0.00 lbs Normal (applies to n on-numeric results) 0.00 lbs [facility] ([facility]) Body mass index (BMI) [Ratio] 0.00 kg/m2 No rmal (applies to non-numeric results) 0.00 kg/m2 [facility] ([facility]) ID Date Data Source [id number] 06/09/2020 02:09:13 PM [facility] Name Value Range Interpretation Code Description Data Source(s) WEIGHT RECORDED 120 lb 120 lb [facility] Body height Measured 64 in 64 in [facility] ID Date Data Source [id number] 12/10/2019 03:46:51 PM [facility] Name Value Range Interpretation Code Description Data Source(s) WEIGHT RECORDED 130 lb 130 lb [facility] Body height Measured 64 in 64 in [facility] Patient Treatment Plan of Care Planned Activity Planned Date Details Description Data Source (s) Mupirocin 0.02 MG/MG Topical Ointment 12/06/2020 12:00:00 AM EDT eCW1 ([facility]) Tamoxifen 10 MG Oral Tablet 06/09/2020 12:00:00 AM [facility] Fluconazole 150 MG Oral Tablet 03/01/2020 12:00:00 AM EST eCW1 ([facility]) Tamoxifen 10 MG Oral Tablet 12/10/2019 12:00:00 AM [facility] Tamoxifen 10 MG Oral Tablet 09/01/2019 12:00:00 AM [facility]
--- OUTSIDE RECORDS SUMMARY | 2021-01-18 17:32 | CCD ---
Author Kathy Meadows Organization Unknown Address [address] [address] Phone Care Team Providers Care Sweatband Perforator Name Role Phone Moisés Cruz PCP Allergies, Adverse Reactions, Alerts No Data in Section Problem List Concept Problem Description Status Start Date Created Date Resolv ed Date Snomed Code F41.9 Unspecified Anxiety Disorder Active 10/28/2020 F31.9 Unspecified Bipolar and Related Disorder Active 10/28/2020 Medications Rx Norm Medication Route Route Concept Start Date Stop Date Dosage Jono quency Duration Formula Strength Dosage Form Dosage Form Code Dosage Description Medication Id Account Npid Author First Name Author Last Name Taxonomy Code Taxonomy Desc Phone Number [id number] lamotrigine 08/09/2020 90 200 mg tablet [id number] Woodrow Wilson [id number] Nurse Practitioner [id number] [id number] quetiapine 08/18/2020 30 100 mg tablet [id number] [id number] Woodrow Wilson [id number] Nurse Practitioner [id number] [phone] Social History Social History Element Description Concept Effective Date Smoking Status Current every day smoker [id number] Immunizations No Data in Section Vital Signs No Data in Section Procedures Date Concept Id Description Targeted Site Concept Targeted Site Concept Type 10/26/2020 42901 Extended Individual Psychotherapy - 45 min CPT Patient has no history of implantable de vices Encounters Encounter Start Date End Date Encounter Type Description Diagnosis Di agnosis Desc Location Author First Name Author Last Name Npid Taxonomy Cod e Taxonomy Desc Phone Number Location Addr1 Location Addr2 Location [facility] Location Sta Location [facility] [id number] 10/26/2020 10/26/2020 40696 Extended Individual Psych otherapy - 45 min F41.9 Anxiety Disorder, Unspecified [facility] Anthony Curiel [phone] [id number] House Parent [phone] [address] [address] Plan of Treatment No Data in Section Lab Results No Data in Section Instructions No Data in Section Insurance Providers Insurance Id Policy Effective Date Policy Thru Date Company Jaun leal [id number] 2020 [employer] [place] [facility]
--- OUTSIDE RECORDS SUMMARY | 2021-01-18 17:32 | CCD ---
Author Author [facility] Organization [facility] Address Unknown Phone Unavailable Care Team Providers Care Yard Labor Supervisor Name Role Phone Miya Hayden Unavailable PROBLEMS Type Condition ICD9-CM Code [id number] Code Onset Dates Condition S tatus W/U Status Risk SNOMED Code Notes Problem Cigarette nicotine dependence F17.210 Active confir med 310605653 Problem History of psychiatric treatment Z92.89 Active confirmed 966449311 Problem Memory changes R41.3 Active confirmed 72124 7006 Problem Nonintractable episodic headache, unspecified headache typ e R51 Active confirmed 47253110 Problem Abnormal blood level of copper R79.0 Active confir med 854840584 Problem Pain of left breast N64.4 Active confirmed 09156311297488390 Problem Bipolar affective disorder, remission status unspecified F31.9 Active confirmed 57218097 Problem Screening for lipid disorders Z13.220 Active confir med 874427548 Problem Hypertriglyceridemia E78.1 Active confirmed 118869356 Problem Bilateral carpal tunnel syndrome G56.03 Active confirmed 78182837355891098 Problem Scabies B86 Active confirmed 705931040 Problem Vitamin D deficiency E55.9 Active confirmed 30820740 Problem Rash R21 Active confirmed 816789560 Problem Status post partial hysterectomy Z90.711 Active confirmed 625731685 Problem Other migraine without status migrainosus, intractable G43.819 Active confirmed 450619627 Problem History of partial hysterectomy Z90.711 Active confirmed 215069824 Problem Tobacco dependence F17.200 Active confirmed 90637954 Problem Bruising T14.8XXA Active confirmed 865948475 ALLERGIES Allergen (clinical drug ingredient) Drug/Non Drug Allergy do cumented on EMR Reaction Allergy Type Onset Date Status phegran swelling Non Drug Allergy Active reglan swelling Non Drug Allergy Active ENCOUNTERS from 1988 to 2020-12-09 Encounter Location Date Provider Diagnosis [address] [address] Dec, Miya Hayden Localized infection of skin L08.9 IMMUNIZATIONS Vaccine Route Administration Date Status TDAP [...] REASON FOR REFERRAL No Information VITAL SIGNS No information MEDICATIONS Medication SIG (Take, Route, Frequency, Duration) Notes Start Da te End Date Status Drisdol 59724 UNIT 1 capsule Orally once per week for 90 days Vi tamin D 2 Jun, Not-Taking Tamoxifen Citrate 10 MG 1 tablet Orally Once a day Active Mupirocin 2 % 1 application Externally Three times a day for 1 0 day(s) Nov, Active Vraylar 1.5 MG 1 capsule Orally for 30 day(s) Active SEROquel 200 MG 1 tablet Orally Once a day Active Gabapentin 100 MG 2 tablets Orally twivce daily 300mg at night time Active lamoTRIgine 150 MG 2 tablets Orally Once a day Active Bactrim DS 800-160 MG 1 tablet Orally Twice a day for 5 days Active Nicorette 2 MG 1 lozenge as needed Mouth/Throat 10 time(s) a da y for 14 days Active PROCEDURES No Information RESULTS No Results REASON FOR VISIT infected earring MEDICAL (GENERAL) HISTORY Type Description Date Medical [...] Notes Treatment Notes Treatm ent Clinical Notes 01 Oct, 2021 Localized infection of skin (ICD-10 - L08.9) PLAN OF TREATMENT Medication Medication Name Sig Start Date Stop Date Bactrim DS 800-160 MG 1 tablet Orally Twice a day for 5 days Insurance Providers Payer Name Payer Address Payer Phone Insured Name Patient Relati onship to Insured Coverage Start Date Coverage End Date [employer] [facility] - [employer] MEDICAID [address] [facility] [id number] Kathy Lemons self
--- OUTSIDE RECORDS SUMMARY | 2021-01-18 17:32 | CCD ---
Author Author Kathy Cruz Organization Unknown Address [address] [address] Phone Care Team Providers Care Performance Improvement Coordinator Name Role Phone Moisés Cruz PCP Allergies, Adverse Reactions, Alerts No Data in Section Problem List Concept Problem Description Status Start Date Created Date Resolv ed Date Snomed Code F41.9 Unspecified Anxiety Disorder Active 11/25/2020 F31.9 Unspecified Bipolar and Related Disorder Active 11/25/2020 Medications Rx Norm Medication Route Route Concept Start Date Stop Date Dosage Jono quency Duration Formula Strength Dosage Form Dosage Form Code Dosage Description Medication Id Account Npid Author First Name Author Last Name Taxonomy Code Taxonomy Desc Phone Number [phone] lamotrigine 08/09/2020 90 200 mg tablet [phone] Woodrow Wilson [id number] Nurse Practitioner [phone] Vraylar by mouth [id number] 11/18/2020 02/14/2021 once a day 30 1 .5 mg capsule 10714 [id number] [phone] Woodrow Wilson [id number] Nurse Brandi carcamo [phone] quetiapine by mouth [id number] 11/17/2020 01/16/2021 at bedtime 30 200 mg tablet 26118 [phone] Woodrow Wilson [id number] Nurse Pr actitioner [phone] 708091 gabapentin by mouth [id number] 11/17/2020 01/16/2021 at bedtime 30 300 mg capsule 89695 [id number] [id number] Woodrow Wilson [id number] Nurse Brandi carcamo [phone] 823759 gabapentin 11/18/2020 100 mg capsule 40713 775130 [id number] Woodrow Wilson [id number] Nurse Practitioner [phone] Social History Social History Element Description Concept Effective Date Smoking Status Current every day smoker [id number] 8469838 7 Immunizations No Data in Section Vital Signs No Data in Section Procedures Date Concept Id Description Targeted Site Concept Targeted Site Concept Type 11/23/2020 08361 Extended Individual Psychotherapy - 45 min CPT Patient has no history of implantable de vices Encounters Encounter Start Date End Date Encounter Type Description Diagnosis Di agnosis Desc Location Author First Name Author Last Name Npid Taxonomy Cod e Taxonomy Desc Phone Number Location Addr1 Location Addr2 Location [facility] Location [facility] Location [facility] [id number] 11/23/2020 11/23/2020 16334 Extended Individual Psych otherapy - 45 min F41.9 Anxiety Disorder, Unspecified [facility] [id number] [id number] Food Science Professor [phone] [address] [address] Plan of Treatment No Data in Section Lab Results No Data in Section Instructions No Data in Section Insurance Providers Insurance Id Policy Effective Date Policy Thru Date Company N mel [id number] 2020 [employer]
--- OUTSIDE RECORDS SUMMARY | 2021-01-18 17:32 | CCD ---
Author Author Kathy Wilsonry Organization Unknown Address [address] [address] Phone Care Team Providers Care Tectonophysicist Name Role Phone Lorie Wilsonchary PCP Allergies, Adverse Reactions, Alerts No Data in Section Problem List Concept Problem Description Status Start Date Created Date Resolv ed Date Snomed Code F41.9 Unspecified Anxiety Disorder Active 12/20/2020 F31.9 Unspecified Bipolar and Related Disorder Active 12/20/2020 Medications Rx Norm Medication Route Route Concept Start Date Stop Date Dosage Jono quency Duration Formula Strength Dosage Form Dosage Form Code Dosage Description Medication Id Account Npid Author First Name Author Last Name Taxonomy Code Taxonomy Desc Phone Number [phone] lamotrigine 08/09/2020 90 200 mg tablet 30430 [phone] Woodrow Wilson [id number] Nurse Practitioner [phone] 430951 gabapentin 11/18/2020 100 mg capsule 09778 [phone] Woodrow Wilson [id number] Nurse Practitioner [phone] [phone] 038298 quetiapine 12/09/2020 90 200 mg tablet 09409 120890 [phone] Woodrow Wilson [id number] Nurse Practitioner [phone] 287202 gabapentin by mouth [id number] 11/17/2020 01/16/2021 at bedtime 30 300 mg capsule 78061 246376 [id number] Woodrow Wilson [id number] Nurse Brandi carcamo [phone] 6240840 Vraylar by mouth [id number] 11/18/2020 02/14/2021 once a day 30 1 .5 mg capsule 60670 785315 [id number] Woodrow Wilson [id number] Nurse Brandi carcamo [phone] Social History Social History Element Description Concept Effective Date Smoking Status Current every day smoker 554320630 9629328 2 Immunizations No Data in Section Vital Signs No Data in Section Procedures Date Concept Id Description Targeted Site Concept Targeted Site Concept Type 12/20/2020 [facility] E/M Lvl 2--Est pt CPT Patient has no history of implantable de vices Encounters Encounter Start Date End Date Encounter Type Description Diagnosis Di agnosis Desc Location Author First Name Author Last Name Npid Taxonomy Cod e Taxonomy Desc Phone Number Location Addr1 Location Addr2 Location [facility] Location Sta te Location [facility] [id number] 12/20/2020 12/20/2020 [facility] E/M Lvl 2--Est p t F41.9 Anxiety Disorder, Unspecified [facility] [phone] [id number] Nurse Practitioner [phone] [address] [address] Plan of Treatment No Data in Section Lab Results No Data in Section Instructions No Data in Section Functional Cognitive Status No Data in Section Insurance Providers Insurance Id Policy Effective Date Policy Thru Date [employer] Jaun leal [id number] 2020 [employer]
[2021-01-18 23:06] LABS: BASO # 0.1 10^3/uL (0.0-0.2); BASO % 0.5 % (0.0-1.0); EOS # 0.1 10^3/uL (0.0-0.5); EOS % 1.2 % (0.0-3.0); HEMATOCRIT 43.3 % (36.0-47.0); HEMOGLOBIN 14.5 g/dl (12.0-15.5); LYMPH # 4.8 10^3/uL (1.5-5.0); LYMPH % 52.8 % (24.0-44.0); MEAN CORPUSCULAR HGB CONC 33.5 g/dl (32.0-36.5); MEAN CORPUSCULAR VOLUME 92.7 fl (80.0-96.0); MONO # 0.5 10^3/uL (0.0-0.8); MONO % 5.9 % (2.0-8.0); NEUTROPHILS # 3.6 10^3/uL (1.5-8.5); NEUTROPHILS % 39.3 % (36.0-66.0); PLATELET COUNT, AUTOMATED 276 10^3/uL (150-450); RED BLOOD COUNT 4.67 10^6/uL (4.00-5.40); WHITE BLOOD COUNT 9.2 10^3/uL (4.0-10.0)
[2021-01-18] MEDS ORDERED: ONDANSETRON 4MG/2ML VIAL IV ONE (23:15)
[2021-01-18] MEDS ORDERED: MORPHINE 4 MG/ML 1ML VIAL/SYRINGE (J2270) IV ONE (23:15)
[2021-01-18] MEDS ORDERED: ISOVUE-370 76% 100ML VIAL As Ordered ONE (23:18)
[2021-01-18 23:25] LABS: ALBUMIN 4.4 GM/DL (3.2-5.2); ALT/SGPT 17 U/L (12-78); BILIRUBIN,DIRECT 0.2 MG/DL (0.0-0.2); BILIRUBIN,TOTAL 0.5 MG/DL (0.2-1.0); BLOOD UREA NITROGEN 11 MG/DL (7-18); CALCIUM LEVEL 9.1 MG/DL (8.5-10.1); CARBON DIOXIDE LEVEL 23 MEQ/L (21-32); CHLORIDE LEVEL 109 MEQ/L (98-107); CREATININE FOR GFR 1.02 MG/DL (0.55-1.30); GLOMERULAR FILTRATION RATE > 60.0 (>60); GLUCOSE, FASTING 87 MG/DL (70-100); LIPASE 73 U/L (73-393); POTASSIUM SERUM 3.7 MEQ/L (3.5-5.1); SODIUM LEVEL 141 MEQ/L (136-145); TOTAL PROTEIN 7.7 GM/DL (6.4-8.2)
--- OUTSIDE RECORDS SUMMARY | 2021-01-18 23:32 | CCD ---
Author Author [facility] Organization [facility] Address Unknown Phone Unavailable Care Team Providers Care Learning And Development Consultant Name Role Phone Rebecca Danielle Unavailable Unavailable PROBLEMS Type Condition ICD9-CM Code EJF08-NR Code Onset Dates Condition S tatus W/U Status Risk SNOMED Code Notes Problem Cigarette nicotine dependence F17.210 Active confir med 666063161 Problem History of psychiatric treatment Z92.89 Active confirmed 135239634 Problem Memory changes R41.3 Active confirmed 73333 7006 Problem Nonintractable episodic headache, unspecified headache typ e R51 Active confirmed 71260900 Problem Abnormal blood level of copper R79.0 Active confir med 419118844 Problem Pain of left breast N64.4 Active confirmed 55508428371205858 Problem Bipolar affective disorder, remission status unspecified F31.9 Active confirmed 38550945 Problem Screening for lipid disorders Z13.220 Active confir med 388324176 Problem Hypertriglyceridemia E78.1 Active confirmed 001573364 Problem Bilateral carpal tunnel syndrome G56.03 Active confirmed 07762879317308246 Problem Scabies B86 Active confirmed 511686309 Problem Vitamin D deficiency E55.9 Active confirmed 50044247 Problem Rash R21 Active confirmed 252142703 Problem Status post partial hysterectomy Z90.711 Active confirmed 972654500 Problem Other migraine without status migrainosus, intractable G43.819 Active confirmed 438231644 Problem History of partial hysterectomy Z90.711 Active confirmed 436153320 Problem Tobacco dependence F17.200 Active confirmed 09622795 Problem Bruising T14.8XXA Active confirmed 811953086 ALLERGIES Allergen (clinical drug ingredient) Drug/Non Drug Allergy do cumented on EMR Reaction Allergy Type Onset Date Status phegran swelling Non Drug Allergy Active reglan swelling Non Drug Allergy Active ENCOUNTERS from 1988 to 2020-11-09 Encounter Location [place] [address] Oct, Rebecca Danielle Acute left flank pain R10.9 IMMUNIZATIONS Vaccine Route Administration Date Status TDAP [...] No Information VITAL SIGNS Height 62 in Oct, Weight 124.8 lbs Oct, BMI 22.82 kg/m2 Oct, Temperature 99.1 degrees Fahrenheit Oct, Heart Rate 97 /min Oct, Respiratory Rate 18 /min Oct, Oximetry 98 % Oct, Blood pressure systolic 122 mmHg Oct, Blood pressure diastolic 74 mmHg Oct, MEDICATIONS Medication SIG (Take, Route, Frequency, Duration) Notes Start Da te End Date Status Tamoxifen Citrate 10 MG 1 tablet Orally Once a day Active Vraylar 1.5 MG 1 capsule Orally for 30 day(s) Active Gabapentin 100 MG 2 tablets Orally twivce daily Active lamoTRIgine 150 MG 2 tablets Orally Once a day Active SEROquel 100 MG 1 and a half tablets Orally Once a day Active Drisdol 85652 UNIT 1 capsule Orally once per week for 90 days Vi tamin D 2 Jun, Not-Taking Nicorette 2 MG 1 lozenge as needed Mouth/Throat 10 time(s) a da y for 14 days Not-Taking PROCEDURES No Information RESULTS Component Value Reference Range URINALYSIS Reviewed date:11/04/2020 09:17:37 Interpretation: Performing Lab: URINE COLOR. YELLOW URINE APPEARANCE SLIGHTY CLOUDY URINE GLUCOSE (UA) NEGATIVE NEGATIVE URINE BILIRUBIN NEGATIVE NEGATIVE URINE KETONE NEGATIVE NEGATIVE SPECIFIC GRAVITY,URINE 1.025 1.005-1.030 URINE BLOOD NEGATIVE NEGATIVE PH,URINE 5.0 5.0-9.0 URINE PROTEIN NEGATIVE NEGATIVE URINE UROBILINOGEN NORMAL(0.2-1) 0-1 URINE NITRATE NEGATIVE NEGATIVE URINE LEUKOCYTE ESTERASE NEGATIVE NEGATIVE REASON FOR VISIT Possible UTI MEDICAL (GENERAL) HISTORY Type Description Date Medical [...] Notes Treatment Notes Treatm ent Clinical Notes Oct, Acute left flank pain (ICD-10 - R10.9) Urinalysis not indicative of UTI and with no hematuria. Conservative management advised for possible muscle strain- rest, prn NSAID, adequate hydration. Pt to f/u if with any worsening symptoms, ER precautions discussed. Pt v/u and agreeable. Flank Pain: Care Instructions material was printed Oct, Other 11/08/20 @ 0820: Pt advised of negative urine culture results. Time spent with pt 15 minutes. PLAN OF TREATMENT Treatment Notes Assessment Notes Clinical Notes Acute left flank pain Urinalysis not indicative of UTI and with no hematuria. Conservative management advised for possible muscle strain- rest, prn NSAID, adequate hydration. Pt to f/u if with any worsening symptoms, ER precautions discussed. Pt v/u and agreeable.Flank Pain: Care Instructions material was printed Treatment Notes Test Name Order Date URINE CULTURE, ROUTINE 2020-11-04 Next Appt Details prn Reason: Provider Name:Miya Hayden, 03:40:00 PM, [address] [place] [address], [phone], Insurance Providers Payer Name Payer Address Payer Phone Insured Name Patient Relati onship to Insured Coverage Start Date Coverage End Date [facility] [employer] MEDICAID [address] [facility] [id number] Kathy Lemons
--- OUTSIDE RECORDS SUMMARY | 2021-01-18 23:33 | CCD ---
Author Author [facility] Organization [facility] Address Unknown Phone Unavailable Care Team Providers Care [place] Erector Name Role Phone Lolis, Hermila Fernandez KITCHENHAND-C Unavailable Unavailabl e [facility], [facility] Skinny Rebecca KITCHENHAND-C Unavailable Unavailabl e [place], [facility] Rebecca CRUZP-C Unavailable Unavailabl e [place], [facility] CRUZP-C Unavailable Unavailabl e [place], [facility] Rebecca CRUZP-C Unavailable Unavailabl e L[place], [facility] Rebecca CRUZP-C Unavailable Unavailabl e [place], [facility] Skinny CRUZP-C Unavailable Unavailabl e L[place], [facility] Skinny Fernandez KITCHENHAND-C Unavailable Unavailabl e Lolis, [facility] Skinny Rebecca KITCHENHAND-C Unavailable Unavailabl e L[place], [facility] Skinny Rebecca KITCHENHAND-C Unavailable Unavailabl e Lolis, [facility] CRUZP-C Unavailable Unavailabl e Lolis, [facility] Fernandez KITCHENHAND-C Unavailable Unavailabl e Lolis, [facility] Skinny Fernandez KITCHENHAND-C Unavailable Unavailabl e Lolis, [facility] Skinny CRUZP-C Unavailable Unavailabl e Lolis, [facility] W Rebecca KITCHENHAND-C Unavailable Unavailabl e Lolis, Hermila Ninae KITCHENHAND-C Unavailable Unavailabl e Lolis, Hermila Fernandez KITCHENHAND-C Unavailable Unavailabl e Lolis, Hermila Ninae KITCHENHAND-C Unavailable Unavailabl e Lolis, Hermila Caroyce KITCHENHAND-C Unavailable Unavailabl e Lolis, Hermila Caroyce KITCHENHAND-C Unavailable Unavailabl e Lolis, Hermila Caroyce KITCHENHAND-C Unavailable Unavailabl e Lolis, Hermila Caroyce KITCHENHAND-C Unavailable Unavailabl e Lolis, Hermila Caroyce KITCHENHAND-C Unavailable Unavailabl e Lolis, Hermila Caroyce KITCHENHAND-C Unavailable Unavailabl e Lolis, Hermila Caroyce KITCHENHAND-C Unavailable Unavailabl e Lolis, Hermila Ninae KITCHENHAND-C Unavailable Unavailabl e Lolis, Hermila Ninae KITCHENHAND-C Unavailable Unavailabl e Lolis, Hermila Caroyce KITCHENHAND-C Unavailable Unavailabl e Lolis, Hermila Fernandez KITCHENHAND-C Unavailable Unavailabl e Lolis, Hermila Fernandez KITCHENHAND-C Unavailable Unavailabl e Lolis, Hermila Ninae KITCHENHAND-C Unavailable Unavailabl e Lolis, Hermila Caroyce KITCHENHAND-C Unavailable Unavailabl e Hernesto BOWENS MD Unavailable [...] Hernesto BOWENS MD Unavailable Unavailable Ryan Wilson [employer] TE[employer]ER Unavailable Unavailable Ryan Wilson [employer] SOC[employer]UDIES TEACHER Unavailable Unavailable Ryan Wilson [employer]UDIES TEACHER Unavailable [facility] Unavailable Unavailable Karly [...] Clint, Karly Wooten MD Unavailable Unavailable Clint, Kalry Wooten MD Unavailable Unavailable Clint, Karly Wooten [...] MD Unavailable Unavailable Moisés Cruz Unavailable Clark Curzto Unavailable Bailey, A Lisa PA Unavailable Unavailable [...] [place], Lisa Unavailable Lolis, Hermila Babb Rebecca KITCHENHAND-C Unavailable Unavailabl e Lolis, Hermila Babb Rebecca KITCHENHAND-C Unavailable Unavailabl e Lolis, Hermila Babb Rebecca KITCHENHAND-C Unavailable Unavailabl e Lolis, Hermila Babb Rebecca KITCHENHAND-C Unavailable Unavailabl e Lolis, Hermila Babb Rebecca KITCHENHAND-C Unavailable Unavailabl e Lolis, Hermila W Rebecca KITCHENHAND-C Unavailable Unavailabl e Lolis, Hermila W Rebecca KITCHENHAND-C Unavailable Unavailabl e Lolis, Hermila Babb Rebecca KITCHENHAND-C Unavailable Unavailabl e Lolis, Hermila Babb Rebecca KITCHENHAND-C Unavailable Unavailabl e Lolis, Hermila W Rebecca KITCHENHAND-C Unavailable Unavailabl e Lolis, Hermila W Rebecca KITCHENHAND-C Unavailable Unavailabl e Lolis, Hermila W Rebecca KITCHENHAND-C Unavailable Unavailabl e Lolis, Hermila W Rebecca KITCHENHAND-C Unavailable Unavailabl e Lolis, Hermila W Rebecca KITCHENHAND-C Unavailable Unavailabl e Lolis, Hermila Babb Rebecca KITCHENHAND-C Unavailable Unavailabl e Lolis, Hermila W Rebecca KITCHENHAND-C Unavailable Unavailabl e Lolis, Hermila W Rebecca KITCHENHAND-C Unavailable Unavailabl e Lolis, Hermila Babb Rebecca KITCHENHAND-C Unavailable Unavailabl e Lolis, Hermila Babb Rebecca KITCHENHAND-C Unavailable Unavailabl e Lolis, Hermila Babb Rebecca KITCHENHAND-C Unavailable Unavailabl e Lolis, Hermila Babb Rebecca KITCHENHAND-C Unavailable Unavailabl e Lolis, Hermila Caroyce KITCHENHAND-C Unavailable Unavailabl e Lolis, Hermila Caroyce KITCHENHAND-C Unavailable Unavailabl e Lolis, Hermila W Rebecca KITCHENHAND-C Unavailable Unavailabl e Lolis, Hermila W Rebecca KITCHENHAND-C Unavailable Unavailabl e Lolis, Hermila W Rebecca KITCHENHAND-C Unavailable Unavailabl e Lolis, Hermila Babb Rebecca KITCHENHAND-C Unavailable Unavailabl e Lolis, Hermila Caroyce KITCHENHAND-C Unavailable Unavailabl e Lolis, Hermila Caroyce KITCHENHAND-C Unavailable Unavailabl e Lolis, Hermila Caroyce KITCHENHAND-C Unavailable Unavailabl e Lolis, Hermila Caroyce KITCHENHAND-C Unavailable Unavailabl e Lolis, Hermila Babb Rebecca KITCHENHAND-C Unavailable Unavailabl e Jackelyn, A Miya KITCHENHAND Unavailable Unavailable Jackelyn, A Miya KITCHENHAND Unavailable Unavailable Jakcelyn, A Miya KITCHENHAND Unavailable Unavailable Jackelyn, A Miya KITCHENHAND Unavailable Unavailable Jackelyn, A Miya KITCHENHAND Unavailable Unavailable Jackelyn, A Miya KITCHENHAND Unavailable Unavailable Jackelyn, A Miya KITCHENHAND Unavailable Unavailable Jackelyn, A Miya KITCHENHAND Unavailable Unavailable Jackelyn, A Miya KITCHENHAND Unavailable Unavailable Jackelyn, A Miya KITCHENHAND Unavailable Unavailable Jackelyn, A Miya KITCHENHAND Unavailable Unavailable Jackelyn, A Miya KITCHENHAND Unavailable Unavailable Jackelyn, A Miya KITCHENHAND Unavailable Unavailable Jackelyn, A Miya KITCHENHAND Unavailable Unavailable Jackelyn, A Miya KITCHENHAND Unavailable Unavailable Jackelyn, A Miya KITCHENHAND Unavailable Unavailable Jackelyn, A Miya KITCHENHAND Unavailable Unavailable Jackelyn, A Miya KITCHENHAND Unavailable Unavailable Jackelyn, A Miya KITCHENHAND Unavailable Unavailable Jackelyn, A Miya KITCHENHAND Unavailable Unavailable Jackelyn, A Miya KITCHENHAND Unavailable Unavailable Jackelyn, A Miya KITCHENHAND Unavailable Unavailable Jackelyn, A Miya KITCHENHAND Unavailable Unavailable Jackelyn, A Miya KITCHENHAND Unavailable Unavailable Jackelyn, A Miya KITCHENHAND Unavailable Unavailable Jackelyn, A Miya KITCHENHAND Unavailable Unavailable Jackelyn, A Miya KITCHENHAND Unavailable Unavailable Jackelyn, A Miya KITCHENHAND Unavailable Unavailable Jackelyn, A Miya KITCHENHAND Unavailable Unavailable Jackelyn, A Miya KITCHENHAND Unavailable Unavailable Jackelyn, A Miya KITCHENHAND Unavailable Unavailable Jackelyn, A Miya KITCHENHAND Unavailable Unavailable Jackelyn, A Miya KITCHENHAND Unavailable Unavailable Jackelyn, A Miya KITCHENHAND Unavailable Unavailable Jackelyn, A Miya KITCHENHAND Unavailable Unavailable Jackelyn, A Miya KITCHENHAND Unavailable Unavailable Jackelyn, A Miya KITCHENHAND Unavailable Unavailable Jackelyn, A Miya KITCHENHAND Unavailable Unavailable Jakcelyn, A Miya KITCHENHAND Unavailable Unavailable Jackelyn, A Miya KITCHENHAND Unavailable Unavailable Jackelyn, A Miya KITCHENHAND Unavailable Unavailable Jackelyn, A Miya KITCHENHAND Unavailable Unavailable Jackelyn, A Miya KITCHENHAND Unavailable Unavailable Jackelyn, A Miya KITCHENHAND Unavailable Unavailable Jackelyn, A Miya KITCHENHAND Unavailable Unavailable Jackelyn, A Miya KITCHENHAND Unavailable Unavailable Jackelyn, A Miya KITCHENHAND Unavailable Unavailable Jackelyn, A Miya KITCHENHAND Unavailable Unavailable Jackelyn, A Miya KITCHENHAND Unavailable Unavailable Jackelyn, A Miya KITCHENHAND Unavailable Unavailable Jackelyn, A Miya KITCHENHAND Unavailable Unavailable Jackelyn, A Miya KITCHENHAND Unavailable Unavailable Jackelyn, A Miya KITCHENHAND Unavailable Unavailable Jackelyn, A Miya KITCHENHAND Unavailable Unavailable Sherrell Sapp Unavailable Re-disclosure Warning [...] is protected by Article 27-F of the [facility] Public Health law. If you continue you may have access to information: Regarding HIV / AIDS; Provided by facilities licensed or operated by the [facility] Office of Mental Health; or Provided by the [facility] Office for People With Developmental Disabilities. If such information is present, then the following [facility] mandated warning applies: This information has been [...] law may result in a fine or long-term sentence or both. A general authorization for the release of medical or other information is NOT sufficient authorization for further disc losure. Family History Family Member Name Family Member Gender Family Member Status Date o f Status Description Data Source(s) Unknown Unknown Problem [facility] Unknown Unknown Problem [facility] Unknown Male Problem MEDENT ([facility]) Encounters Encounter Providers Location Date Indications Data Source(s ) Outpatient Attender: Lisa ANTHONY 06/15/2021 12:00:00 AM T [facility] Extended Individual Psychotherapy - 45 min Attender: Clark Cruz [facility] 12/21/2020 02:30:00 AM EDT - 12/21/2020 02:30:00 AM EDT [facility] ([facility]) Attender: Moisés Cruz 12/21/2020 12:00:00 AM EDT [facility] ([facility]) Outpatient Attender: Woodrow Wilson NP [facility] 12/20/2020 03:00:00 AM EDT - 12/20/2020 03:00:00 AM EDT [facility] ([facility]) Attender: Woodrow Wilson NP 12/20/2020 12:00:00 AM EDT [facility] ([facility]) Outpatient Attender: Sugar Jaramillo MD [id number] 12/13/19 12:00:00 AM EDT - 12/12/2020 03:04:52 PM EDT [facility] Outpatient [facility] 12/09/2020 12:00:00 AM EDT eCW1 ([facility]) Outpatient Attender: Miya TREJO 12/06/2020 03:20 :00 PM EDT [facility] 12/06/2020 12:00:00 AM EDT eCW1 ([facility]) Attender: Moisés Cruz 11/25/2020 12:00:00 AM EDT [facility] ([facility]) Extended Individual Psychotherapy - 45 min Attender: Clark Cruz [facility] 11/23/2020 06:00:00 AM EDT - 11/23/2020 06:00:00 AM EDT [facility] ([facility]) Outpatient Attender: Woodrow Wilson NP [facility] 11/17/2020 11:00:00 AM EDT - 11/17/2020 11:00:00 AM EDT [facility] ([facility]) Attender: Woodrow Wilson NP 11/17/2020 12:00:00 AM EDT [facility] ([facility]) Outpatient Attender: Rebecca TREJO-CConsultant: [facility] [id number] 11/04/2020 08:50:00 AM EDT [facility] Outpatient Attender: Rebecca TREJO-CReferrer: Me allison TREJO EMERGENCY [id number] 11/04/2020 08:48:00 AM EDT - 11/04/2020 08:48:00 AM EDT [facility] 11/04/2020 12:00:00 AM EDT eCW1 ([facility]) Attender: Miosés Cruz 10/28/2020 12:00:00 AM EDT [facility] ([facility]) Extended Individual Psychotherapy - 45 min Attender: Clark figueroa Anthony [facility] 10/26/2020 06:00:00 AM EDT - 10/26/2020 06:00:00 AM EDT [facility] ([facility]) Extended Individual Psychotherapy - 45 min Attender: Clark figueroa Anthony [facility] 10/10/2020 02:00:00 AM EDT - 10/10/2020 02:00:00 AM EDT [facility] ([facility]) Attender: Moisés Cruz 10/10/2020 12:00:00 AM EDT [facility] ([facility]) Attender: Moisés Cruz 09/23/2020 12:00:00 AM EDT [facility] ([facility]) Extended Individual Psychotherapy - 45 min Attender: Clark figueroa [facility] 09/21/2020 03:00:00 AM EDT - 09/21/2020 03:00:00 AM EDT [facility] ([facility]) Outpatient Attender: Miya TREJO 09/20/2020 07:42 :00 AM EDT [facility] 09/20/2020 12:00:00 AM EDT eCW1 ([facility]) Extended Individual Psychotherapy - 45 min Attender: Clark figueroa [facility] 09/02/2020 03:00:00 AM EDT - 09/02/2020 03:00:00 AM EDT [facility] ([facility]) Attender: Moisés Cruz 09/02/2020 12:00:00 AM EDT [facility] ([facility]) [place] [address] [address] 08/31/2020 12:00:00 AM EDT eCW1 ([facility]) [place] [address] [address] 08/29/2020 12:00:00 AM EDT eCW1 ([facility]) Attender: Moisés Cruz 08/05/2020 12:00:00 AM EDT [facility] ([facility]) Extended Individual Psychotherapy - 45 min Attender: Clark figueroa [facility] 08/03/2020 03:00:00 AM EDT - 08/03/2020 03:00:00 AM EDT [facility] ([facility]) Outpatient Attender: Woodrow Wilson NP [facility] 07/21/2020 11:00:00 AM EDT - 07/21/2020 11:00:00 AM EDT [facility] ([facility]) Attender: Woodrow Wilson NP 07/21/2020 12:00:00 AM EDT [facility] ([facility]) Attender: Moisés Cruz 06/30/2020 12:00:00 AM EDT [facility] ([facility]) Extended Individual Psychotherapy - 45 min Attender: Clark figueroa [facility] 06/27/2020 02:00:00 AM EDT - 06/27/2020 02:00:00 AM EDT [facility] ([facility]) Attender: Moisés Cruz 06/20/2020 12:00:00 AM EDT [facility] ([facility]) Extended Individual Psychotherapy - 45 min Attender: Clark figueroa [facility] 06/17/2020 01:30:00 AM EDT - 06/17/2020 01:30:00 AM EDT [facility] ([facility]) Outpatient Attender: Woodrow Wilson NP [facility] 06/16/2020 11:00:00 AM EDT - 06/16/2020 11:00:00 AM EDT [facility] ([facility]) Attender: Woodrow Wilson NP 06/16/2020 12:00:00 AM EDT [facility] ([facility]) Attender: Moisés Cruz 06/12/2020 12:00:00 AM EDT [facility] ([facility]) Extended Individual Psychotherapy - 45 min Attender: Clark Cruz [facility] 06/10/2020 12:00:00 PM EDT - 06/10/2020 12:00:00 PM EDT [facility] ([facility]) Outpatient Attender: Sugar Jaramillo MD [id number] 06/10/19 12:00:00 AM EDT - 06/09/2020 02:05:50 PM [facility] [place] [address] [address] 05/05/2020 12:00:00 AM EST [facility] [place] [address] [address] 03/01/2020 12:00:00 AM EST eCW1 ([facility]) Attender: Lisa Abbott 02/16/2020 12:00:00 A M EST [facility] ([facility]) Extended Individual Psychotherapy - 45 min Attender: Mary Abbott [facility] 02/15/2020 09:00:00 AM EST - 02/15/2020 09:00:00 AM EST [facility] ([facility]) Outpatient Attender: OMARI BOWENS MD [facility] 02/15/2020 01:30:00 AM EST - 02/15/2020 01:30:00 AM EST [facility] ([facility]) Attender: OMARI BOWENS MD 02/15/2020 12:00:00 A M EST [facility] ([facility]) Brief Individual Psychotherapy - 20 min Attender: Sherrell titus [facility] 01/22/2020 09:30:00 AM EST - 01/22/2020 09:30:00 AM EST [facility] ([facility]) Attender: Sherrell Sapp 01/22/2020 12:00:[address] [facility] ([facility]) Outpatient Attender: OMARI BOWENS MD [facility] 01/18/2020 02:30:00 AM EST - 01/18/2020 02:30:00 AM EST [facility] ([facility]) Attender: OMARI BOWENS MD 01/18/2020 12:00:00 A M EST [facility] ([facility]) [id number]"Psychotherapy Attender: Sherrell Sapp [facility] 01/15/2020 09:00:00 AM EST - 01/15/2020 09:00:00 AM EST [facility] ([facility]) Attender: Sherrell Sapp 01/15/2020 12:00:[address] [facility] ([facility]) [id number]"Psychotherapy Attender: Sherrell Sapp [facility] 12/22/2019 02:00:00 AM EDT - 12/22/2019 02:00:00 AM EDT [facility] ([facility]) Attender: Sherrell Sapp 12/22/2019 12:00:00 AM E DT [facility] ([facility]) Outpatient Attender: Sugar Jaramillo MD [id number] 12/10/19 20 12:00:00 AM EDT - 12/10/2019 03:45:51 PM EDT Family history of malignant neoplasm of breast [facility] Family history of malignant neoplasm of breast Outpatient Attender: OMARI BOWENS MD [facility] 12/07/2019 02:30:00 AM EDT - 12/07/2019 02:30:00 AM EDT [facility] ([facility]) Attender: OMARI BOWENS MD 12/07/2019 12:00:00 A M EDT [facility] ([facility]) Attender: Sherrell Sapp 12/04/2019 12:00:00 AM E DT [facility] ([facility]) [id number]"Psychotherapy Attender: Sherrell Sapp [facility] 12/01/2019 11:00:00 AM EDT - 12/01/2019 11:00:00 AM EDT [facility] ([facility]) Outpatient Attender: Miya Hayden FNPReferrer: Miya TREJO 01/07/2019 10:00:00 AM EDT [facility] Outpatient Attender: HALEY GOMES RPA-CReferrer: Miya TREJO 04/25/2018 03:38:00 PM [facility] 04/25/2018 03:38:00 PM [facility] Functional Status Immunizations Vaccine Date Status Description Data Source(s) COVID-19 VACCINE Pfizer 12/09/2020 12:00:00 AM EDT completed [facility]SIIS Vaccine Series Complete: NOThis Data was Submitted to [facility] Via Chargeback. Medications Medication Brand Name Start Date Product Form Dose Route Admi nistrative Instructions Pharmacy Instructions Status Indications Reaction Description Data Source(s) quetiapine 200 MG Oral Tablet quetiapine 12/09/2020 12:00:00 AM EDT 200 mg completed <td ID="Medicat ionRxNorm_3">940902</td><td ID="MedicationMedication_3">quetiapine</td><td ID="MedicationRoute_3"></td><td ID="MedicationRouteConcept_3"></td><td ID="MedicationStartDate_3">12/09/2020</td><td ID="MedicationStopDate_3"></td><td ID="MedicationDosageFrequency_3"></td><td ID="MedicationDuration_3">90</td><td ID="MedicationFormulaStrength_3">200 mg</td><td ID="MedicationDosageForm_3">tablet</td><td ID="MedicationDosageFormCode_3"></td><td ID="MedicationDosageDescription_3"></td><td ID="MedicationMedicationId_3">[id number]</td><td ID="MedicationAccount_3">[id number]</td><td ID="MedicationNpid_3">[id number]</td><td ID="MedicationAuthorFirstName_3">Woodrow</td><td ID="MedicationAuthorLastName_3">Wilson</td><td ID="MedicationTaxonomyCode_3">[id number]</td><td ID="MedicationTaxonomyDesc_3">Nurse Practitioner</td><td ID="MedicationPhoneNumber_3">[phone]</td> [facility] ([facility]) Mupirocin 0.02 MG/MG Topical Ointment Mupirocin 2 % Mupiroci n 2 % 12/06/2020 12:00:00 AM EDT 1.0 {application} active Mupirocin 2 % eCW1 ([facility]) Mupirocin 0.02 MG/MG Topical Ointment Mupirocin 2 % Mupiroci n 2 % 12/06/2020 12:00:00 AM EDT 1.0 {application} active Mupirocin 2 % eCW1 ([facility]) gabapentin 100 MG Oral Capsule gabapentin 11/18/2020 12:00:00 AM EDT 100 mg completed <td ID="Medicat ionRxNorm_5">[id number]</td><td ID="MedicationMedication_5">gabapentin</td><td ID="MedicationRoute_5"></td><td ID="MedicationRouteConcept_5"></td><td ID="MedicationStartDate_5">11/18/2020</td><td ID="MedicationStopDate_5"></td><td ID="MedicationDosageFrequency_5"></td><td ID="MedicationDuration_5"></td><td ID="MedicationFormulaStrength_5">100 mg</td><td ID="MedicationDosageForm_5">capsule</td><td ID="MedicationDosageFormCode_5"></td><td ID="MedicationDosageDescription_5"></td><td ID="MedicationMedicationId_5">[id number]</td><td ID="MedicationAccount_5">[id number]</td><td ID="MedicationNpid_5">[id number]</td><td ID="MedicationAuthorFirstName_5">Woodrow</td><td ID="MedicationAuthorLastName_5">Wilson</td><td ID="MedicationTaxonomyCode_5">[id number]</td><td ID="MedicationTaxonomyDesc_5">Nurse Practitioner</td><td ID="MedicationPhoneNumber_5">[phone]</td> [facility] ([facility]) Vraylar Vraylar 11/18/2020 12:00:00 AM EDT 1.5 mg by mouth completed <td ID="MedicationRxNorm_5">[id number]</td><td ID="MedicationMedication_5">Vraylar</td><td ID="MedicationRoute_5">by mouth</td><td ID="MedicationRouteConcept_5">T26147</td><td ID="MedicationStartDate_5">11/18/2020</td><td ID="MedicationStopDate_5">02/14/2021</td><td ID="MedicationDosageFrequency_5">once a day</td><td ID="MedicationDuration_5">30</td><td ID="MedicationFormulaStrength_5">1.5 mg</td><td ID="MedicationDosageForm_5">capsule</td><td ID="MedicationDosageFormCode_5"></td><td ID="MedicationDosageDescription_5"></td><td ID="MedicationMedicationId_5">[id number]</td><td ID="MedicationAccount_5">[id number]</td><td ID="MedicationNpid_5">[id number]</td><td ID="MedicationAuthorFirstName_5">Woodrow</td><td ID="MedicationAuthorLastName_5">Wilson</td><td ID="MedicationTaxonomyCode_5">[id number]</td><td ID="MedicationTaxonomyDesc_5">Nurse Practitioner</td><td ID="MedicationPhoneNumber_5">[phone]</td> [facility] ([facility]) Vraylar Vraylar 11/18/2020 12:00:00 AM EDT 1.5 mg by mouth completed <td ID="MedicationRxNorm_2">[id number]</td><td ID="MedicationMedication_2">Vraylar</td><td ID="MedicationRoute_2">by mouth</td><td ID="MedicationRouteConcept_2">F21769</td><td ID="MedicationStartDate_2">11/18/2020</td><td ID="MedicationStopDate_2">02/14/2021</td><td ID="MedicationDosageFrequency_2">once a day</td><td ID="MedicationDuration_2">30</td><td ID="MedicationFormulaStrength_2">1.5 mg</td><td ID="MedicationDosageForm_2">capsule</td><td ID="MedicationDosageFormCode_2"></td><td ID="MedicationDosageDescription_2"></td><td ID="MedicationMedicationId_2">[id number]</td><td ID="MedicationAccount_2">[id number]</td><td ID="MedicationNpid_2">[id number]</td><td ID="MedicationAuthorFirstName_2">Woodrow</td><td ID="MedicationAuthorLastName_2">Wilson</td><td ID="MedicationTaxonomyCode_2">[id number]</td><td ID="MedicationTaxonomyDesc_2">Nurse Practitioner</td><td ID="MedicationPhoneNumber_2">[phone]</td> [facility] ([facility]) gabapentin 100 MG Oral Capsule gabapentin 11/18/2020 12:00:00 AM EDT 100 mg completed <td ID="Medicat ionRxNorm_2">[id number]</td><td ID="MedicationMedication_2">gabapentin</td><td ID="MedicationRoute_2"></td><td ID="MedicationRouteConcept_2"></td><td ID="MedicationStartDate_2">11/18/2020</td><td ID="MedicationStopDate_2"></td><td ID="MedicationDosageFrequency_2"></td><td ID="MedicationDuration_2"></td><td ID="MedicationFormulaStrength_2">100 mg</td><td ID="MedicationDosageForm_2">capsule</td><td ID="MedicationDosageFormCode_2"></td><td ID="MedicationDosageDescription_2"></td><td ID="MedicationMedicationId_2">[id number]</td><td ID="MedicationAccount_2">[id number]</td><td ID="MedicationNpid_2">[id number]</td><td ID="MedicationAuthorFirstName_2">Woodrow</td><td ID="MedicationAuthorLastName_2">Wilson</td><td ID="MedicationTaxonomyCode_2">[id number]</td><td ID="MedicationTaxonomyDesc_2">Nurse Practitioner</td><td ID="MedicationPhoneNumber_2">[phone]</td> [facility] ([facility]) gabapentin 300 MG Oral Capsule gabapentin 11/17/2020 12:00:00 AM EDT 300 mg by mouth completed <td ID="Medica tionRxNorm_4">389068</td><td ID="MedicationMedication_4">gabapentin</td><td ID="MedicationRoute_4">by mouth</td><td ID="MedicationRouteConcept_4">T14459</td><td ID="MedicationStartDate_4">11/17/2020</td><td ID="MedicationStopDate_4">01/16/2021</td><td ID="MedicationDosageFrequency_4">at bedtime</td><td ID="MedicationDuration_4">30</td><td ID="MedicationFormulaStrength_4">300 mg</td><td ID="MedicationDosageForm_4">capsule</td><td ID="MedicationDosageFormCode_4"></td><td ID="MedicationDosageDescription_4"></td><td ID="MedicationMedicationId_4">[id number]</td><td ID="MedicationAccount_4">[id number]</td><td ID="MedicationNpid_4">[id number]</td><td ID="MedicationAuthorFirstName_4">Woodrow</td><td ID="MedicationAuthorLastName_4">Wilson</td><td ID="MedicationTaxonomyCode_4">[id number]</td><td ID="MedicationTaxonomyDesc_4">Nurse Practitioner</td><td ID="MedicationPhoneNumber_4">[phone]</td> [facility] ([facility]) quetiapine 200 MG Oral Tablet quetiapine 11/17/2020 12:00:00 AM EDT 200 mg by mouth completed <td ID="Medica tionRxNorm_3">973189</td><td ID="MedicationMedication_3">quetiapine</td><td ID="MedicationRoute_3">by mouth</td><td ID="MedicationRouteConcept_3">Y83100</td><td ID="MedicationStartDate_3">11/17/2020</td><td ID="MedicationStopDate_3">01/16/2021</td><td ID="MedicationDosageFrequency_3">at bedtime</td><td ID="MedicationDuration_3">30</td><td ID="MedicationFormulaStrength_3">200 mg</td><td ID="MedicationDosageForm_3">tablet</td><td ID="MedicationDosageFormCode_3"></td><td ID="MedicationDosageDescription_3"></td><td ID="MedicationMedicationId_3">[id number]</td><td ID="MedicationAccount_3">[id number]</td><td ID="MedicationNpid_3">[id number]</td><td ID="MedicationAuthorFirstName_3">Woodrow</td><td ID="MedicationAuthorLastName_3">Wilson</td><td ID="MedicationTaxonomyCode_3">[id number]</td><td ID="MedicationTaxonomyDesc_3">Nurse Practitioner</td><td ID="MedicationPhoneNumber_3">[phone]</td> [facility] ([facility]) quetiapine 100 MG Oral Tablet quetiapine 08/18/2020 12:00:00 AM EDT 100 mg completed <td ID="Medicat ionRxNorm_2">779019</td><td ID="MedicationMedication_2">quetiapine</td><td ID="MedicationRoute_2"></td><td ID="MedicationRouteConcept_2"></td><td ID="MedicationStartDate_2">08/18/2020</td><td ID="MedicationStopDate_2"></td><td ID="MedicationDosageFrequency_2"></td><td ID="MedicationDuration_2">30</td><td ID="MedicationFormulaStrength_2">100 mg</td><td ID="MedicationDosageForm_2">tablet</td><td ID="MedicationDosageFormCode_2"></td><td ID="MedicationDosageDescription_2"></td><td ID="MedicationMedicationId_2">22579</td><td ID="MedicationAccount_2">[id number]</td><td ID="MedicationNpid_2">[id number]</td><td ID="MedicationAuthorFirstName_2">Woodrow</td><td ID="MedicationAuthorLastName_2">Wilson</td><td ID="MedicationTaxonomyCode_2">[id number]</td><td ID="MedicationTaxonomyDesc_2">Nurse Practitioner</td><td ID="MedicationPhoneNumber_2">[phone]</td> [facility] ([facility]) gabapentin 100 MG Oral Capsule gabapentin 08/18/2020 12:00:00 AM EDT 100 mg by mouth completed <td ID="Medica tionRxNorm_3">283323</td><td ID="MedicationMedication_3">gabapentin</td><td ID="MedicationRoute_3">by mouth</td><td ID="MedicationRouteConcept_3">Y87824</td><td ID="MedicationStartDate_3">08/18/2020</td><td ID="MedicationStopDate_3">09/17/2020</td><td ID="MedicationDosageFrequency_3">twice a day</td><td ID="MedicationDuration_3">30</td><td ID="MedicationFormulaStrength_3">100 mg</td><td ID="MedicationDosageForm_3">capsule</td><td ID="MedicationDosageFormCode_3"></td><td ID="MedicationDosageDescription_3"></td><td ID="MedicationMedicationId_3">24030</td><td ID="MedicationAccount_3">[id number]</td><td ID="MedicationNpid_3">[id number]</td><td ID="MedicationAuthorFirstName_3">Woodrow</td><td ID="MedicationAuthorLastName_3">Wilson</td><td ID="MedicationTaxonomyCode_3">[id number]</td><td ID="MedicationTaxonomyDesc_3">Nurse Practitioner</td><td ID="MedicationPhoneNumber_3">[phone]</td> [facility] ([facility]) lamotrigine 200 MG Oral Tablet lamotrigine 08/09/2020 12:00:00 AM EDT 200 mg completed <td ID="Medica tionRxNorm_1">199100</td><td ID="MedicationMedication_1">lamotrigine</td><td ID="MedicationRoute_1"></td><td ID="MedicationRouteConcept_1"></td><td ID="MedicationStartDate_1">08/09/2020</td><td ID="MedicationStopDate_1"></td><td ID="MedicationDosageFrequency_1"></td><td ID="MedicationDuration_1">90</td><td ID="MedicationFormulaStrength_1">200 mg</td><td ID="MedicationDosageForm_1">tablet</td><td ID="MedicationDosageFormCode_1"></td><td ID="MedicationDosageDescription_1"></td><td ID="MedicationMedicationId_1">47305</td><td ID="MedicationAccount_1">[id number]</td><td ID="MedicationNpid_1">[id number]</td><td ID="MedicationAuthorFirstName_1">Woodrow</td><td ID="MedicationAuthorLastName_1">Wilson</td><td ID="MedicationTaxonomyCode_1">[id number]</td><td ID="MedicationTaxonomyDesc_1">Nurse Practitioner</td><td ID="MedicationPhoneNumber_1">[phone]</td> [facility] ([facility]) Vraylar Vraylar 07/21/2020 12:00:00 AM EDT 1.5 mg by mouth completed <td ID="MedicationRxNorm_4">[id number]</td><td ID="MedicationMedication_4">Vraylar</td><td ID="MedicationRoute_4">by mouth</td><td ID="MedicationRouteConcept_4">O45067</td><td ID="MedicationStartDate_4">07/21/2020</td><td ID="MedicationStopDate_4">09/19/2020</td><td ID="MedicationDosageFrequency_4">once a day</td><td ID="MedicationDuration_4">30</td><td ID="MedicationFormulaStrength_4">1.5 mg</td><td ID="MedicationDosageForm_4">capsule</td><td ID="MedicationDosageFormCode_4"></td><td ID="MedicationDosageDescription_4"></td><td ID="MedicationMedicationId_4">47846</td><td ID="MedicationAccount_4">[id number]</td><td ID="MedicationNpid_4">[id number]</td><td ID="MedicationAuthorFirstName_4">Woodrow</td><td ID="MedicationAuthorLastName_4">Wilson</td><td ID="MedicationTaxonomyCode_4">[id number]</td><td ID="MedicationTaxonomyDesc_4">Nurse Practitioner</td><td ID="MedicationPhoneNumber_4">[phone]</td> [facility] ([facility]) Vraylar Vraylar 07/21/2020 12:00:00 AM EDT 1.5 mg by mouth completed <td ID="MedicationRxNorm_3">[id number]</td><td ID="MedicationMedication_3">Vraylar</td><td ID="MedicationRoute_3">by mouth</td><td ID="MedicationRouteConcept_3">H64947</td><td ID="MedicationStartDate_3">07/21/2020</td><td ID="MedicationStopDate_3">09/19/2020</td><td ID="MedicationDosageFrequency_3">once a day</td><td ID="MedicationDuration_3">30</td><td ID="MedicationFormulaStrength_3">1.5 mg</td><td ID="MedicationDosageForm_3">capsule</td><td ID="MedicationDosageFormCode_3"></td><td ID="MedicationDosageDescription_3"></td><td ID="MedicationMedicationId_3">84709</td><td ID="MedicationAccount_3">[id number]</td><td ID="MedicationNpid_3">[id number]</td><td ID="MedicationAuthorFirstName_3">Woodrow</td><td ID="MedicationAuthorLastName_3">Wilson</td><td ID="MedicationTaxonomyCode_3">[id number]</td><td ID="MedicationTaxonomyDesc_3">Nurse Practitioner</td><td ID="MedicationPhoneNumber_3">[phone]</td> [facility] ([facility]) aripiprazole 10 MG Oral Tablet aripiprazole 06/16/2020 12:00:00 AM ED T 10 mg by mouth completed <td ID="Medica tionRxNorm_2">373844</td><td ID="MedicationMedication_2">aripiprazole</td><td ID="MedicationRoute_2">by mouth</td><td ID="MedicationRouteConcept_2">M22060</td><td ID="MedicationStartDate_2">06/16/2020</td><td ID="MedicationStopDate_2">08/15/2020</td><td ID="MedicationDosageFrequency_2">once a day</td><td ID="MedicationDuration_2">30</td><td ID="MedicationFormulaStrength_2">10 mg</td><td ID="MedicationDosageForm_2">tablet</td><td ID="MedicationDosageFormCode_2"></td><td ID="MedicationDosageDescription_2"></td><td ID="MedicationMedicationId_2">01607</td><td ID="MedicationAccount_2">[id number]</td><td ID="MedicationNpid_2">[id number]</td><td ID="MedicationAuthorFirstName_2">Woodrow</td><td ID="MedicationAuthorLastName_2">Wilson</td><td ID="MedicationTaxonomyCode_2">[id number]</td><td ID="MedicationTaxonomyDesc_2">Nurse Practitioner</td><td ID="MedicationPhoneNumber_2">[phone]</td> [facility] ([facility]) lamotrigine 200 MG Oral Tablet lamotrigine 06/16/2020 12:00:00 AM EDT 200 mg by mouth completed <td ID="Medica tionRxNorm_2">418315</td><td ID="MedicationMedication_2">lamotrigine</td><td ID="MedicationRoute_2">by mouth</td><td ID="MedicationRouteConcept_2">F76408</td><td ID="MedicationStartDate_2">06/16/2020</td><td ID="MedicationStopDate_2">08/15/2020</td><td ID="MedicationDosageFrequency_2">once a day</td><td ID="MedicationDuration_2">30</td><td ID="MedicationFormulaStrength_2">200 mg</td><td ID="MedicationDosageForm_2">tablet</td><td ID="MedicationDosageFormCode_2"></td><td ID="MedicationDosageDescription_2"></td><td ID="MedicationMedicationId_2">30394</td><td ID="MedicationAccount_2">[id number]</td><td ID="MedicationNpid_2">[id number]</td><td ID="MedicationAuthorFirstName_2">Woodrow</td><td ID="MedicationAuthorLastName_2">Wilson</td><td ID="MedicationTaxonomyCode_2">[id number]</td><td ID="MedicationTaxonomyDesc_2">Nurse Practitioner</td><td ID="MedicationPhoneNumber_2">[phone]</td> [facility] ([facility]) lamotrigine 200 MG Oral Tablet lamotrigine 06/16/2020 12:00:00 AM EDT 200 mg by mouth completed <td ID="Medica tionRxNorm_3">986847</td><td ID="MedicationMedication_3">lamotrigine</td><td ID="MedicationRoute_3">by mouth</td><td ID="MedicationRouteConcept_3">L19722</td><td ID="MedicationStartDate_3">06/16/2020</td><td ID="MedicationStopDate_3">08/15/2020</td><td ID="MedicationDosageFrequency_3">once a day</td><td ID="MedicationDuration_3">30</td><td ID="MedicationFormulaStrength_3">200 mg</td><td ID="MedicationDosageForm_3">tablet</td><td ID="MedicationDosageFormCode_3"></td><td ID="MedicationDosageDescription_3"></td><td ID="MedicationMedicationId_3">75751</td><td ID="MedicationAccount_3">[id number]</td><td ID="MedicationNpid_3">[id number]</td><td ID="MedicationAuthorFirstName_3">Woodrow</td><td ID="MedicationAuthorLastName_3">Wilson</td><td ID="MedicationTaxonomyCode_3">[id number]</td><td ID="MedicationTaxonomyDesc_3">Nurse Practitioner</td><td ID="MedicationPhoneNumber_3">[phone]</td> [facility] ([facility]) quetiapine 100 MG Oral Tablet [Seroquel] Seroquel 06/16/2020 12 :00:00 AM EDT 100 mg by mouth completed <td ID="Me dicationRxNorm_1">876229</td><td ID="MedicationMedication_1">Seroquel</td><td ID="MedicationRoute_1">by mouth</td><td ID="MedicationRouteConcept_1">M74759</td><td ID="MedicationStartDate_1">06/16/2020</td><td ID="MedicationStopDate_1">08/15/2020</td><td ID="MedicationDosageFrequency_1">at bedtime</td><td ID="MedicationDuration_1">30</td><td ID="MedicationFormulaStrength_1">100 mg</td><td ID="MedicationDosageForm_1">tablet</td><td ID="MedicationDosageFormCode_1"></td><td ID="MedicationDosageDescription_1"></td><td ID="MedicationMedicationId_1">99239</td><td ID="MedicationAccount_1">[id number]</td><td ID="MedicationNpid_1">[id number]</td><td ID="MedicationAuthorFirstName_1">Woodrow</td><td ID="MedicationAuthorLastName_1">Wilson</td><td ID="MedicationTaxonomyCode_1">[id number]</td><td ID="MedicationTaxonomyDesc_1">Nurse Practitioner</td><td ID="MedicationPhoneNumber_1">[phone]</td> [facility] ([facility]) Tamoxifen 10 MG Oral Tablet Tamoxifen Citrate 10 MG Or al Tablet Tamoxifen Citrate 10 MG Oral Tablet 06/09/2020 12:00:00 AM EDT active Take one tablet daily for 3 months, then one month no tablets, and repeat [facility] aripiprazole 30 MG Oral Tablet aripiprazole 04/12/2020 12:00:00 AM ES T 30 mg by mouth completed <td ID="Medica tionRxNorm_1">983264</td><td ID="MedicationMedication_1">aripiprazole</td><td ID="MedicationRoute_1">by mouth</td><td ID="MedicationRouteConcept_1">E95012</td><td ID="MedicationStartDate_1">04/12/2020</td><td ID="MedicationStopDate_1"></td><td ID="MedicationDosageFrequency_1">once a day</td><td ID="MedicationDuration_1"></td><td ID="MedicationFormulaStrength_1">30 mg</td><td ID="MedicationDosageForm_1">tablet</td><td ID="MedicationDosageFormCode_1"></td><td ID="MedicationDosageDescription_1"></td><td ID="MedicationMedicationId_1">86170</td><td ID="MedicationAccount_1">[id number]</td><td ID="MedicationNpid_1">[id number]</td><td ID="MedicationAuthorFirstName_1">Omari</td><td ID="MedicationAuthorLastName_1">Ulberg</td><td ID="MedicationTaxonomyCode_1">[id number]</td><td ID="MedicationTaxonomyDesc_1">Psychiatry</td><td ID="MedicationPhoneNumber_1"> [phone]</td> [facility] ([facility]) Fluconazole 150 MG Oral Tablet Fluconazole 150 MG 03/01/2020 12:00: 00 AM EST 1.0 {tablet} active Fluconazole 150 MG eCW1 ([facility]) Fluconazole 150 MG Oral Tablet Fluconazole 150 MG 03/01/2020 12:00: 00 AM EST 1.0 {tablet} suspended Fluconazole 150 M G eCW1 ([facility]) Fluconazole 150 MG Oral Tablet Fluconazole 150 MG 03/01/2020 12:00: 00 AM EST 1.0 {tablet} suspended Fluconazole 150 M G eCW1 ([facility]) Fluconazole 150 MG Oral Tablet Fluconazole 150 MG 03/01/2020 12:00: 00 AM EST 1.0 {tablet} suspended Fluconazole 150 M G eCW1 ([facility]) Tamoxifen 10 MG Oral Tablet Tamoxifen Citrate 10 MG Or al Tablet Tamoxifen Citrate 10 MG Oral Tablet 12/10/2019 12:00:00 AM EDT active Take on half tablet daily for 3 months, then take no pills for one month, then 3 months on, 1 month off, keep repeating pattern until directed to [facility] lamotrigine 200 MG Oral Tablet lamotrigine 12/07/2019 12:00:00 AM EDT 200 mg by mouth completed <td ID="Medica tionRxNorm_1">847861</td><td ID="MedicationMedication_1">lamotrigine</td><td ID="MedicationRoute_1">by mouth</td><td ID="MedicationRouteConcept_1">K12786</td><td ID="MedicationStartDate_1">12/07/2019</td><td ID="MedicationStopDate_1">02/05/2020</td><td ID="MedicationDosageFrequency_1">once a day</td><td ID="MedicationDuration_1">30</td><td ID="MedicationFormulaStrength_1">200 mg</td><td ID="MedicationDosageForm_1">tablet</td><td ID="MedicationDosageFormCode_1"></td><td ID="MedicationDosageDescription_1"></td><td ID="MedicationMedicationId_1">42616</td><td ID="MedicationAccount_1">[id number]</td><td ID="MedicationNpid_1">[id number]</td><td ID="MedicationAuthorFirstName_1">Omari</td><td ID="MedicationAuthorLastName_1">Ulberg</td><td ID="MedicationTaxonomyCode_1">[id number]</td><td ID="MedicationTaxonomyDesc_1">Psychiatry</td><td ID="MedicationPhoneNumber_1"> [phone]</td> [facility] ([facility]) quetiapine 100 MG Oral Tablet quetiapine 12/07/2019 12:00:00 AM EDT 100 mg by mouth completed <td ID="Medica tionRxNorm_2">110551</td><td ID="MedicationMedication_2">quetiapine</td><td ID="MedicationRoute_2">by mouth</td><td ID="MedicationRouteConcept_2">K69846</td><td ID="MedicationStartDate_2">12/07/2019</td><td ID="MedicationStopDate_2">02/05/2020</td><td ID="MedicationDosageFrequency_2">at bedtime</td><td ID="MedicationDuration_2">30</td><td ID="MedicationFormulaStrength_2">100 mg</td><td ID="MedicationDosageForm_2">tablet</td><td ID="MedicationDosageFormCode_2"></td><td ID="MedicationDosageDescription_2"></td><td ID="MedicationMedicationId_2">72335</td><td ID="MedicationAccount_2">[id number]</td><td ID="MedicationNpid_2">[id number]</td><td ID="MedicationAuthorFirstName_2">Omari</td><td ID="MedicationAuthorLastName_2">[facility]</td><td ID="MedicationTaxonomyCode_2">[id number]</td><td ID="MedicationTaxonomyDesc_2">Psychiatry</td><td ID="MedicationPhoneNumber_2"> [phone]</td> [facility] ([facility] aripiprazole 30 MG Oral Tablet aripiprazole 12/07/2019 12:00:00 AM ED T 30 mg by mouth completed <td ID="Medica tionRxNorm_3">093029</td><td ID="MedicationMedication_3">aripiprazole</td><td ID="MedicationRoute_3">by mouth</td><td ID="MedicationRouteConcept_3">O03804</td><td ID="MedicationStartDate_3">12/07/2019</td><td ID="MedicationStopDate_3">02/05/2020</td><td ID="MedicationDosageFrequency_3">every morning</td><td ID="MedicationDuration_3">30</td><td ID="MedicationFormulaStrength_3">30 mg</td><td ID="MedicationDosageForm_3">tablet</td><td ID="MedicationDosageFormCode_3"></td><td ID="MedicationDosageDescription_3"> </td><td ID="MedicationMedicationId_3">32411</td><td ID="MedicationAccount_3">[id number]</td><td ID="MedicationNpid_3">[id number]</td><td ID="MedicationAuthorFirstName_3">Omari</td><td ID="MedicationAuthorLastName_3">Pascual</td><td ID="MedicationTaxonomyCode_3">[id number]</td><td ID="MedicationTaxonomyDesc_3">Psychiatry</td><td ID="MedicationPhoneNumber_3"> [phone]</td> [facility] ([facility]) Tamoxifen 10 MG Oral Tablet Tamoxifen Citrate 10 MG Or al Tablet Tamoxifen Citrate 10 MG Oral Tablet 09/01/2019 12:00:00 AM EDT 5 mg Oral aborted Take 0.5 tablets by mouth daily [facility] Insurance Providers Payer name Policy type / Coverage type Policy ID Covered democrat ID Covered democrat's relationship to ortiz Policy [place] Plan Information Medicaid [place] Medicaid [id number] [id number] Medicaid [place] Medicaid [id number] Self [id number] [facility] [id number] SP [id number] [facility] Community Plan Medigap Part B [id number] Self [id number] [facility] [id number] S [id number] [facility] [id number] S [id number] [facility] I [id number] Self [id number] [facility]-Medicaid [id number] ANSI-Medicaid [id number] ANSI-Medicaid [id number] ANSI-Medicaid [id number] ANSI-Medicaid [id number] ANSI-Medicaid [id number] ANSI-Medicaid [id number] ANSI-Medicaid [id number] ANSI-Medicaid [id number] ANSI-Medicaid [id number] ANSI-Medicaid [id number] ANSI-Medicaid [id number] ANSI-Medicaid [id number] ANSI-Medicaid [id number] ANSI-Medicaid [id number] ANSI-Medicaid [id number] ANSI-Medicaid [id number] ANSI-Medicaid [id number] [facility] Health Maintenance Organization (HMO) [id number] Self [id number] ANSI-Medicaid [id number] ANSI-Medicaid [id number] ANSI-Medicaid [id number] ANSI-Medicaid [id number] [facility] Health Maintenance Organization (O) [id number] Self [id number] [facility] Health Maintenance Organization (O) [id number] Self [id number] [facility] Health Maintenance Organization ([facility] [id number] Self [id number] [facility] Health Maintenance Organization ([facility] [id number] Self [id number] ANSI-Medicaid [id number] [facility] MED[facility] [id number] S [id number] [facility] Health Maintenance Organization [place] [id number] Self [id number] MEDICAID [id number] SP [id number] Medicaid [place] Medicaid [id number] Self [id number] MEDICAID [facility] [id number] S [id number] [facility] Health Maintenance Organization (HMO) [id number] Self [employer] MCDO [id number] SP [id number] [facility](MCAID) P [id number] S [id number] BLUE [employer] PLAN [id number] SP [id number] HMO BLUE [id number] SP [id number] SELF PAY UNAVAILABLE SP UNAVAILA BLE [facility] MEDICAID [id number] S [id number] [employer] COMMUNITY PLAN MCDHMO [id number] SP [id number] [facility](MCAID) O [id number] S [id number] ANSI-Medicaid [id number] [facility] Health Maintenance Organization (HMO) [id number] Self [id number] ANSI-Medicaid [id number] [facility]-Medicaid [id number] Problems, Conditions, and Diagnoses Code Display Name Description Problem Type Effective Dates Data Source(s) Z51.81 Encounter for therapeutic drug level mon itoring ENCOUNTER FOR THERAPEUTIC DRUG LEVEL MONITORING Diagnosis 12/06/2020 03:20:00 PM [facility] Z13.228 Encounter for screening for other metabo lic disorders ENCOUNTER FOR SCREENING FOR OTHER METABOLIC DISORD Diagnosis 12/06/2020 03:20:00 PM [facility] Z13.29 Encounter for screening for other suspec yanci endocrine disorder ENCOUNTER FOR SCREENING FOR OTH SUSPECTED ENDOCRIN Diagnosis 12/06/2020 03:20:00 PM [facility] Z13.0 Encounter for screening for diseases of the blood and blood-forming organs and certain disorders involving the immune mechanism ENCNTR SCREEN FOR DIS OF THE BLD/BLD-FORM ORG/IMMU Diagnosis 12/06/2020 03:20:00 PM [facility] Z13.220 Encounter for screening for lipoid disor ders ENCOUNTER FOR SCREENING FOR LIPOID DISORDERS Diagnosis 12/06/2020 03:20:00 PM [facility] F17.210 Nicotine dependence, cigarettes, uncompl icated NICOTINE DEPENDENCE, CIGARETTES, UNCOMPLICATED Diagnosis 12/06/2020 03:20:00 PM [facility] ospital L08.9 Local infection of the skin and subcutan eous tissue, unspecified LOCAL INFECTION OF THE SKIN AND SUBCUTANEOUS TISSU Diagnosis 03:20:00 PM [facility] E55.9 Vitamin D deficiency, unspecified VITAMIN D DEFI CIENCY, UNSPECIFIED Diagnosis 12/06/2020 03:20:00 PM [facility] G43.819 Other migraine, intractable, without sta tus migrainosus OTHER MIGRAINE, INTRACTABLE, WITHOUT STATUS MIGRAI Diagnosis 12/06/2020 03:20:00 PM [facility] F31.9 Bipolar disorder, unspecified BIPOLAR DISORDER, UNSPEC IFIED Diagnosis 12/06/2020 03:20:00 PM [facility] Z00.00 Encounter for general adult medical examination without abnormal findings ENCNTR FOR GENERAL ADULT MEDICAL EXAM W/O ABNORMAL FINDINGS Diagnosis 12/06/2020 03:20:00 PM [facility] R35.0 Frequency of micturition FREQUENCY OF MICTURITION Diag nosis 11/04/2020 08:48:00 AM [facility] R30.0 Dysuria DYSURIA Diagnosis 11/04/2020 08:48:00 AM [facility] R10.9 Unspecified abdominal pain UNSPECIFIED ABDOMINAL PAIN Diagnosis 11/04/2020 08:48:00 AM [facility] N64.4 Mastodynia MASTODYNIA Diagnosis 09/20/2020 07:42:00 AM [facility] N63.20 UNSPECIFIED LUMP IN THE LEFT BREAST, UNS PECIFIED Q UNSPECIFIED LUMP IN THE LEFT BREAST, UNSPECIFIED Q Diagnosis 09/20/2020 07:42:00 AM [facility] R10.30 Lower abdominal pain, unspecified LOWER ABDOMINA L PAIN, UNSPECIFIED Diagnosis 09/20/2020 07:42:00 AM [facility] R42 Dizziness and giddiness DIZZINESS AND GIDDINESS Diagno sis 09/20/2020 07:42:00 AM [facility] F31.9 Bipolar disorder, unspecified Unspecified Bipola r and Related Disorder Condition 12/21/2020 12:00:00 AM EDT [facility] ([facility]) F41.9 Anxiety disorder, unspecified Unspecified Anxiety Diso rder Condition 12/21/2020 12:00:00 AM EDT [facility] ([facility]) F31.9 Bipolar disorder, unspecified Bipolar I Disorder, Current or most recent episode depressed, Unspecified Condition 02/16/2020 12:00:00 AM EST [facility] ([facility]) Surgeries/Procedures Procedure Description Date Indications Data Source(s) Extended Individual Psychotherapy - 45 min 12/21/2020 12:00:00 AM EDT - 12/21/2020 12:00:00 AM EDT [facility] ([facility]) Extended Individual Psychotherapy - 45 min 12:00:00 AM EDT [facility] ([facility]) MHC Telemed E/M Lvl 2--Est pt 12/20/2020 12:00:00 AM EDT - 12/20/2020 12:00:00 AM EDT [facility] ([facility]) MHC Telemed E/M Lvl 2--Est pt 12/20/2020 12:00:00 AM E DT [facility] ([facility]) Extended Individual Psychotherapy - 45 min 11/25/2020 12:00:00 AM EDT - 11/25/2020 12:00:00 AM EDT [facility] ([facility]) Extended Individual Psychotherapy - 45 min 12:00:00 AM EDT [facility] ([facility]) MHC Telemed E/M Lvl 3--Est pt 11/17/2020 12:00:00 AM EDT - 11/17/2020 12:00:00 AM EDT [facility] ([facility]) Telemed A/O 30" 11/17/2020 12:00:00 AM EDT [facility] ([facility]) MHC Telemed E/M Lvl 3--Est pt 11/17/2020 12:00:00 AM E DT [facility] ([facility]) Extended Individual Psychotherapy - 45 min 10/28/2020 12:00:00 AM EDT - 10/28/2020 12:00:00 AM EDT [facility] ([facility]) Extended Individual Psychotherapy - 45 min 12:00:00 AM EDT [facility] ([facility]) Extended Individual Psychotherapy - 45 min 10/10/2020 12:00:00 AM EDT - 10/10/2020 12:00:00 AM EDT [facility] ([facility]) Extended Individual Psychotherapy - 45 min 12:00:00 AM EDT [facility] ([facility]) Extended Individual Psychotherapy - 45 min 09/23/2020 12:00:00 AM EDT - 09/23/2020 12:00:00 AM EDT [facility] ([facility]) Extended Individual Psychotherapy - 45 min 12:00:00 AM EDT [facility] ([facility]) Extended Individual Psychotherapy - 45 min 09/02/2020 12:00:00 AM EDT - 09/02/2020 12:00:00 AM EDT [facility] ([facility]) Extended Individual Psychotherapy - 45 min 12:00:00 AM EDT [facility] ([facility]) Extended Individual Psychotherapy - 45 min 08/05/2020 12:00:00 AM EDT - 08/05/2020 12:00:00 AM EDT [facility] ([facility]) Extended Individual Psychotherapy - 45 min 12:00:00 AM EDT [facility] ([facility]) MHC Telemed E/M Lvl 3--Est pt 07/21/2020 12:00:00 AM EDT - 07/21/2020 12:00:00 AM EDT [facility] ([facility]) Telemed A/O 30" 07/21/2020 12:00:00 AM EDT [facility] ([facility]) MHC Telemed E/M Lvl 3--Est pt 07/21/2020 12:00:00 AM E DT [facility] ([facility]) Extended Individual Psychotherapy - 45 min 06/30/2020 12:00:00 AM EDT - 06/30/2020 12:00:00 AM EDT [facility] ([facility]) Extended Individual Psychotherapy - 45 min 1 12:00:00 AM EDT [facility] ([facility]) Extended Individual Psychotherapy - 45 min 06/20/2020 12:00:00 AM EDT - 06/20/2020 12:00:00 AM EDT [facility] ([facility]) Extended Individual Psychotherapy - 45 min 12:00:00 AM EDT [facility] ([facility]) MHC Telemed E/M Lvl 3--Est pt 06/16/2020 12:00:00 AM EDT - 06/16/2020 12:00:00 AM EDT [facility] ([facility]) MHC Telemed E/M Lvl 3--Est pt 06/16/2020 12:00:00 AM E DT [facility] ([facility]) Extended Individual Psychotherapy - 45 min 06/12/2020 12:00:00 AM EDT - 06/12/2020 12:00:00 AM EDT [facility] ([facility]) Extended Individual Psychotherapy - 45 min 12:00:00 AM EDT [facility] ([facility]) Extended Individual Psychotherapy - 45 min 02/16/2020 12:00:00 AM EST - 02/16/2020 12:00:00 AM EST [facility] ([facility]) Extended Individual Psychotherapy - 45 min 0 12:00:00 AM EST [facility] ([facility]) MHC Telemed E/M Lvl 3--Est pt 02/15/2020 12:00:00 AM EST - 02/15/2020 12:00:00 AM EST [facility] ([facility]) MHC Telemed E/M Lvl 3--Est pt 02/15/2020 12:00:[address] [facility] ([facility]) Brief Individual Psychotherapy - 20 min 01/22/2020 12:00:00 AM EST - 01/22/2020 12:00:00 AM EST [facility] ([facility]) Brief Individual Psychotherapy - 20 min 01/22/2020 12: 00:00 AM EST [facility] ([facility]) MHC Telemed E/M Lvl 3--Est pt 01/18/2020 12:00:00 AM EST - 01/18/2020 12:00:00 AM EST [facility] ([facility]) MHC Telemed E/M Lvl 3--Est pt 01/18/2020 12:00:[address] [facility] ([facility]) [id number]"Psychotherapy 0 12:00:00 AM EST - 01/15/2020 12:00:00 AM EST [facility] ([facility]) [id number]"Psychotherapy 01/15/2020 12:00:00 AM EST [facility] ([facility]) [id number]"Psychotherapy 0 12:00:00 AM EDT - 12/22/2019 12:00:00 AM EDT [facility] ([facility]) [id number]"Psychotherapy 12/22/2019 12:00:00 AM EDT [facility] ([facility]) MHC Telemed E/M Lvl 3--Est pt 12/07/2019 12:00:00 AM EDT - 12/07/2019 12:00:00 AM EDT [facility] ([facility]) MHC Telemed E/M Lvl 3--Est pt 12/07/2019 12:00:00 AM E DT [facility] ([facility]) [id number]"Psychotherapy 0 12:00:00 AM EDT - 12/04/2019 12:00:00 AM EDT [facility] ([facility]) [id number]"Psychotherapy 12/01/2019 12:00:00 AM EDT [facility] ([facility]) Results ID Date Data Source [id number] 12/12/2020 03:05:56 PM EDT [facility] Name Value Range Interpretation Code Description Data Belen rce(s) Supporting Document(s) Progress Note [facility] WNPSDn0nRoIBAwIf58/KTMrtHIZnr1KbBWpgKZn6JDumDLLjS9HzGSV2nJ9wNZO3DBqFNxBiXpRmVQU8 lbm LkEhiQJkNrCPSoAopIHaTgDThjEpovvLFlAS9IvSO6RNUzW83yQRQgXSJfY9HlCCLfKCZ+Nr8SLVVukK KtFQ3FWmvE6F9lv9lVPH4qVO/EstDf2adcoz6kwwqHf0WrH+4qqnu1hqrDfWRWecMWtwSk/PqCBCDyHK 2+7RnIXV0eoI97UFC11S14rHFLd29YyPg0JOlb/3vz jdw47JGL/k28qqsw4508ys3my2t95CwWNbjp1X/20psrEMhRK29ylCBWIuq4b7fSKIR1dEoTRrd+OB1l k/obhCwUoJg2f51qJllT8UL31+Lk75xTn6SlYFL6Do+qs/eu7Dq05Ghs17lUdtt9/uPLBcI6xsAqKFtw SvcwUmyZ5EKs4gX1ICq7PpcZ/zvE0B9SZjdKzFau7K M+znVukakLu/Ck4X38fWq9NjItLCXFsHp1Iul27L/SlICwUjmcDdgZeFzuDr2bF/39bEvV1aJIj4npxd 5LIu+fDUquJ4p6WlNx5bhWKDCXxnydYYADgRTI519j+z3I0Vd6qUtP/y540H3nOhg3K9ocb+zrZY4MlS Stan/mIcpUnOUFLCyNOBYGr9wi9+ql8eQlYf8cRj+Ij [file] AgICAgICAgICAgICAgICAgICAgICAgICAgICAgICAg ICAgICAgICAgICAgICAgICAgICAgICAgICAgICAgICAgICANCiAgICAgICAgICAgICAgICAgICAgICAg ICAgICAgICAgICAgICAgICAgICAgICAgICAgICAgICAgICAgICAgICAgICAgICAgICAgICAgICAgICAg ICAgICAgICAgICAgICAgICANCiAgICAgICAgICAgIC AgICAgICAgICAgICAgICAgICAgICAgICAgICAgICAgICAgICAgICAgICAgICAgICAgICAgICAgICAgIC AgICAgICAgICAgICAgICAgICAgICAgICAgICANCiAgICAgICAgICAgICAgICAgICAgICAgICAgICAgIC AgICAgICAgICAgICAgICAgICAgICAgICAgICAgICAg ICAgICAgICAgICAgICAgICAgICAgICAgICAgICAgICAgICAgICANCiAgICAgICAgICAgICAgICAgICAg ICAgICAgICAgICAgICAgICAgICAgICAgICAgICAgICAgICAgICAgICAgICAgICAgICAgICAgICAgICAg ICAgICAgICAgICAgICAgICAgICANCiAgICAgICAgIC AgICAgICAgICAgICAgICAgICAgICAgICAgICAgICAgICAgICAgICAgICAgICAgICAgICAgICAgICAgIC AgICAgICAgICAgICAgICAgICAgICAgICAgICAgICANCiAgICAgICAgICAgICAgICAgICAgICAgICAgIC AgICAgICAgICAgICAgICAgICAgICAgICAgICAgICAg ICAgICAgICAgICAgICAgICAgICAgICAgICAgICAgICAgICAgICAgICANCiAgICAgICAgICAgICAgICAg ICAgICAgICAgICAgICAgICAgICAgICAgICAgICAgICAgICAgICAgICAgICAgICAgICAgICAgICAgICAg ICAgICAgICAgICAgICAgICAgICAgICANCiAgICAgIC AgICAgICAgICAgICAgICAgICAgICAgICAgICAgICAgICAgICAgICAgICAgICAgICAgICAgICAgICAgIC AgICAgICAgICAgICAgICAgICAgICAgICAgICAgICAgICANCiAgICAgICAgICAgICAgICAgICAgICAgIC AgICAgICAgICAgICAgICAgICAgICAgICAgICAgICAg ICAgICAgICAgICAgICAgICAgICAgICAgICAgICAgICAgICAgICAgICAgICANCjw/eQDjI2pagPHatbD0 O3oiZf7GCx6FRA7vo3UlFAPjQYcnuuNoWagEZgWsEPBmDxcILwx5WXdxWO3ZkKFhP9HdM8VwFPxdVS2Y SKFcTWIhzQLkLCBaOWKtZsG0NEZzPAywUE7ZqDHoLB bqENNfCPSsGkQfHRMhMRGwIAAmLTZjYPJJUDFjNOAaAsAxKLtiSW9Lm0NrgLE1VZc+Wa3TBV1wr9NfRM vxUSXpOQ7poh1FFOaOYiOiT1TxruZ9OKIrPFQaHa0XGTWfZWWvzBNfVCUeWKOLVrFcN7JgnM79XYUSHi 4+EMmnvfJvOsvXIiExWVItw8WkTSo2TX0QGBCdKLo9 dCObHXLpL4Xtm7KtHo56UBJvZpldLPGldDMEzAqxwfIOyvQbdehaNVSkJKUtIYQoHO1kWNMrRSOlGsB7 CAXPNZ6EOBSwWYAybACgGFEhYKLXJJ0LLPbcXHW4KTMkbnExuBKyQGuzWU2MPFTcjwKbMpRbBGPTHGo+ By6QWJ3el9JmCBhpWoHtHM9egm8YXAqRArClY0R0zF CyE5Y5HMbhYh3IPHRiJYAyEofwQQLOEAzkNO0LMC4ciyG1ED3EeRIvOIMzLWGkcSYwHZr9B05dhMGqSL ngUR2DDVQ+Elyssa+Xy3EDFBpELWtYIYmQmXpETAZIkLbW6MlB4NYy3ImP8YiHW91wUibuxDoVOhxTO4RKR 0yMZAmEMYZDC5MiARmhD0gcuZxEJXuJDELLnTwG76c cKJeZATsVYE5UPDgBv6QTEYfG3BqfxUquUlrggHgQPPzLRYIIZ7FSXhahyBgkIKxcVwlNM39hJyoEE7G Pk7VAtLwRD6tbc4YoSCmRc0FQBQiUv1MCGYvJRGdZVLvGVT8SQGmDcAmSCwhOLUnBAEbBOG9HKUrEKUv XJ4NEeLiHKFtJsSvOBopHHNpYNEyoj5FXSZsMHKdXf Z8CJEzDHBkVVFaDIphVZZmBZCwHWH2SSFvNNRzPT2HHtRpDCMlDNC7WlSaRLJaGLJjdk0TUAYqJHZsWF rpWaRbXTEsNFRmWObpOXEsNXO4YrMwISRfBCEfZI8SSmXzKJZgZHb6USUnUXXsWVGyni4MTCUeDOZrMw l4NXFwPTHmSPMhAQafOCWlVNCzAEV9GWHkLDEwOL1T LlDmYTHoBGX3SnLvNHAvOEDvyv6IUGIzTDMoDrR6JgEeLACoJBXhMEyyJMLsIZA6GqMkTMSyTXGkBC7O YjUiORCdGWr3BlVyAWFlORUfoa5IANZgENRlJMg2LrJhQNBoLDBiSBnuMPVbUTIiKTxqSPUsVBHrNV4Z SsTnCKQvCkQmGbUkQEZyCODbka0SKWQvOGYtAONgNT UfIDRbXEHaUVgtBEHqRBJaPPX2RJGpBTFpYQ8WEdTkTYBjNuR9EaEqSXYjVYGuxh6JEQJvXWQuXnQ2XY MsEBXfHQIeQFjoCXVjEOWwZpckGWVuFKOiOW5FDhOlDIXkFpW0IPhpZTIcTLDbdz0CPXTnXIAfFqrsJN QrYOHwIYKuEXzeSGIzXJMnQNh7IIZlOEMpWC3SOoEb UMIkKqE1HnatEQTrYMVrss7NKYOtGVWsDGSdVQImBTHfGAPvVJcpJMIyJDV7Uqi9DGGmVDGdGM6DIfWr BJFhEkT1YXPeJDSrQMQgvw1LBBVtESVcMxN0ETAwNUWdMGKmFXzdGWBjFFB4RwJ2DCAkKEVzHA0WPrXo IMWjXjo9IZAsCAYcIXNgvk5SnIBnfUpgjf4EMSmJBe 9CnMkqANTfFDzlXe5pcERcViVqKMKCEv1UccFgIZHpDCTAMIszPUNnYLM4JTUhYECiCIC6IYb4MCT6YW ZlEYPaOqAvVCj7NrZeKpC4Amb4JUJeJrT8ZNnrTVYmAHO7ZeWjK0ZvIzEyBJX5ECL+HB2uXPo+Pg0Kc3 LnprP1jrTlQRnsUkJ1IH3DSMPMG1BYKd== ID Date Data Source [id number] 11/04/2020 09:12:00 AM EDT [facility] Name Value Range Interpretation Code Description Data Belen rce(s) Supporting Document(s) URINE COLOR. [facility] URINE APPEARANCE SLIGHTY CLOUDY [facility] URINE GLUCOSE (UA) NEGATIVE mg/dL NEGATIVE [facility] URINE BILIRUBIN NEGATIVE NEGATIVE [facility] URINE KETONE NEGATIVE mg/dL NEGATIVE [facility] SPECIFIC GRAVITY,URINE 1.025 1.005-1.030 [facility] URINE BLOOD NEGATIVE NEGATIVE [facility] PH,URINE 5.0 5.0-9.0 [facility] URINE PROTEIN NEGATIVE mg/dL NEGATIVE [facility] URINE UROBILINOGEN NORMAL(0.2-1) mg/dL 0-1 [facility] URINE NITRATE NEGATIVE NEGATIVE [facility] URINE LEUKOCYTE ESTERASE NEGATIVE NEGATIVE [facility] ID Date Data Source [id number] 11/04/2020 12:00:00 AM EDT eCW1 ([facility][note 3]) Name Value Range Interpretation Code Description Data Belen rce(s) Supporting Document(s) YELLOW URINE COLOR. eCW1 ([facility]) SLIGHTY CLOUDY URINE APPEARANCE eCW1 ([facility]) NEGATIVE NEGATIVE URINE GLUCOSE (UA) eCW1 ( [facility]) NEGATIVE NEGATIVE URINE KETONE eCW1 ([facility]) NEGATIVE NEGATIVE URINE BILIRUBIN eCW1 ([facility]) NEGATIVE NEGATIVE URINE BLOOD eCW1 ([facility]) 1.025 1.005-1.030 SPECIFIC GRAVITY,URINE e CW1 ([facility]) 5.0 5.0-9.0 PH,URINE eCW1 ([facility]) NEGATIVE NEGATIVE URINE NITRATE eCW1 ([facility]) NEGATIVE NEGATIVE URINE PROTEIN eCW1 ([facility]) NORMAL(0.2-1) 0-1 URINE UROBILINOGEN eCW 1 ([facility]) NEGATIVE NEGATIVE URINE LEUKOCYTE ESTERASE eCW1 ([facility]) ID Date Data Source [id number] 06/09/2020 02:09:13 PM EDT [facility] Name Value Range Interpretation Code Description Data Belen rce(s) Supporting Document(s) Progress Note [facility] UADASe7gExJVQwQr99/QYAskEPTna6MhPQhmWUt5QKatQLJwE0PjFNV6hJ0yUAZ9HJbFCsWlXtUvSACw lbm [file] E+DQogICAgICAgICAgICAgICAgICAgICAgICAgICAgICAgICAgICAgICAgICAgICAgICAgICAgICAgIC AgICAgICAgICAgICAgICAgICAgICAgICAgICAgICAgICAgICAgICAgICAgDQogICAgICAgICAgICAgIC AgICAgICAgICAgICAgICAgICAgICAgICAgICAgICAg ICAgICAgICAgICAgICAgICAgICAgICAgICAgICAgICAgICAgICAgICAgICAgICAgICAgICAgDQogICAg ICAgICAgICAgICAgICAgICAgICAgICAgICAgICAgICAgICAgICAgICAgICAgICAgICAgICAgICAgICAg ICAgICAgICAgICAgICAgICAgICAgICAgICAgICAgIC AgICAgDQogICAgICAgICAgICAgICAgICAgICAgICAgICAgICAgICAgICAgICAgICAgICAgICAgICAgIC AgICAgICAgICAgICAgICAgICAgICAgICAgICAgICAgICAgICAgICAgICAgICAgDQogICAgICAgICAgIC AgICAgICAgICAgICAgICAgICAgICAgICAgICAgICAg ICAgICAgICAgICAgICAgICAgICAgICAgICAgICAgICAgICAgICAgICAgICAgICAgICAgICAgICAgDQog ICAgICAgICAgICAgICAgICAgICAgICAgICAgICAgICAgICAgICAgICAgICAgICAgICAgICAgICAgICAg ICAgICAgICAgICAgICAgICAgICAgICAgICAgICAgIC AgICAgICAgDQogICAgICAgICAgICAgICAgICAgICAgICAgICAgICAgICAgICAgICAgICAgICAgICAgIC AgICAgICAgICAgICAgICAgICAgICAgICAgICAgICAgICAgICAgICAgICAgICAgICAgDQogICAgICAgIC AgICAgICAgICAgICAgICAgICAgICAgICAgICAgICAg ICAgICAgICAgICAgICAgICAgICAgICAgICAgICAgICAgICAgICAgICAgICAgICAgICAgICAgICAgICAg DQogICAgICAgICAgICAgICAgICAgICAgICAgICAgICAgICAgICAgICAgICAgICAgICAgICAgICAgICAg ICAgICAgICAgICAgICAgICAgICAgICAgICAgICAgIC AgICAgICAgICAgDQogICAgICAgICAgICAgICAgICAgICAgICAgICAgICAgICAgICAgICAgICAgICAgIC AqPGOiHDSaKIMdAWPeYSLgMYDfCUNyYJKfWECiTHDsAABbTJNoZASzIFCaWKCfXXTwYZDfFOj6Q5kmRC ByQWJmTO1xTGz8Oi0+JBqGVhFjJGO1wgPhhY2USG7r f7EaLEahURGjt5YpMEn7MM9NOYKsULcbXN6YNDstqq8MKJQaEONfqQUVt9puOoIpCDT3OJSeQpkuCO3R YLYxM3rpeiRdHVRePZURLAdxICWDAAnfPRZSKFNsGEJbKiPlLpPeOUAnWG6HLNNtK770arMmON5AAn3F ZoIyAK0ohk5EQcQcXPDiMbtPCfj1MNbdUS5XuSUqtO WrBHDkBTYEVhIfY4ccd8VdQdIlAXTIIMbgKA0Ap2MbyEJuTLu+Fk2PPY9au7HtZUdeDQWnAG3rxz7YPM kZRfXtK6JdiOhqXNRhi7xxUGMrRZ3smDPhGAV7HV9sfofiHLmoGJ7tO0HhG10qSJ9MZPX0WBRfIX2tDJ RhCVAaVgEfNAQUWC4TCCDePYFitDZnUMNrUXAUGU5V LKxrBKM8OGWzlqNtnODuGCojND0FJAJnbuLaOcNiMWBCYKs+Wc8JQU1qh4LyHEivDAWvWT0kdx5GHIkS BwUqA4M9rAUiF5N1WMldMr5UKFJsCFEdChOaORZMYMltMI7NPZ6uqtU9UY9FjOPwAQIlPBUysOEvTBf1 W58hlUIySCdoYT6GEEQ+Elyssa+Ul9XEJGqUKJaMVQzKp RvTPPYMqAbG4CtE8AXy2WnM6BgCW40hPbllxQiACweJU3XTC3aRRDtLEJCIA5MyNNmmK8jpxEuOqZpHY HYQsYfM09eaLAwMQBpCIJrJWUwIf3BQZTuF0BareAbhCoubpUyDRTzNNZIFR7KJEjfpzFylPZrnVeuAW 87yQnkNQ4VOc8ZMtNnBV9drk0OeLSqFj3UYPFnFy0L PWGqMVHqEZTjNBS1HXBeUuWjKOyyGNLxCXCfVWB0PWZwOTNhLM5NXaLhWIXqOkK3GuLaSURhAZIrmw9A WXXqKTKfTRI9RfTnTDRoZBYbOGuhNFCwMTFuRNE1VXCdZFJuRD8CDgOhMDHmCBP6YFBiTVGwWBTfso9W HLGsKPTiFOyxSZUcSPCvYSZfKUtxKBGbSVG1XiMyPM KhIMAcEH8XPhXzYYQzYVt1FqPnRJOiAGMvbo7OVHInHHRkIcfhSVZhYVWtGXOeICrdGIBnDPXqJIJ9OW ErCXEgWF2BLiMaCTEqFLxbOMQbSBVlLMUxof5GSMKuJDDbYwU7DARjHSZkCFWhCPqnZFScDYA4ORH4NM IjDCIlMW7UIuWiIZAfQQbjPUSiVWAyFWHanb2VYWYb TXPpTAIeBoBqDYTqITVtPXrzQMHqBAZuFJu3ZJMrNQEoZM6MJgKuFELuVrLsAVYtWMXoKLIggl1CSSGn BRYpROK8XABeSLCaUZFtMDqsSJHqFLUdUOFrZHQzZPVtCG3PYfNkDDByHxD5RlPuSJKdGVAgdq9IUNHy AWPjWxB0GYYrTCXuOLNeDXanOQArENMbDJr4IFVuDJ YeZO1SDeXmOCDsVyK9KNJoYWYsPOJeza6DPTFiLXSyZkl0YFMsHMEaGVUwYYlmBMCfIPQ3DNjjZLJrWD GgTU3BByUcJWGdLfZyUeQyVGWxMXPtmr4YFIEvXHGpWKBwYNZeGYUuQPAbDFlaUORdLCC4BGDzFSZhMF EcVP7FVjUtDXXoBeUuBLcoUEEsREMmuh3ETNSdJNKx DaXuTKQvYSCrMDTaKYyiUJYuFJM6ObGuIJSqOWHgSE9EXzWsRSEeUxfxKRYxFLZhBPYeyz6XFMMxHURt RIEwYBQqIRQgVMLcTBbvVOYdTZD3OlxoMSYeAIVmSU9VXiNnWXFkUzb9HsCsENMbRJOgxg4EeMZmiYrt gu5JVXbTUr9RzSvhYUV6VMxeEu1tgVDiTIQbRBQJMn 6JahTzGRIaETFFJQjtFOBsZEanFJC8UCWmPYA3KEL2YFS8R3OiC0ZcPAi1FUl4PVV6VsG5SGXmUzv6M5 C4ZuouTCwpWSbbFGB1YXM0WfGrAKqaGbZ+FI4hELk+Dj7Vq6LmthE9vzCuMZniERG8DY1NEEGRR8JTYg == ID Date Data Source [id number] 12/10/2019 03:44:34 PM EDT [facility] Name Value Range Interpretation Code Description Data Belen rce(s) Supporting Document(s) Progress Note [facility] XRKVIa8oZoVWFkZd51/TKOqzZBMie9ZcZIecSYh4BWhjETAhL0IlESR5iG1nKTN8BBnQRxSwEcIzMEGs lbm [file] DQogICAgICAgICAgICAgICAgICAgICAgICAgICAgICAgICAgICAgICAgICAgICAgICAgICAgICAgICAg ICAgICAgICAgICAgICAgICAgICAgICAgICAgICAgIC AgICAgICAgICAgDQogICAgICAgICAgICAgICAgICAgICAgICAgICAgICAgICAgICAgICAgICAgICAgIC AgICAgICAgICAgICAgICAgICAgICAgICAgICAgICAgICAgICAgICAgICAgICAgICAgICAgDQogICAgIC AgICAgICAgICAgICAgICAgICAgICAgICAgICAgICAg ICAgICAgICAgICAgICAgICAgICAgICAgICAgICAgICAgICAgICAgICAgICAgICAgICAgICAgICAgICAg ICAgDQogICAgICAgICAgICAgICAgICAgICAgICAgICAgICAgICAgICAgICAgICAgICAgICAgICAgICAg ICAgICAgICAgICAgICAgICAgICAgICAgICAgICAgIC AgICAgICAgICAgICAgDQogICAgICAgICAgICAgICAgICAgICAgICAgICAgICAgICAgICAgICAgICAgIC AgICAgICAgICAgICAgICAgICAgICAgICAgICAgICAgICAgICAgICAgICAgICAgICAgICAgICAgDQogIC AgICAgICAgICAgICAgICAgICAgICAgICAgICAgICAg ICAgICAgICAgICAgICAgICAgICAgICAgICAgICAgICAgICAgICAgICAgICAgICAgICAgICAgICAgICAg ICAgICAgDQogICAgICAgICAgICAgICAgICAgICAgICAgICAgICAgICAgICAgICAgICAgICAgICAgICAg ICAgICAgICAgICAgICAgICAgICAgICAgICAgICAgIC AgICAgICAgICAgICAgICAgDQogICAgICAgICAgICAgICAgICAgICAgICAgICAgICAgICAgICAgICAgIC AgICAgICAgICAgICAgICAgICAgICAgICAgICAgICAgICAgICAgICAgICAgICAgICAgICAgICAgICAgDQ ogICAgICAgICAgICAgICAgICAgICAgICAgICAgICAg ICAgICAgICAgICAgICAgICAgICAgICAgICAgICAgICAgICAgICAgICAgICAgICAgICAgICAgICAgICAg ICAgICAgICAgDQogICAgICAgICAgICAgICAgICAgICAgICAgICAgICAgICAgICAgICAgICAgICAgICAg ICAgICAgICAgICAgICAgICAgICAgICAgICAgICAgIC EpPFIeAXSnNEQeSCCxRAKaOIBiXSx8D7ntZHFsLWTvZQ0dXBl1Sh4+JMeIFnFiMOA4nsXcpB0JYA1vt7 HpPAlgZQTbz5LpDJe2PJ1AWXAwBAofCD5ORDfslu1SQUBkYEPzlBTZa3jrPyAzOJM5CIQhLaofNA9TBC LpW4cvliFsZHVgUJIMCEquZFLLHIpzWFBHIABuMSBo IiCxXGwgYG6Su2NbiIA6NSd+Vg2OBS9kk2HjCAawSKBrIS4kjy8JVAgPExDlZ9SdqsQ5QUOjWCFbPm3A NBAnFVNjsLYrZbCsPXKEUcSbR7UpuY90OEPTHn1+USjiirDsXxySBrSdEDGtk4JjQBz9EN0IAHWpKFc4 oPZiBZCoA3Omb5HwAq87GPQgWhplGGSxuCOCtFtwhe AFmrVxvcbvAMFrQYPrBJSlMF3yFICvEWJiRxThGVVKNW9RTIAuHAExlJKpLUVwFRWKTO4EBBthVCP6EI UlztBnmDSlPZwjQE5XCDLjupCdEyHbEMDVTJx+Fo3VDU2ox7QxOOckZlJgDA4wfp5AGBjFWkMnH5C4dQ YqO7I7QCbrCh9TAYDkHSBcHxtwWQLOALwtQS0SFI4a ilA6CP8GbKLeEPYhLRLdbNQwTSq5J23ysYQbCHdpRC6KEJF+Elyssa+Is0DFQYbVADwCMJhRcOfWNDSKlKc V9ZpP1FAu1IaZ3LjSJ37wHnitmUsXEdxAI8YXI3dMIApEEABKH5TqNCckF0hlmMgGKLfCHGKNySaN34k sLCaQMEyBMPcFXZzEt2KOLErS5QjzsRmlGxttfHsXQ KgGQXEGV5LPPgrqcObnYBfsYjrXH54kQpgVR1FEe8KTsBnZO0oze0SkBDwGw2STWUnLH2XUWIrNMYoIF LpPYY4IPMlObIaMBcwBZVpDVZtVQC7XIVnICJiEH0MAuOdMHJaPeJ7JqQqVNGkXCDepc6UYRBbSJRzLm M8OpOzDUZoSCAgMZqeFAIlKVLsYZA4VSQoUZEoVO5E BySmLQAlLVT5AGSaNWUhVDOfop6DMBXhEVMnPSo7KCKtVJVnZLLeRVzhWCJmPFG4MkRzEQTeFZJgLA9W MgCdZBIuRYb0UNMjEQAySAXtpb8FGTTkYQVlQorlQYOdNPCdYFIsVHjcWFQzYHAjBQDcLNGtMKJuUR6T FcHvBQXrSJX4DsGqUACpVYGoob5AIUCpYIQbQrvcCX WhCAKpVAXuWHjkSFZdTWO9Kor7GYHiIOMjWW3XQkIhBKIuUGg6PHSxFMQkEHCirv4SSXMyBMEsTDX1QR WuEYTvIUEuVZoaEFQqKIM7TVB3YIQxOBYzDZ6PRrKrUCBmSObmEuedGGHbHOMfoe9IGKIgOWYrSFDeDw JrXVHzBZQgSHibLPFtMQKvLZS9RUHfQTAyMZ8NVdQj SGMgXfGmUwXtKZYoFITsvm3CAVRmAYMkQND4TUMtCNLnQFMwAUmyFLUdUDMhFzAoYXFdCSKzZG6ZWzKo IUBrHbP9WvitBIIrHASjip5ZAULcKTWyPytuZYZfNXObVLByUIsaLZLlLLPwGDEcAZTeXVUcDJ1RJoWp JPTfFqXjTChlSZRaBHZfxd3OTDHvPIPdMZWlWvZrLQ BeLQMeICftVMRqDXP6XgIcNXZwVVVeRP8ANfMvTFNbOdV2OXnvDBEbUYCjkj2MMVCyTTZsYVtkByXzDG HzLGElBTkhZMNnAYU2Ent0IGDoXENxGG1USvLiHWHzJlV4SlLkGKZoMLOcxn3FJLGcMCCkFgHfYJJbKY IcZIMlAFq9qnTduIIbOCw5SV4EJ2UbbiJkCsDMJl9O e228SRIfPJWuJz0HM6xwQq0dLFVaNOHIAl3TQWd6JkW8HRS3PLHoIxU0S1XtUENgUTs2NSLpHMEoAfT7 Mzg+XYagCedvLyx7YJIkWcPkVRGeWCE6JCUsREDiUGZrBtVyNQ4vGWXYBd8+DQpzdGFydHhyZWYNCjM2 [id number] Procedure Social History Code Duration Value Status Description Data Source(s ) Smoking 12/21/2020 12:00:00 AM EDT Current every day smoker co mpleted Current every day smoker [facility] ([facility]) Smoking 12/20/2020 12:00:00 AM EDT Current every day smoker co mpleted Current every day smoker [facility] ([facility]) Smoking 12/06/2020 12:00:00 AM EDT Current Smoker completed Curre nt Smoker [facility]CW1 ([facility]) Smoking 12/06/2020 12:00:00 AM EDT Current Smoker completed Curre nt Smoker eCW1 ([facility]) Smoking 11/25/2020 12:00:00 AM EDT Current every day smoker co mpleted Current every day smoker [facility] ([facility]) Smoking 11/17/2020 12:00:00 AM EDT Current every day smoker co mpleted Current every day smoker [facility] ([facility]) Smoking 11/04/2020 12:00:00 AM EDT Current Smoker completed Curre nt Smoker eCW1 ([facility]) Smoking 10/28/2020 12:00:00 AM EDT Current every day smoker co mpleted Current every day smoker [facility] ([facility]) Smoking 10/10/2020 12:00:00 AM EDT Current every day smoker co mpleted Current every day smoker [facility] ([facility]) Smoking 09/23/2020 12:00:00 AM EDT Current every day smoker co mpleted Current every day smoker [facility] ([facility]) Smoking 09/20/2020 12:00:00 AM EDT Current Smoker completed Curre nt Smoker eCW1 ([facility]) Smoking 09/02/2020 12:00:00 AM EDT Current every day smoker co mpleted Current every day smoker [facility] ([facility]) Smoking 08/31/2020 12:00:00 AM EDT Current Smoker completed Curre nt Smoker eCW1 ([facility]) Smoking 08/29/2020 12:00:00 AM EDT Current Smoker completed Curre nt Smoker eCW1 ([facility]) Smoking 08/05/2020 12:00:00 AM EDT Current every day smoker co mpleted Current every day smoker [facility] ([facility]) Smoking 07/21/2020 12:00:00 AM EDT Current every day smoker co mpleted Current every day smoker [facility] ([facility]) Smoking 06/30/2020 12:00:00 AM EDT Current every day smoker co mpleted Current every day smoker [facility] ([facility]) Smoking 06/20/2020 12:00:00 AM EDT Current every day smoker co mpleted Current every day smoker [facility] ([facility]) Smoking 06/16/2020 12:00:00 AM EDT Current every day smoker co mpleted Current every day smoker [facility] ([facility]) Smoking 06/12/2020 12:00:00 AM EDT Current every day smoker co mpleted Current every day smoker [facility] ([facility]) Alcohol intake 06/09/2020 12:00:00 AM EDT Lifetime non-drinker (finding) completed Lifetime non-drinker (finding) [facility] Tobacco use and exposure 06/09/2020 12:00:00 AM EDT Never used co mpleted Never used [facility] Cigarettes smoked current (pack per day) - Reported 06/10/19 12:00:00 AM EDT UNK completed [facility] Smoking 06/09/2020 12:00:00 AM EDT Current every day smoker co mpleted Current every day smoker [facility] Smoking 05/05/2020 12:00:00 AM EST Current Smoker completed [facility] Smoker eCW1 ([facility]) Smoking 02/16/2020 12:00:00 AM EST Current every day smoker co mpleted Current every day smoker [facility] ([facility]) Smoking 02/15/2020 12:00:00 AM EST Current every day smoker co mpleted Current every day smoker [facility] ([facility]) Smoking 01/22/2020 12:00:00 AM EST Current every day smoker co mpleted Current every day smoker [facility] ([facility]) Smoking 01/18/2020 12:00:00 AM EST Current every day smoker co mpleted Current every day smoker [facility] ([facility]) Smoking 01/15/2020 12:00:00 AM EST Current every day smoker co mpleted Current every day smoker [facility] ([facility]) Smoking 12/22/2019 12:00:00 AM EDT Current every day smoker co mpleted Current every day smoker [facility] ([facility]) Alcohol intake 12/10/2019 12:00:00 AM EDT Lifetime non-drinker (finding) completed Lifetime non-drinker (finding) [facility] Smoking 12/07/2019 12:00:00 AM EDT Current every day smoker co mpleted Current every day smoker [facility] ([facility]) Smoking 12/04/2019 12:00:00 AM EDT Current every day smoker co mpleted Current every day smoker [facility] ([facility]) Vital Signs ID Date Data Source UNK Name Value Range Interpretation Code Description Data Source(s) Body height 62 [in_i] 62 [in_i] eCW1 ([facility][note 3]) Body weight 126 [lb_av] 126 [lb_av] eCW1 ([facility]) Body mass index (BMI) [Ratio] 23.04 kg/m2 23.04 kg/m2 eCW1 ([facility]) Body temperature 98.0 [degF] 98.0 [degF] eCW1 ( [facility]) Heart rate 106 /min 106 /min eCW1 ([facility]) Respiratory rate 18 /min 18 /min eCW1 ([facility]) Oxygen saturation in Arterial blood by Pulse oximetry 98 % 98 % eCW1 ([facility]) Body height 62 [in_i] 62 [in_i] eCW1 ([facility][note 3]) Body temperature 99.1 [degF] 99.1 [degF] eCW1 ( [facility]) Heart rate 97 /min 97 /min eCW1 ([facility]) Body weight 124.8 [lb_av] 124.8 [lb_av] eCW1 ([facility]) Respiratory rate 18 /min 18 /min eCW1 ([facility]) Oxygen saturation in Arterial blood by Pulse oximetry 98 % 98 % eCW1 ([facility]) Body mass index (BMI) [Ratio] 22.82 kg/m2 22.82 kg/m2 eCW1 ([facility]) Body temperature 98.0 [degF] 98.0 [degF] eCW1 ( [facility]) Body height 62 [in_i] 62 [in_i] eCW1 ([facility][note 3]) Body weight 124.6 [lb_av] 124.6 [lb_av] eCW1 ([facility]) Body mass index (BMI) [Ratio] 22.79 kg/m2 22.79 kg/m2 eCW1 ([facility]) Heart rate 92 /min 92 /min eCW1 ([facility]) Respiratory rate 18 /min 18 /min eCW1 ([facility]) Oxygen saturation in Arterial blood by Pulse oximetry 98 % 98 % eCW1 ([facility]) Body weight 126.6 [lb_av] 126.6 [lb_av] eCW1 ([facility]) Body height 61 [in_i] 61 [in_i] eCW1 ([facility]) Body mass index (BMI) [Ratio] 23.92 kg/m2 23.92 kg/m2 eCW1 ([facility]) Systolic blood pressure 108 mm[Hg] 108 mm[Hg] e CW1 ([facility]) Diastolic blood pressure 78 mm[Hg] 78 mm[Hg] eCW1 ([facility]) Body height 0.00 in Normal (applies to non-numeric resu lts) 0.00 in [facility] ([facility]) Body weight Measured 0.00 lbs Normal (applies to n on-numeric results) 0.00 lbs [facility] ([facility]) Body mass index (BMI) [Ratio] 0.00 kg/m2 No rmal (applies to non-numeric results) 0.00 kg/m2 [facility] ([facility]) Systolic blood pressure 0 mm[Hg] Normal (applies t o non-numeric results) 0 mm[Hg] [facility] ([facility]) Diastolic blood pressure 0 mm[Hg] Normal (applies to non-numeric results) 0 mm[Hg] [facility] ([facility]) Body height 0.00 in Normal (applies to non-numeric resu lts) 0.00 in [facility] ([facility]) Body weight Measured 0.00 lbs Normal (applies to n on-numeric results) 0.00 lbs [facility] ([facility]) Body mass index (BMI) [Ratio] 0.00 kg/m2 No rmal (applies to non-numeric results) 0.00 kg/m2 [facility] ([facility]) Systolic blood pressure 0 mm[Hg] Normal (applies t o non-numeric results) 0 mm[Hg] [facility] ([facility]) Diastolic blood pressure 0 mm[Hg] Normal (applies to non-numeric results) 0 mm[Hg] [facility] ([facility]) Systolic blood pressure 112 mm[Hg] 112 mm[Hg] e CW1 ([facility]) Diastolic blood pressure 76 mm[Hg] 76 mm[Hg] eCW1 ([facility]) Body weight 125 [lb_av] 125 [lb_av] eCW1 ([facility]) Body weight 56.7 kg 56.7 kg eCW1 ([facility]) Body mass index (BMI) [Ratio] 23.62 kg/m2 23.62 kg/m2 eCW1 ([facility]) Body height 61 [in_i] 61 [in_i] W1 ([facility]) Body height 0.00 in Normal (applies to non-numeric resu lts) 0.00 in [facility] ([facility]) Body weight Measured 0.00 lbs Normal (applies to n on-numeric results) 0.00 lbs [facility] ([facility]) Body mass index (BMI) [Ratio] 0.00 kg/m2 No rmal (applies to non-numeric results) 0.00 kg/m2 [facility] ([facility]) Systolic blood pressure 0 mm[Hg] Normal (applies t o non-numeric results) 0 mm[Hg] [facility] ([facility]) Diastolic blood pressure 0 mm[Hg] Normal (applies to non-numeric results) 0 mm[Hg] [facility] ([facility]) Body height 0.00 in Normal (applies to non-numeric resu lts) 0.00 in [facility] ([facility]) Body weight Measured 0.00 lbs Normal (applies to n on-numeric results) 0.00 lbs [facility] ([facility]) Body mass index (BMI) [Ratio] 0.00 kg/m2 No rmal (applies to non-numeric results) 0.00 kg/m2 [facility] ([facility]) Systolic blood pressure 0 mm[Hg] Normal (applies t o non-numeric results) 0 mm[Hg] [facility] ([facility]) Diastolic blood pressure 0 mm[Hg] Normal (applies to non-numeric results) 0 mm[Hg] [facility] ([facility]) Systolic blood pressure 0 mm[Hg] Normal (applies t o non-numeric results) 0 mm[Hg] [facility] ([facility]) Diastolic blood pressure 0 mm[Hg] Normal (applies to non-numeric results) 0 mm[Hg] [facility] ([facility]) Body height 0.00 in Normal (applies to non-numeric resu lts) 0.00 in [facility] ([facility]) Body weight Measured 0.00 lbs Normal (applies to n on-numeric results) 0.00 lbs [facility] ([facility]) Body mass index (BMI) [Ratio] 0.00 kg/m2 No rmal (applies to non-numeric results) 0.00 kg/m2 [facility] ([facility]) ID Date Data Source [id number] 06/09/2020 02:09:13 PM [facility] Name Value Range Interpretation Code Description Data Source(s) WEIGHT RECORDED 120 lb 120 lb [facility] Body height Measured 64 in 64 in [facility] ID Date Data Source [id number] 12/10/2019 03:46:51 PM [facility] Name Value Range Interpretation Code Description Data Source(s) WEIGHT RECORDED 130 lb 130 lb [facility] Body height Measured 64 in 64 in [facility] Patient Treatment Plan of Care Planned Activity Planned Date Details Description Data Source (s) Mupirocin 0.02 MG/MG Topical Ointment 12/06/2020 12:00:00 AM EDT eCW1 ([facility]) Tamoxifen 10 MG Oral Tablet 06/09/2020 12:00:00 AM [facility] Fluconazole 150 MG Oral Tablet 03/01/2020 12:00:00 AM EST eCW1 ([facility]) Tamoxifen 10 MG Oral Tablet 12/10/2019 12:00:00 AM [facility] Tamoxifen 10 MG Oral Tablet 09/01/2019 12:00:00 AM [facility]
--- NOTE | 2021-01-19 00:16 | REPVR ---
PROCEDURE INFORMATION: Exam: CT Abdomen And Pelvis With Contrast Exam date and time: 01/18/2021 11:14 PM Age: 30 years old Clinical indication: Abdominal pain; Localized; Right lower quadrant (rlq); Additional info: Rlq abd pain TECHNIQUE: Imaging protocol: Computed tomography of the abdomen and pelvis with contrast. Radiation optimization: All CT scans at this facility use at least one of these dose optimization techniques: automated exposure control; mA and/or kV adjustment per patient size (includes targeted exams where dose is matched to clinical indication); or iterative reconstruction. Contrast material: ISO; Contrast volume: 100 ml; Contrast route: INTRAVENOUS (IV); COMPARISON: CT ABD/PEL W/IV CONTRAST ONLY 12/26/2018 6:52 PM FINDINGS: Liver: There are no focal liver lesions present. Gallbladder and bile ducts: The gallbladder is normal. Pancreas: The pancreas is normal. Spleen: The spleen is normal. Adrenal glands: The adrenal glands are normal. Kidneys and ureters: The kidneys are normal. Stomach and bowel: The stomach is normal. There is no evidence of intestinal perforation or obstruction. Appendix: No findings of acute appendicitis.A normal appendix is identified. Intraperitoneal space: Trace free fluid is seen in the dependent right pelvis. Vasculature: There is no evidence of an abdominal aortic aneurysm. Lymph nodes: No lymphadenopathy. No lymphadenopathy. Urinary bladder: The urinary bladder is nondistended. No intrinsic bladder abnormality is seen. Hysterectomy. Reproductive: There is a likely 2.0 cm left adnexal cyst. The right adnexal region is unremarkable on the current study. Bones/joints: Unremarkable. No acute fracture. IMPRESSION: 1. No findings of acute appendicitis. 2. Trace free fluid in the dependent right pelvis, likely physiologic. 3. Likely 2 cm left adnexal cyst. Electronically signed by: Milla Hi On 01/19/2021 00:16:02 AM
--- NOTE | 2021-01-19 02:23 | REPVR ---
PROCEDURE INFORMATION: Exam: US Pelvis Complete, Transabdominal and US Pelvis, Transvaginal Exam date and time: 01/19/2021 1:17 AM Age: 30 years old Clinical indication: Pelvic pain; Additional info: Rlq pain eval for cyst/torsion TECHNIQUE: Imaging protocol: Real-time transabdominal and transvaginal pelvic ultrasound (complete) with image documentation. Transvaginal imaging was used for better evaluation of the endometrium, adnexa, and/or cervix. COMPARISON: CT ABD/PEL W/IV CONTRAST ONLY 01/18/2021 11:21 PM FINDINGS: - UTERUS: The uterus is not identified. The patient is status post hysterectomy in 2018. The central pelvis is obscured by bowel loops and bowel gas. No fluid collection is seen at the hysterectomy site. The cervix is not identified. - CUL DE SAC: No free fluid is seen within the visualized pelvis. Portions of the pelvis however are significantly compromised for sonographic evaluation due to the presence of bowel gas. Free fluid was noted on the comparison CT. - RIGHT OVARY/ADNEXA: The right ovary is not visualized. Sonographic visualization of the right adnexa is compromised by bowel gas. - LEFT OVARY/ADNEXA: The left ovary is not identified. Sonographic visualization of the left adnexa is compromised by bowel gas. The cyst identified on the comparison CT is not visualized sonographically. For further evaluation, consideration could be given to MRI or short interval follow-up ultrasound. - BLADDER: The urinary bladder is measured at 7.4 x 6.9 x 3.2 cm. No perivesical fluid is seen. Bladder wall thickness is 5 mm. Ureteral jets are not evaluated on this study. Postvoid residual was not assessed. - IMPRESSION: Evaluation sonographically is compromised by bowel gas limiting sonographic penetration. - The ovaries are not identified. Ovarian torsion cannot be excluded on this exam. - Other findings discussed above. Electronically signed by: Darinel Raymond On 01/19/2021 02:23:19 AM
[2021-01-19 03:00] VITALS: BP 113/58
--- NOTE | 2021-01-19 09:43 | ED PDOC ---
Post-Departure Follow-Up radiology report faxed to Miya Hayden Sarah MD Jan 19, 2021 09:43
== END 2021-01-19 03:25 | disposition home or self-care (01) ==
LOC: M ED 17:27
DX: R10.9 Unspecified abdominal pain (principal); F31.9 Bipolar disorder, unspecified; F17.200 Nicotine dependence, unspecified, uncomplicated; Z79.899 Other long term (current) drug therapy; Z91.011 Allergy to milk products; Z91.018 Allergy to other foods; Z88.8 Allergy status to other drugs, medicaments and biological substances
CPT/HCPCS: 74177; 76830; 76856; 80047; 80048; 80076; 81001; 83690; 85025; 96374; 96375; 99284; J2270; J2405; Q9967

== ENCOUNTER 2021-07-26 13:49 | Emergency (ER) | payer OTHER ==
[~2021-07-26] VITALS: Ht 160 cm; Wt 63.4 kg
[2021-07-26] MEDS ORDERED: QUET200T2 (14:01)
[2021-07-26] MEDS ORDERED: VRAY1.5C (14:01)
[2021-07-26] MEDS ORDERED: LAMO200T3 (14:01)
[2021-07-26] MEDS ORDERED: TAMO10TA (14:01)
[2021-07-26] MEDS ORDERED: CLON0.5T2 (14:01)
[2021-07-26 15:31] LABS: BASO % 0.5 % (0.0-1.0); EOS # 0.1 10^3/uL (0.0-0.5); EOS % 1.3 % (0.0-3.0); LYMPH # 2.6 10^3/uL (1.5-5.0); LYMPH % 34.6 % (24.0-44.0); MEAN CORPUSCULAR HEMOGLOBIN 31.8 pg (27.0-33.0); MEAN CORPUSCULAR HGB CONC 34.1 g/dl (32.0-36.5); MEAN CORPUSCULAR VOLUME 93.2 fl (80.0-96.0); MONO # 0.5 10^3/uL (0.0-0.8); NEUTROPHILS # 4.3 10^3/uL (1.5-8.5); NEUTROPHILS % 56.2 % (36.0-66.0); PLATELET COUNT, AUTOMATED 230 10^3/uL (150-450); WHITE BLOOD COUNT 7.6 10^3/uL (4.0-10.0)
[2021-07-26 15:52] LABS: ALBUMIN 3.9 GM/DL (3.2-5.2); ALT/SGPT 14 U/L (12-78); BILIRUBIN,DIRECT 0.1 MG/DL (0.0-0.2); BILIRUBIN,TOTAL 0.5 MG/DL (0.2-1.0); BLOOD UREA NITROGEN 11 MG/DL (7-18); CARBON DIOXIDE LEVEL 24 MEQ/L (21-32); CHLORIDE LEVEL 112 MEQ/L (98-107); CREATININE FOR GFR 0.91 MG/DL (0.55-1.30); GLOMERULAR FILTRATION RATE > 60.0 (>60); GLUCOSE, FASTING 97 MG/DL (70-100); LIPASE 124 U/L (73-393); SODIUM LEVEL 141 MEQ/L (136-145); TOTAL PROTEIN 6.6 GM/DL (6.4-8.2)
[2021-07-26 16:04] LABS: HCG, SERUM QUALITATIVE NEGATIVE (NEGATIVE)
[2021-07-26] MEDS ORDERED: KETOROLAC 30 MG/ML 1ML VIAL IV ONE (16:30)
[2021-07-26 17:56] VITALS: BP 119/79
== END 2021-07-26 17:57 | disposition home or self-care (01) ==
LOC: M ED 13:49
DX: N83.291 Other ovarian cyst, right side (principal); Z87.448 Personal history of other diseases of urinary system; N73.9 Female pelvic inflammatory disease, unspecified; R87.810 Cervical high risk human papillomavirus (HPV) DNA test positive; F17.200 Nicotine dependence, unspecified, uncomplicated; Z79.899 Other long term (current) drug therapy; Z88.8 Allergy status to other drugs, medicaments and biological substances; Z91.011 Allergy to milk products; Z91.018 Allergy to other foods
CPT/HCPCS: 76830; 76856; 80048; 80076; 83690; 84703; 85025; 93976; 96374; 99283; J1885

== ENCOUNTER → 2021-08-10 | Outpatient (REF) | payer OTHER ==
[~2021-08-10] MED LIST changes: +CLON0.5T2; +LAMO200T3; +QUET200T2; +TAMO10TA; +VRAY1.5C
== END ==
LOC: M SFHCWAGY 17:26
PROVIDERS: ATTEND Specialist
DX: Z12.4 Encounter for screening for malignant neoplasm of cervix (principal)

== ENCOUNTER 2021-09-03 11:41 | Emergency (ER) | payer OTHER ==
[~2021-09-03] VITALS: Ht 165.1 cm; Wt 63.2 kg
[2021-09-03] MEDS ORDERED: NAPR220C14 PO (12:08)
[2021-09-03 12:29] LABS: BASO # 0.1 10^3/uL (0.0-0.2); BASO % 0.7 % (0.0-1.0); EOS # 0.1 10^3/uL (0.0-0.5); EOS % 1.9 % (0.0-3.0); HEMATOCRIT 41.5 % (36.0-47.0); HEMOGLOBIN 13.8 g/dl (12.0-15.5); LYMPH # 3.3 10^3/uL (1.5-5.0); LYMPH % 47.7 % (24.0-44.0); MEAN CORPUSCULAR HEMOGLOBIN 31.3 pg (27.0-33.0); MEAN CORPUSCULAR HGB CONC 33.3 g/dl (32.0-36.5); MEAN CORPUSCULAR VOLUME 94.1 fl (80.0-96.0); MONO # 0.4 10^3/uL (0.0-0.8); MONO % 5.9 % (2.0-8.0); NEUTROPHILS % 43.4 % (36.0-66.0); PLATELET COUNT, AUTOMATED 250 10^3/uL (150-450); RED BLOOD COUNT 4.41 10^6/uL (4.00-5.40)
[2021-09-03 12:57] LABS: ALBUMIN 3.6 GM/DL (3.2-5.2); ALT/SGPT 12 U/L (12-78); BILIRUBIN,DIRECT < 0.1 MG/DL (0.0-0.2); BILIRUBIN,TOTAL 0.3 MG/DL (0.2-1.0); BLOOD UREA NITROGEN 12 MG/DL (7-18); CALCIUM LEVEL 8.3 MG/DL (8.5-10.1); CARBON DIOXIDE LEVEL 22 MEQ/L (21-32); CHLORIDE LEVEL 113 MEQ/L (98-107); CREATININE FOR GFR 0.88 MG/DL (0.55-1.30); GLOMERULAR FILTRATION RATE > 60.0 (>60); GLUCOSE, FASTING 86 MG/DL (70-100); LIPASE 90 U/L (73-393); POTASSIUM SERUM 4.2 MEQ/L (3.5-5.1); SODIUM LEVEL 142 MEQ/L (136-145); TOTAL PROTEIN 6.7 GM/DL (6.4-8.2)
[2021-09-03] MEDS ORDERED: ONDANSETRON 4MG/2ML VIAL IV ONE (14:25)
[2021-09-03] MEDS ORDERED: NS 1,000 ML IV ONE (14:25)
[2021-09-03] MEDS ORDERED: KETOROLAC 30 MG/ML 1ML VIAL IV ONE (14:25)
[2021-09-03 14:49] LABS: C REACTIVE PROTEIN QUANTITATIV 0.72 MG/DL (0.00-0.30)
[2021-09-03] MEDS ORDERED: ISOVUE-370 76% 100ML VIAL As Ordered ONE (14:57)
[2021-09-03 15:01] LABS: ERYTHROCYTE SEDIMENTATION RATE 5 mm/hr (0-20)
[2021-09-03] MEDS ORDERED: ONDA4TAB6 PO (16:33)
[2021-09-03 17:02] VITALS: BP 120/70
== END 2021-09-03 17:10 | disposition home or self-care (01) ==
LOC: M ED 11:41
DX: R10.31 Right lower quadrant pain (principal); Z79.899 Other long term (current) drug therapy; Z88.8 Allergy status to other drugs, medicaments and biological substances; Z91.018 Allergy to other foods; Z91.011 Allergy to milk products
CPT/HCPCS: 74177; 80048; 80076; 81001; 83690; 85025; 85652; 86140; 96361; 96374; 96375; 99284; J1885; J2405; Q9967

== ENCOUNTER → 2021-09-13 | Outpatient (CLI) | payer OTHER ==
[~2021-09-13] MED LIST changes: +NAPR220C14 PO; +ONDA4TAB6 PO
== END ==
LOC: M WHC 13:33
PROVIDERS: ATTEND Specialist
DX: Z12.31 Encounter for screening mammogram for malignant neoplasm of breast (principal)

== ENCOUNTER → 2022-02-16 | Outpatient (CLI) | payer OTHER ==
[~2022-02-16] MED LIST changes: -TAMO10TA; +TAMO10TA8
[2022-02-16 16:17] LABS: ALBUMIN 3.4 G/DL (3.2-5.2); ALKALINE PHOSPHATASE 73 U/L (46-116); ALT/SGPT 11 U/L (7.0-40); AST/SGOT 9 U/L (<34); BILIRUBIN,TOTAL 0.2 MG/DL (0.3-1.2); BLOOD UREA NITROGEN 15 MG/DL (9-23); CALCIUM LEVEL 8.6 MG/DL (8.5-10.1); CARBON DIOXIDE LEVEL 25 MMOL/L (20-31); CHLORIDE LEVEL 109 MMOL/L (98-107); CHOLESTEROL LEVEL 161 MG/DL (<200); CHOLESTEROL RISK RATIO 3.93 (<5); CREATININE FOR GFR 0.78 MG/DL (0.55-1.30); GLOMERULAR FILTRATION RATE > 60.0 (>60); GLUCOSE, FASTING 94 MG/DL (60-100); HDL CHOLESTEROL 40.9 MG/DL (>40); LDL CHOLESTEROL 99.3 MG/DL (<100); NON-HDL-C 120 MG/DL; POTASSIUM SERUM 4.3 MMOL/L (3.5-5.1); SODIUM LEVEL 140 MMOL/L (136-145); TOTAL 25(OH) VITAMIN D 24.4 NG/ML (20.0-100.0); TOTAL PROTEIN 6.6 G/DL (5.7-8.2); TRIGLYCERIDES LEVEL 104 MG/DL (<150)
== END ==
LOC: M LAB 15:10
DX: E78.1 Pure hyperglyceridemia (principal); E55.9 Vitamin D deficiency, unspecified

== ENCOUNTER → 2022-04-25 | Outpatient (REF) | payer OTHER | LOC: M PLALAB 11:08 | PROVIDERS: ATTEND Nurse Practitioner Family | DX: Z53.9 Procedure and treatment not carried out, unspecified reason (principal) ==

== ENCOUNTER → 2022-04-25 | Outpatient (CLI) | payer OTHER ==
[2022-04-25 19:54] LABS: HEPATITIS B CORE ANTIBODY IGM NEGATIVE (NEGATIVE); HEPATITIS B SURFACE ANTIGEN NEGATIVE (NEGATIVE); HEPATITIS C VIRUS ABY INDEX < 0.0 INDEX (<0.8); HIV 1&2 SCREEN CENTAUR NEGATIVE (NEGATIVE)
== END ==
LOC: M PLALAB 09:15
PROVIDERS: ATTEND Nurse Practitioner Family
DX: Z11.3 Encounter for screening for infections with a predominantly sexual mode of transmission (principal)

== ENCOUNTER 2022-05-23 18:25 | Emergency (ER) | payer OTHER ==
[~2022-05-23] VITALS: Ht 160 cm; Wt 65.0 kg
[2022-05-23 18:25] VITALS: BP 123/85
[~2022-05-23 18:25] MED LIST changes: +TOPI-254 PO; -TOPI50TA9 PO
== END 2022-05-23 22:08 | disposition left against medical advice (07) ==
LOC: M ED 18:25
DX: Z53.21 Procedure and treatment not carried out due to patient leaving prior to being seen by health care provider (principal)

== ENCOUNTER 2022-07-07 12:17 | Emergency (ER) | payer OTHER ==
[~2022-07-07] VITALS: Ht 162.6 cm; Wt 66.3 kg
[2022-07-07] MEDS ORDERED: LAMO150T3 (12:26)
[2022-07-07] MEDS ORDERED: DIVA500T94 (12:26)
[2022-07-07] MEDS ORDERED: EXCETAB32 PO (12:26)
[2022-07-07] MEDS ORDERED: KETOROLAC 30 MG/ML 1ML VIAL IV ONE (13:15)
[2022-07-07] MEDS ORDERED: ISOVUE-370 76% 100ML VIAL As Ordered ONE (15:30)
[2022-07-07 16:59] VITALS: BP 117/72
== END 2022-07-07 17:02 | disposition home or self-care (01) ==
LOC: M ED 12:17
DX: G43.909 Migraine, unspecified, not intractable, without status migrainosus (principal); F43.10 Post-traumatic stress disorder, unspecified; Z79.899 Other long term (current) drug therapy; Z88.8 Allergy status to other drugs, medicaments and biological substances; Z91.011 Allergy to milk products; Z91.018 Allergy to other foods
CPT/HCPCS: 70496; 70498; 70551; 80047; 96374; 99284; J1885; Q9967

== ENCOUNTER 2022-07-16 11:16 | Emergency (ER) | payer OTHER ==
[~2022-07-16] VITALS: Ht 162.6 cm; Wt 63.6 kg
[~2022-07-16 11:16] MED LIST changes: +DIVA500T94; +EXCETAB32 PO; +LAMO150T3
[2022-07-16 15:14] VITALS: BP 113/71
== END 2022-07-16 15:23 | disposition home or self-care (01) ==
LOC: M ED 11:16
DX: S99.912A Unspecified injury of left ankle, initial encounter (principal); X50.1XXA Overexertion from prolonged static or awkward postures, initial encounter; Y92.009 Unspecified place in unspecified non-institutional (private) residence as the place of occurrence of the external cause; Z79.899 Other long term (current) drug therapy; Z88.8 Allergy status to other drugs, medicaments and biological substances; Z91.011 Allergy to milk products; Z91.018 Allergy to other foods

== ENCOUNTER → 2022-08-10 | Outpatient (CLI) | payer OTHER ==
[2022-08-10 09:24] LABS: BASO % 0.4 % (0.0-1.0); EOS # 0.1 10^3/uL (0.0-0.5); EOS % 1.5 % (0.0-3.0); HEMATOCRIT 41.8 % (36.0-47.0); HEMOGLOBIN 13.7 g/dl (12.0-15.5); LYMPH # 3.9 10^3/uL (1.5-5.0); LYMPH % 55.3 % (24.0-44.0); MEAN CORPUSCULAR HEMOGLOBIN 31.4 pg (27.0-33.0); MEAN CORPUSCULAR HGB CONC 32.8 g/dl (32.0-36.5); MEAN CORPUSCULAR VOLUME 95.9 fl (80.0-96.0); MONO # 0.5 10^3/uL (0.0-0.8); MONO % 6.3 % (2.0-8.0); NEUTROPHILS # 2.6 10^3/uL (1.5-8.5); NEUTROPHILS % 36.2 % (36.0-66.0); PLATELET COUNT, AUTOMATED 223 10^3/uL (150-450); RED BLOOD COUNT 4.36 10^6/uL (4.00-5.40); WHITE BLOOD COUNT 7.1 10^3/uL (4.0-10.0)
[2022-08-10 09:27] LABS: ALBUMIN 4.2 G/DL (3.2-5.2); ALKALINE PHOSPHATASE 67 U/L (46-116); ALT/SGPT 12 U/L (7.0-40); AST/SGOT < 8 U/L (<34); BILIRUBIN,TOTAL 0.3 MG/DL (0.3-1.2); BLOOD UREA NITROGEN 11 MG/DL (9-23); CALCIUM LEVEL 8.8 MG/DL (8.5-10.1); CARBON DIOXIDE LEVEL 28 MMOL/L (20-31); CHLORIDE LEVEL 108 MMOL/L (98-107); CHOLESTEROL LEVEL 160 MG/DL (<200); CHOLESTEROL RISK RATIO 2.86 (<5); GLOMERULAR FILTRATION RATE > 60.0 (>60); GLUCOSE, FASTING 78 MG/DL (60-100); HDL CHOLESTEROL 55.8 MG/DL (>40); NON-HDL-C 104.2 MG/DL; POTASSIUM SERUM 3.7 MMOL/L (3.5-5.1); SODIUM LEVEL 142 MMOL/L (136-145); TOTAL PROTEIN 6.5 G/DL (5.7-8.2); TRIGLYCERIDES LEVEL 96 MG/DL (<150)
[2022-08-10 09:28] LABS: THYROID STIMULATING HORMONE 1.863 uIU/ML (0.55-4.78); THYROXINE (T4) 11.2 UG/DL (4.5-10.9)
[2022-08-10 09:34] LABS: HEMOGLOBIN A1c 4.8 % (4.0-6.0)
== END ==
LOC: M LAB 07:58
DX: G43.009 Migraine without aura, not intractable, without status migrainosus (principal); Z91.89 Other specified personal risk factors, not elsewhere classified; R79.89 Other specified abnormal findings of blood chemistry; R63.5 Abnormal weight gain

== ENCOUNTER → 2022-08-14 | Outpatient (CLI) | payer OTHER | LOC: M WHC 14:29 | PROVIDERS: ATTEND Nurse Practitioner Family | DX: N63.21 Unspecified lump in the left breast, upper outer quadrant (principal) ==

== ENCOUNTER → 2022-10-23 | Outpatient (REF) | payer OTHER | LOC: M LAB REF 16:10 | PROVIDERS: ATTEND Physician Assistant | DX: R30.0 Dysuria (principal) ==

== ENCOUNTER → 2022-11-06 | Outpatient (REF) | payer OTHER ==
[2022-11-06 17:14] LABS: GC DNA AMPLIFICATION NEGATIVE (NEGATIVE)
== END ==
LOC: M SFHCWAGY 13:05
PROVIDERS: ATTEND Nurse Practitioner Family
DX: N73.9 Female pelvic inflammatory disease, unspecified (principal)

== ENCOUNTER → 2022-11-23 | Outpatient (REF) | payer OTHER | LOC: M SFHCWAGY 13:23 | PROVIDERS: ATTEND Specialist | DX: Z12.4 Encounter for screening for malignant neoplasm of cervix (principal) ==

== ENCOUNTER 2023-02-07 14:25 | Inpatient (IN) | payer MEDICAID, OTHER ==
[~2023-02-07] VITALS: Ht 160 cm; Wt 68.8 kg
[~2023-02-07 14:25] MED LIST changes: -LAMO150T3; +LAMO150T3 PO; +TOPI-21 PO; -TOPI-254 PO
[2023-02-07] MEDS ORDERED: CEPH250T PO (14:47)
[2023-02-07] MEDS ORDERED: QUET150T18 PO (14:47)
[2023-02-07] MEDS ORDERED: CLON1TAB8 PO (14:47)
[2023-02-07] MEDS ORDERED: VRAY3CAP PO (14:47)
[2023-02-07 15:44] LABS: HEMATOCRIT 41.2 % (36.0-47.0); HEMOGLOBIN 13.9 g/dl (12.0-15.5); MEAN CORPUSCULAR HEMOGLOBIN 32.2 pg (27.0-33.0); MEAN CORPUSCULAR HGB CONC 33.7 g/dl (32.0-36.5); MEAN CORPUSCULAR VOLUME 95.4 fl (80.0-96.0); PLATELET COUNT, AUTOMATED 264 10^3/uL (150-450); RED BLOOD COUNT 4.32 10^6/uL (4.00-5.40); WHITE BLOOD COUNT 8.1 10^3/uL (4.0-10.0)
[2023-02-07 16:10] LABS: AMPHETAMINES LEVEL URINE NEGATIVE (NEGATIVE); BARBITURATES URINE NEGATIVE (NEGATIVE); COCAINE METABOLITE URINE NEGATIVE (NEGATIVE)
[2023-02-07 16:11] LABS: BENZODIAZEPINES URINE NEGATIVE (NEGATIVE); CANNABINOIDS URINE NEGATIVE (NEGATIVE); METHADONE URINE NEGATIVE (NEGATIVE); OPIATES URINE NEGATIVE (NEGATIVE); PHENCYCLIDINE URINE NEGATIVE (NEGATIVE)
[2023-02-07 16:15] LABS: ETHYL ALCOHOL (ETHANOL) < 0.003 % (0.000-0.010)
[2023-02-07 16:17] LABS: ALKALINE PHOSPHATASE 64 U/L (46-116); ALT/SGPT 20 U/L (7.0-40); AST/SGOT 10 U/L (<34); BILIRUBIN,DIRECT < 0.1 MG/DL (<0.4); BILIRUBIN,TOTAL 0.3 MG/DL (0.3-1.2); BLOOD UREA NITROGEN 12 MG/DL (9-23); CALCIUM LEVEL 8.9 MG/DL (8.5-10.1); CARBON DIOXIDE LEVEL 28 MMOL/L (20-31); CHLORIDE LEVEL 109 MMOL/L (98-107); CREATININE FOR GFR 0.77 MG/DL (0.55-1.30); GLOMERULAR FILTRATION RATE > 60.0 (>60); GLUCOSE, FASTING 87 MG/DL (60-100); POTASSIUM SERUM 4.4 MMOL/L (3.5-5.1); SALICYLATE LEVEL < 3.0 MG/DL (<30); SODIUM LEVEL 141 MMOL/L (136-145); TOTAL PROTEIN 6.6 G/DL (5.7-8.2)
[2023-02-07 16:18] LABS: HCG, SERUM QUALITATIVE NEGATIVE (NEGATIVE); THYROID STIMULATING HORMONE 0.727 uIU/ML (0.55-4.78)
[2023-02-07] MEDS ORDERED: diphenhydrAMINE 25MG CAP PO PRN (17:40)
[2023-02-07] MEDS ORDERED: IBUPROFEN 400MG TAB PO PRN (17:40)
[2023-02-07] MEDS ORDERED: traZODone 50 MG TAB PO PRN (17:40)
[2023-02-07] MEDS ORDERED: MOM 30ML SUSPENSION UDC PO PRN (17:40)
[2023-02-07] MEDS ORDERED: MAALOX 30 ML SUSP *UDC PO PRN (17:40)
[2023-02-07] MEDS ORDERED: ACETAMINOPHEN TAB 650MG DOSE (2X325MG) PO PRN (17:40)
[2023-02-07] MEDS ORDERED: HOME MED LIST COMPLETE! XX SCH (18:55)
[2023-02-07 21:04] VITALS: BP 125/77; TEMP 97.7; O2SAT 97
[2023-02-07] MEDS: clonazePAM 0.5 MG TAB PO SCH (21:46)
[2023-02-07] MEDS ORDERED: lamoTRIgine 100MG TAB PO ONE (22:00)
[2023-02-07] MEDS ORDERED: CARIPRAZINE 3MG CAPSULE (VRAYLAR) PO ONE (22:00)
[2023-02-07] MEDS ORDERED: QUEtiapine FUMARATE 50MG TAB PO ONE (22:00)
[2023-02-08 06:41] VITALS: BP 110/57; TEMP 97.8; O2SAT 99
[2023-02-08] MEDS: clonazePAM 0.5 MG TAB PO SCH ×2 (08:54→20:22)
[2023-02-08] MEDS ORDERED: INFLUENZA QUADRIVALENT PF VACCINE 0.5ML SYRINGE IM.IMMUN ONE (09:00)
[2023-02-08] MEDS ORDERED: VRAY1.5C PO (10:02)
[2023-02-08] MEDS: NICOTINE 21MG/24HR 1 EA TRANSDERMAL TD PRN (11:11)
[2023-02-08 16:19] VITALS: BP 136/67; TEMP 98.7; O2SAT 100
[2023-02-08] MEDS: lamoTRIgine 25MG TAB PO SCH (20:22)
[2023-02-08] MEDS: CARIPRAZINE 1.5MG CAPSULE (VRAYLAR) PO SCH (20:22)
[2023-02-08] MEDS: QUEtiapine FUMARATE 50MG TAB PO SCH (20:22)
[2023-02-08] MEDS: CEPHALEXIN 250MG CAPSULE PO SCH (21:20)
[2023-02-09 06:19] VITALS: BP 121/59; TEMP 97; O2SAT 96
[2023-02-09] MEDS: clonazePAM 0.5 MG TAB PO SCH ×2 (09:10→20:05)
[2023-02-09] MEDS: NICOTINE 21MG/24HR 1 EA TRANSDERMAL TD PRN (11:45)
[2023-02-09] MEDS: EXCEDRIN MIGRAINE TABLET PO PRN (15:32)
[2023-02-09 16:59] VITALS: BP 118/64; TEMP 98.9
[2023-02-09] MEDS: CEPHALEXIN 250MG CAPSULE PO SCH (20:05)
[2023-02-09] MEDS: CARIPRAZINE 1.5MG CAPSULE (VRAYLAR) PO SCH (20:06)
[2023-02-09] MEDS: QUEtiapine FUMARATE 50MG TAB PO SCH (20:06)
[2023-02-09] MEDS: lamoTRIgine 25MG TAB PO SCH (20:06)
[2023-02-10 05:51] VITALS: BP 138/76; TEMP 98.9; O2SAT 98
[2023-02-10] MEDS: clonazePAM 0.5 MG TAB PO SCH ×2 (08:04→20:15)
[2023-02-10] MEDS: EXCEDRIN MIGRAINE TABLET PO PRN ×2 (08:05→16:23)
[2023-02-10] MEDS: NICOTINE 21MG/24HR 1 EA TRANSDERMAL TD PRN (11:02)
[2023-02-10 18:19] VITALS: BP 140/80; TEMP 98.4
[2023-02-10] MEDS: QUEtiapine FUMARATE 50MG TAB PO SCH (20:16)
[2023-02-10] MEDS: lamoTRIgine 25MG TAB PO SCH (20:16)
[2023-02-10] MEDS: CARIPRAZINE 1.5MG CAPSULE (VRAYLAR) PO SCH (20:16)
[2023-02-10] MEDS: CEPHALEXIN 250MG CAPSULE PO SCH (20:49)
[2023-02-11 06:32] VITALS: BP 121/81; TEMP 99.1; O2SAT 98
[2023-02-11] MEDS: clonazePAM 0.5 MG TAB PO SCH (08:01)
== END 2023-02-11 10:45 | disposition home or self-care (01) | DRG 753 ==
LOC: M ED 14:25 → M ED INP 17:38 → M PSY 20:40
PROVIDERS: ADMIT Student in an Organized Health Care Education/Training Program; ATTEND Student in an Organized Health Care Education/Training Program
DX: F31.5 Bipolar disorder, current episode depressed, severe, with psychotic features (principal); R45.851 Suicidal ideations; F17.200 Nicotine dependence, unspecified, uncomplicated; F12.90 Cannabis use, unspecified, uncomplicated; F41.1 Generalized anxiety disorder; F90.9 Attention-deficit hyperactivity disorder, unspecified type; Z88.8 Allergy status to other drugs, medicaments and biological substances; Z79.899 Other long term (current) drug therapy

== ENCOUNTER 2024-01-05 15:19 | Emergency (ER) | payer MEDICAID, OTHER ==
[~2024-01-05] VITALS: Ht 160 cm; Wt 72.3 kg
[~2024-01-05 15:19] MED LIST changes: -ARIP1TAB43 PO; +ARIP20TA51 PO; +CEPH250T PO; +CLON1TAB8 PO; +ONDA-282 PO; -ONDA4TAB6 PO; +QUET150T18 PO; +VRAY1.5C PO; +VRAY3CAP PO
[2024-01-05] MEDS ORDERED: QUET1TAB17 PO (15:27)
[2024-01-05 17:20] LABS: BASO % 0.6 % (0.0-1.0); EOS # 0.1 10^3/uL (0.0-0.5); EOS % 1.6 % (0.0-3.0); HEMATOCRIT 44.1 % (36.0-47.0); HEMOGLOBIN 15.2 g/dl (12.0-15.5); LYMPH # 3.3 10^3/uL (1.5-5.0); LYMPH % 47.2 % (24.0-44.0); MEAN CORPUSCULAR HEMOGLOBIN 32.1 pg (27.0-33.0); MEAN CORPUSCULAR HGB CONC 34.5 g/dl (32.0-36.5); MONO # 0.5 10^3/uL (0.0-0.8); MONO % 6.5 % (2.0-8.0); NEUTROPHILS # 3.1 10^3/uL (1.5-8.5); NEUTROPHILS % 43.8 % (36.0-66.0); PLATELET COUNT, AUTOMATED 293 10^3/uL (150-450); RED BLOOD COUNT 4.74 10^6/uL (4.00-5.40)
[2024-01-05] MEDS ORDERED: ISOVUE-370 76% 100ML VIAL As Ordered ONE (17:23)
[2024-01-05 17:36] LABS: HCG, SERUM QUALITATIVE NEGATIVE (NEGATIVE)
[2024-01-05 17:37] LABS: LIPASE 28 U/L (12-53)
[2024-01-05 17:40] LABS: ALBUMIN 4.1 G/DL (3.2-5.2); ALKALINE PHOSPHATASE 94 U/L (35-104); ALT/SGPT 16 U/L (7.0-40); AST/SGOT 8 U/L (<34); BILIRUBIN,DIRECT 0.1 MG/DL (<0.4); BILIRUBIN,TOTAL 0.6 MG/DL (0.3-1.2); TOTAL PROTEIN 7.1 G/DL (5.7-8.2)
[2024-01-05 17:48] LABS: AMPHETAMINES LEVEL URINE NEGATIVE (NEGATIVE); BARBITURATES URINE NEGATIVE (NEGATIVE); BENZODIAZEPINES URINE NEGATIVE (NEGATIVE); CANNABINOIDS URINE NEGATIVE (NEGATIVE); METHADONE URINE NEGATIVE (NEGATIVE); OPIATES URINE NEGATIVE (NEGATIVE); PHENCYCLIDINE URINE NEGATIVE (NEGATIVE)
[2024-01-05 17:49] LABS: COCAINE METABOLITE URINE NEGATIVE (NEGATIVE)
[2024-01-05] MEDS: ONDANSETRON 4MG 2ML VIAL IV ONE (18:00)
[2024-01-05] MEDS: KETOROLAC 30 MG/ML 1ML VIAL IV ONE (18:00)
[2024-01-05] MEDS ORDERED: ONDA-282 PO (19:58)
[2024-01-05] MEDS ORDERED: IBUP-1022 PO (19:58)
[2024-01-05 20:09] VITALS: BP 120/77; TEMP 97.9; O2SAT 98
== END 2024-01-05 20:12 | disposition home or self-care (01) ==
LOC: M ED 15:19
DX: N83.291 Other ovarian cyst, right side (principal); F17.200 Nicotine dependence, unspecified, uncomplicated; Z91.011 Allergy to milk products; Z91.018 Allergy to other foods; Z88.8 Allergy status to other drugs, medicaments and biological substances; Z79.82 Long term (current) use of aspirin; Z79.83 Long term (current) use of bisphosphonates; Z79.1 Long term (current) use of non-steroidal anti-inflammatories (NSAID); Z79.899 Other long term (current) drug therapy
CPT/HCPCS: 71045; 74177; 76830; 76856; 80047; 80076; 80307; 81000; 81015; 83690; 84703; 85025; 87486; 87581; 87633; 87798; 93976; 96374; 99284; J1885; J2405; Q9967

== ENCOUNTER → 2024-12-17 | Outpatient (REF) | payer OTHER ==
[~2024-12-17] MED LIST changes: +DIVA-41; -DIVA500T94; +IBUP600T42 PO; +QUET1TAB17 PO
== END ==
LOC: M PLALAB 07:16
PROVIDERS: ATTEND Nurse Practitioner Family
DX: N89.8 Other specified noninflammatory disorders of vagina (principal)

== ENCOUNTER → 2025-01-05 | Outpatient (CLI) | payer OTHER | LOC: M WUC 13:42 | PROVIDERS: ATTEND Physician Assistant | DX: M25.511 Pain in right shoulder (principal) ==

== ENCOUNTER → 2025-02-23 | Outpatient (REF) | payer OTHER ==
[2025-02-23 11:59] LABS: PROLACTIN 10.89 NG/ML
[2025-02-23 12:00] LABS: FREE T4 1.42 NG/DL (0.89-1.76)
== END ==
LOC: M SFHCPLAZ 11:38
PROVIDERS: ATTEND Nurse Practitioner Family
DX: N64.3 Galactorrhea not associated with childbirth (principal)

== ENCOUNTER → 2025-02-26 | Outpatient (REF) | payer OTHER ==
[2025-02-26 18:15] LABS: APPEARANCE, URINE MANUAL CLOUDY (CLEAR)
[2025-02-26 18:16] LABS: COLOR, URINE MANUAL ORANGE (YELLOW)
[2025-02-26 18:27] LABS: PH,URINE MAN OBSCURED UNITS (5.0 - 7.0)
[2025-02-26 18:28] LABS: BILIRUBIN, URINE MANUAL OBSCURED (NEGATIVE); BLOOD URINE MANUAL OBSCURED (NEGATIVE); GLUCOSE, URINE (UA) MANUAL OBSCURED mg/dL (NEGATIVE); KETONE, URINE MANUAL OBSCURED mg/dL (NEGATIVE); LEUKOCYTE ESTERASE, URINE MAN OBSCURED (NEGATIVE); NITRITE, URINE MANUAL OBSCURED (NEGATIVE); PROTEIN, URINE MANUAL OBSCURED mg/dL (NEGATIVE); SPECIFIC GRAVITY,URINE MANUAL 1.024 (1.002-1.035); UROBILINOGEN, URINE MANUAL OBSCURED mg/dl (NORMAL)
[2025-02-26 18:38] LABS: RBC, URINE 40-50 /hpf (0-3); SQUAMOUS EPITHELIAL CELL URINE MOD AMOUNT /hpf (SMALL AMT); WBC, URINE TNTC /hpf (0-3)
[2025-02-26 18:39] LABS: BACTERIA, URINE LARGE AMOUNT; HYALINE CAST, URINE NONE SEEN /lpf (0-1)
== END ==
LOC: M LAB REF 17:11
PROVIDERS: ATTEND Physician Assistant
DX: N39.0 Urinary tract infection, site not specified (principal)